=== PATIENT | male | born 1955 | race Caucasian/White ===

== ENCOUNTER 2020-05-04 07:38 | Outpatient (REF) | payer OTHER, SELFPAY ==
[2020-05-04 12:02] LABS: Prostate Specific Antigen 6.62 ng/mL (<0.05-4.0)
== END 2020-05-04 07:39 | disposition home or self-care (01) ==
LOC: HO.HMGCLDS 07:38
PROVIDERS: PCP Internal Medicine; Visit Provider Urology
DX: C61 Malignant neoplasm of prostate (principal)
CPT/HCPCS: 84153

== ENCOUNTER → 2020-05-10 15:11 | Outpatient (BNVA) | payer OTHER, SELFPAY | PROVIDERS: PCP Internal Medicine; Visit Provider Urology | DX: Z76.89 Persons encountering health services in other specified circumstances (principal) ==

== ENCOUNTER 2020-05-21 07:42 | Outpatient (REF) | payer OTHER, SELFPAY ==
[2020-05-21 11:43] LABS: Alanine Aminotransferase 33 U/L (0-40); Albumin Level 4.2 g/dL (3.5-5.0); Alkaline Phosphatase 84 U/L (39-117); Anion Gap 13 (12-20); Aspartate Amino Transferase 23 U/L (5-37); Bilirubin Total 1.1 mg/dL (0.0-1.0); Blood Urea Nitrogen 15 mg/dL (9-16); Calcium 9.2 mg/dL (8.4-10.2); Carbon Dioxide 29 mmol/L (22-29); Chloride 102 mmol/L (96-108); Estimated Glomerular Filt Rate > 60; Glucose Random 142 mg/dL (60-115); Potassium 4.3 mmol/l (3.3-5.1); Sodium 140 mmol/L (135-145); Total Protein 7.6 g/dL (6.5-8.0)
[2020-05-21 11:51] LABS: Ferritin 289 ng/mL (20-250); TSH reflex Free T4 1.08 mIU/mL (0.32-4.0)
== END 2020-05-21 07:43 | disposition home or self-care (01) ==
LOC: HO.HMGCLDS 07:42
PROVIDERS: PCP Internal Medicine; Visit Provider Internal Medicine
DX: I10 Essential (primary) hypertension (principal); C61 Malignant neoplasm of prostate; E83.110 Hereditary hemochromatosis; E78.9 Disorder of lipoprotein metabolism, unspecified; E03.9 Hypothyroidism, unspecified
CPT/HCPCS: 36415; 80053; 82728; 84443

== ENCOUNTER 2020-08-05 07:35 | Outpatient (REF) | payer OTHER, SELFPAY ==
[2020-08-05 11:51] LABS: PSA,Total (Free>4and<10) 7.05 ng/mL (0.00-4.00)
[2020-08-06 11:22] LABS: Free Prostate Spec Ag 1.2 ng/mL; Percent Free Prostate Spec Ag 18 % (calc) (>25); Prostate Specific Ag Total 6.5 ng/mL (< OR = 4.0)
== END 2020-08-05 07:36 | disposition home or self-care (01) ==
LOC: HO.HMGCLDS 07:35
PROVIDERS: PCP Internal Medicine; Visit Provider Urology
DX: R97.20 Elevated prostate specific antigen [PSA] (principal); N40.1 Benign prostatic hyperplasia with lower urinary tract symptoms; N13.8 Other obstructive and reflux uropathy; Z12.5 Encounter for screening for malignant neoplasm of prostate
CPT/HCPCS: 36415; 84153; 84154

== ENCOUNTER 2020-08-27 07:51 | Outpatient (REF) | payer OTHER, SELFPAY ==
[2020-08-27 12:10] LABS: Alanine Aminotransferase 29 U/L (0-40); Albumin Level 4.1 g/dL (3.5-5.0); Alkaline Phosphatase 72 U/L (39-117); Anion Gap 14 (12-20); Aspartate Amino Transferase 26 U/L (5-37); Bilirubin Total 1.1 mg/dL (0.0-1.0); Blood Urea Nitrogen 17 mg/dL (9-16); Calcium 9.3 mg/dL (8.4-10.2); Carbon Dioxide 27 mmol/L (22-29); Chloride 102 mmol/L (96-108); Estimated Glomerular Filt Rate > 60; Glucose Random 105 mg/dL (60-115); Potassium 3.8 mmol/L (3.3-5.1); Sodium 139 mmol/L (135-145); Total Protein 7.6 g/dL (6.5-8.0)
[2020-08-27 12:45] LABS: Ferritin 307 ng/mL (20-250)
== END 2020-08-27 07:52 | disposition home or self-care (01) ==
LOC: HO.HMGCLDS 07:51
PROVIDERS: PCP Internal Medicine; Visit Provider Internal Medicine
DX: E03.8 Other specified hypothyroidism (principal); E66.9 Obesity, unspecified; E78.9 Disorder of lipoprotein metabolism, unspecified; I10 Essential (primary) hypertension; R79.89 Other specified abnormal findings of blood chemistry
CPT/HCPCS: 36415; 80053; 82728

== ENCOUNTER → 2020-09-13 07:57 | Outpatient (BNV) | payer OTHER, SELFPAY | PROVIDERS: PCP Internal Medicine; Visit Provider Internal Medicine Medical Oncology | DX: E83.119 Hemochromatosis, unspecified (principal); D11.9 Benign neoplasm of major salivary gland, unspecified; Z85.46 Personal history of malignant neoplasm of prostate | CPT/HCPCS: 99213; 99214 ==

== ENCOUNTER 2020-09-22 08:49 | Outpatient (REF) | payer OTHER, SELFPAY ==
--- NOTE | ~2020-09-22 | US_ITS ---
EXAMINATION: US SOFT TISSUE NECK CLINICAL INFORMATION: Right parotid mass COMPARISON: None TECHNIQUE: Ultrasound of the right parotid region using a linear transducer. Comparison imaging of the left side was performed. FINDINGS: There is a complex cyst seen in the right parotid gland that measures 2.3 x 1.8 x 1.6 cm. This demonstrates slight wall irregularity and thickening and some internal echoes. This is avascular. There are 2 adjacent irregularly-shaped cystic lesions slightly inferior and laterally in the right parotid gland that measure 1.6 x 1.2 x 2.2 cm and 2 x 1.1 x 1.9 cm. These demonstrate a slight wall thickening and vascularity. There are adjacent lymph nodes. These are upper normal in size. Largest lymph node measures 1.7 x 1.6 x 1.3 cm in sagittal AP and transverse dimension. This demonstrates central hilar flow. This demonstrates slightly slitlike hilum and cortical thickening. Comparison of the contralateral left parotid gland demonstrates a complex cystic lesion in the left parotid gland measuring 1.7 x 1.6 x 1.3 cm. This contains several thin septations. US/US soft tiss head and/or neck IMPRESSION: Complex cystic lesions in the right parotid gland, largest measuring 2.3 x 1.8 x 1.6 cm. Slightly enlarged right cervical lymph nodes. Infectious and neoplastic process should be considered. Parotid lesion(s) would be amenable to ultrasound-guided fine-needle aspiration. 1.7 x 1.6 x 1.3 cm complex cystic lesion in the left parotid gland.
== END 2020-09-22 08:50 | disposition home or self-care (01) ==
LOC: HO.HMGCX 08:49
PROVIDERS: Visit Provider Nurse Practitioner Family
DX: K11.8 Other diseases of salivary glands (principal)
CPT/HCPCS: 76536

== ENCOUNTER 2020-11-23 07:29 | Outpatient (REF) | payer OTHER, SELFPAY ==
[2020-11-23 12:15] LABS: Blood Urea Nitrogen 17 mg/dL (9-16); Estimated Glomerular Filt Rate > 60
== END 2020-11-23 07:30 | disposition home or self-care (01) ==
LOC: HO.HMGCLDS 07:29
PROVIDERS: PCP Internal Medicine; Visit Provider Otolaryngology
DX: Z01.812 Encounter for preprocedural laboratory examination (principal); D37.030 Neoplasm of uncertain behavior of the parotid salivary glands
CPT/HCPCS: 36415; 82565; 84520

== ENCOUNTER 2020-12-09 08:44 | Outpatient (REF) | payer OTHER, SELFPAY ==
--- NOTE | ~2020-12-09 | US_ITS ---
EXAMINATION: US RETROPERITONEAL LIMITED (AORTA) CLINICAL INFORMATION: Abdominal aortic aneurysm screening. History of smoking. COMPARISON: None TECHNIQUE: Monzon-scale, color Doppler and spectral Doppler evaluation of the abdominal aorta. FINDINGS: The aorta is normal. The measurements of the aorta in maximum AP and transverse dimensions respectively are as follows: Proximal: 2.7 x 2.6 cm. Mid: 2.1 x 2.3 cm. Distal: 2.0 x 1.8 cm. PSV: 78 cm/s. The measurements of the common iliac arteries in maximum AP and TRV dimensions are as follows: Right Common Iliac Artery: 1.0 x 1.3 cm. Left Common Iliac Artery: 1.6 x 1.8 cm. US/US aorta IMPRESSION: No abdominal aortic or iliac artery aneurysm.
== END 2020-12-09 08:45 | disposition home or self-care (01) ==
LOC: HO.HMGCX 08:44
PROVIDERS: PCP Internal Medicine; Visit Provider Internal Medicine
DX: Z13.6 Encounter for screening for cardiovascular disorders (principal)
CPT/HCPCS: 76775

== ENCOUNTER 2020-12-13 07:26 | Outpatient (REF) | payer OTHER, SELFPAY ==
[2020-12-13 12:07] LABS: Prostate Specific Antigen 6.93 ng/mL (<0.05-4.0)
== END 2020-12-13 07:27 | disposition home or self-care (01) ==
LOC: HO.HMGCLDS 07:26
PROVIDERS: PCP Internal Medicine; Visit Provider Urology
DX: Z12.5 Encounter for screening for malignant neoplasm of prostate (principal); R97.20 Elevated prostate specific antigen [PSA]
CPT/HCPCS: 36415; 84153

== ENCOUNTER → 2020-12-15 15:14 | Outpatient (BNVA) | payer OTHER, SELFPAY | PROVIDERS: PCP Internal Medicine; Visit Provider Urology | DX: R97.20 Elevated prostate specific antigen [PSA] (principal) ==

== ENCOUNTER 2021-02-08 09:02 | Outpatient (REF) | payer OTHER, SELFPAY ==
[2021-02-08 11:48] LABS: Eosinophils Absolute Auto 0.1 X10*3/uL (0.0-0.4); Eosinophils Percent Auto 1.3 % (0-4); MANUAL DIFF FLAG SCAN; PLT CLUMP 1; SCAN SMEAR FLAG 1
[2021-02-08 11:50] LABS: Basophils Absolute Auto 0.1 X10*3/uL (0.0-0.2); Basophils Percent Auto 0.8 % (0-2); Hematocrit 43.3 % (42-52); Hemoglobin 14.5 g/dl (14.0-18.0); Imm Gran Abs Auto 0.03 X10*3/uL (0.00-0.03); Imm Gran Pct Auto 0.3 % (0.0-0.4); Lymphocytes Percent Auto 22.2 % (20-40); Mean Corpuscular HGB Conc 33.5 g/dl (31.0-36.0); Mean Corpuscular Hemoglobin 28.6 pg (27.0-33.0); Mean Corpuscular Volume 85.4 fL (80-98); Monocytes Percent Auto 10.3 % (2-11); Neutrophils Percent Auto 65.1 % (45-73); Red Blood Count 5.07 X10*6/uL (4.60-5.80); Red Cell Distribution Width 13.8 % (11.0-16.0); White Blood Count 9.2 X10*3/uL (4.8-10.8)
[2021-02-08 12:08] LABS: Alanine Aminotransferase 32 U/L (0-40); Albumin Level 4.1 g/dL (3.5-5.0); Alkaline Phosphatase 67 U/L (39-117); Anion Gap 16 (12-20); Aspartate Amino Transferase 28 U/L (5-37); Bilirubin Total 1.2 mg/dL (0.0-1.0); Blood Urea Nitrogen 15 mg/dL (9-16); Calcium 9.5 mg/dL (8.4-10.2); Carbon Dioxide 22 mmol/L (22-29); Chloride 106 mmol/L (96-108); Estimated Glomerular Filt Rate > 60; Glucose Random 97 mg/dL (60-115); Potassium 4.5 mmol/L (3.3-5.1); Sodium 139 mmol/L (135-145); Total Protein 7.4 g/dL (6.5-8.0)
[2021-02-08 12:28] LABS: SLIDE REVIEW VERIFIED
[2021-02-08 12:29] LABS: TSH reflex Free T4 0.54 uIU/mL (0.32-4.0)
== END 2021-02-08 09:03 | disposition home or self-care (01) ==
LOC: HO.HMGCLDS 09:02
PROVIDERS: PCP Internal Medicine; Visit Provider Internal Medicine
DX: Z01.818 Encounter for other preprocedural examination (principal); I10 Essential (primary) hypertension; E03.8 Other specified hypothyroidism; E78.9 Disorder of lipoprotein metabolism, unspecified; K11.8 Other diseases of salivary glands
CPT/HCPCS: 36415; 80053; 82550; 84443; 85025

== ENCOUNTER 2021-03-09 09:11 | Outpatient (REF) | payer OTHER, SELFPAY ==
[2021-03-09 11:29] LABS: MANUAL DIFF FLAG NO
[2021-03-09 11:33] LABS: Basophils Absolute Auto 0.1 X10*3/uL (0.0-0.2); Basophils Percent Auto 0.8 % (0-2); Eosinophils Absolute Auto 0.2 X10*3/uL (0.0-0.4); Eosinophils Percent Auto 1.9 % (0-4); Hematocrit 43.6 % (42-52); Hemoglobin 14.4 g/dl (14.0-18.0); Imm Gran Abs Auto 0.03 X10*3/uL (0.00-0.03); Imm Gran Pct Auto 0.4 % (0.0-0.4); Lymphocytes Absolute Auto 2.2 X10*3/uL (1.2-4.9); Lymphocytes Percent Auto 26.1 % (20-40); Mean Corpuscular Hemoglobin 28.1 pg (27.0-33.0); Mean Corpuscular Volume 85.2 fL (80-98); Mean Platelet Volume 11.6 fL (9.4-12.4); Monocytes Absolute Auto 0.7 X10*3/uL (0.1-1.2); Monocytes Percent Auto 8.5 % (2-11); Neutrophils Absolute Auto 5.3 X10*3/uL (2.0-8.3); Neutrophils Percent Auto 62.3 % (45-73); Platelet Count 289 X10*3/uL (160-400); Red Blood Count 5.12 X10*6/uL (4.60-5.80); Red Cell Distribution Width 13.4 % (11.0-16.0); White Blood Count 8.6 X10*3/uL (4.8-10.8)
[2021-03-09 11:59] LABS: Alanine Aminotransferase 22 U/L (0-40); Alkaline Phosphatase 65 U/L (39-117); Anion Gap 14 (12-20); Aspartate Amino Transferase 21 U/L (5-37); Bilirubin Total 1.2 mg/dL (0.0-1.0); Blood Urea Nitrogen 18 mg/dL (9-16); Calcium 9.7 mg/dL (8.4-10.2); Carbon Dioxide 27 mmol/L (22-29); Chloride 103 mmol/L (96-108); Estimated Glomerular Filt Rate > 60; Glucose Random 99 mg/dL (60-115); Iron 125 mcg/dL (45-160); Percent Iron Saturation 36 % (15-50); Sodium 140 mmol/L (135-145); Total Iron Binding Capacity 349 mcg/dL (228-428); Total Protein 7.4 g/dL (6.5-8.0); Unsaturated Iron Binding 224 ug/dL
[2021-03-09 12:22] LABS: Ferritin 359 ng/mL (20-250)
[2021-03-09 12:36] LABS: PSA,Total (Free>4and<10) 4.35 ng/mL (0.00-4.00)
[2021-03-10 11:16] LABS: Free Prostate Spec Ag 0.6 ng/mL; Percent Free Prostate Spec Ag 16 % (calc) (>25); Prostate Specific Ag Total 3.7 ng/mL (< OR = 4.0)
== END 2021-03-09 09:12 | disposition home or self-care (01) ==
LOC: HO.HMGCLDS 09:11
PROVIDERS: Urology; PCP Internal Medicine; Visit Provider Internal Medicine Medical Oncology
DX: Z12.5 Encounter for screening for malignant neoplasm of prostate (principal); C61 Malignant neoplasm of prostate; E83.119 Hemochromatosis, unspecified
CPT/HCPCS: 36415; 80053; 82728; 83540; 84153; 84154; 85025

== ENCOUNTER → 2021-03-17 08:32 | Outpatient (BNVA) | payer OTHER, SELFPAY | PROVIDERS: PCP Internal Medicine; Visit Provider Urology ==

== ENCOUNTER 2021-07-29 07:23 | Outpatient (REF) | payer OTHER, SELFPAY ==
[2021-07-29 12:20] LABS: Prostate Specific Antigen 2.47 ng/mL (<0.05-4.0)
== END 2021-07-29 07:24 | disposition home or self-care (01) ==
LOC: HO.HMGCLDS 07:23
PROVIDERS: Visit Provider Urology
DX: C61 Malignant neoplasm of prostate (principal)
CPT/HCPCS: 36415; 84153

== ENCOUNTER → 2021-08-03 15:20 | Outpatient (BNVA) | payer OTHER, SELFPAY | PROVIDERS: PCP Internal Medicine; Visit Provider Urology | DX: C61 Malignant neoplasm of prostate (principal); N31.9 Neuromuscular dysfunction of bladder, unspecified | CPT/HCPCS: Q3014 ==

== ENCOUNTER 2021-08-05 07:15 | Outpatient (REF) | payer OTHER, SELFPAY ==
[2021-08-05 12:04] LABS: Blood Urea Nitrogen 17 mg/dL (9-16)
== END 2021-08-05 07:16 | disposition home or self-care (01) ==
LOC: HO.HMGCLDS 07:15
PROVIDERS: Visit Provider Internal Medicine
DX: Z01.818 Encounter for other preprocedural examination (principal); I10 Essential (primary) hypertension; E03.8 Other specified hypothyroidism; E78.9 Disorder of lipoprotein metabolism, unspecified; K11.8 Other diseases of salivary glands
CPT/HCPCS: 36415; 84520

== ENCOUNTER 2021-09-15 07:08 | Outpatient (REF) | payer OTHER, SELFPAY ==
[2021-09-15 11:07] LABS: MANUAL DIFF FLAG NO
[2021-09-15 11:21] LABS: Basophils Absolute Auto 0.1 X10*3/uL (0.0-0.2); Basophils Percent Auto 0.9 % (0-2); Eosinophils Absolute Auto 0.1 X10*3/uL (0.0-0.4); Eosinophils Percent Auto 1.5 % (0-4); Hematocrit 44.4 % (42.0-52.0); Hemoglobin 14.6 g/dl (14.0-18.0); Imm Gran Abs Auto 0.05 X10*3/uL (0.00-0.03); Imm Gran Pct Auto 0.5 % (0.0-0.4); Lymphocytes Percent Auto 21.4 % (20-40); Mean Corpuscular HGB Conc 32.9 g/dl (31.0-36.0); Mean Corpuscular Hemoglobin 28.5 pg (27.0-33.0); Mean Corpuscular Volume 86.7 fL (80.0-98.0); Mean Platelet Volume 11.5 fL (9.4-12.4); Monocytes Absolute Auto 0.8 X10*3/uL (0.1-1.2); Monocytes Percent Auto 8.7 % (2-11); Neutrophils Absolute Auto 6.4 x10*3/uL (2.0-8.3); Platelet Count 287 X10*3/uL (160-400); Red Blood Count 5.12 X10*6/uL (4.60-5.80); Red Cell Distribution Width 13.7 % (11.0-16.0); White Blood Count 9.5 X10*3/uL (4.8-10.8)
[2021-09-15 11:44] LABS: Alanine Aminotransferase 26 U/L (0-40); Albumin Level 4.1 g/dL (3.5-5.0); Alkaline Phosphatase 74 U/L (39-117); Anion Gap 14 (12-20); Aspartate Amino Transferase 24 U/L (5-37); Blood Urea Nitrogen 16 mg/dL (9-16); Calcium 9.6 mg/dL (8.4-10.2); Carbon Dioxide 25 mmol/L (22-29); Chloride 103 mmol/L (96-108); Estimated Glomerular Filt Rate > 60; Glucose Random 108 mg/dL (60-115); Iron 93 mcg/dL (45-160); Percent Iron Saturation 26 % (15-50); Potassium 4.2 mmol/L (3.3-5.1); Sodium 138 mmol/L (135-145); Total Iron Binding Capacity 361 mcg/dL (228-428); Total Protein 7.5 g/dL (6.5-8.0); Unsaturated Iron Binding 268 ug/dL
[2021-09-15 11:50] LABS: Ferritin 301 ng/mL (20-250); Prostate Specific Antigen Scr 3.59 ng/mL (<0.05-4.0)
[2021-09-15 11:51] LABS: TSH reflex Free T4 0.53 uIU/mL (0.32-4.0)
== END 2021-09-15 07:09 | disposition home or self-care (01) ==
LOC: HO.HMGCLDS 07:08
PROVIDERS: PCP Internal Medicine; Visit Provider Internal Medicine Medical Oncology
DX: E83.119 Hemochromatosis, unspecified (principal); I10 Essential (primary) hypertension; E03.8 Other specified hypothyroidism; E78.9 Disorder of lipoprotein metabolism, unspecified; E66.01 Morbid (severe) obesity due to excess calories; Z12.5 Encounter for screening for malignant neoplasm of prostate
CPT/HCPCS: 36415; 80053; 82728; 83540; 84153; 84443; 85025

== ENCOUNTER 2021-09-22 11:37 | Outpatient (REF) | payer OTHER, SELFPAY ==
--- NOTE | ~2021-09-22 | FL_ITS ---
EXAMINATION: XR C-ARM GREATER THAN 1 HOUR * Intraoperative fluoroscopy provided for Dr. Lira. * Single view of the pelvis was obtained at the time of the procedure. No radiologist in attendance. * Fluoroscopy time: 4.7 seconds. * Dose: 1.7 mGycm2. * Please refer to the procedural note for further full details.
[2021-09-22 11:42] VITALS: BP 127/75; PULSE 92; RESP 19; TEMP 36.3; O2SAT 96; BMI 40.3
--- NOTE | 2021-09-22 12:34 | W.PM.OPN ---
Operative Note Operative Note Date of Service: 09/22/21 Narrative: Preoperative diagnosis: prostate cancer Postoperative diagnosis: prostate cancer Procedure: 1. transrectal ultrasound measurement of prostate 2. transrectal ultrasound-guided pudendal nerve block 3. transrectal ultrasound-guided prostate biopsy 12 core Surgeon: Dr. Paco Lira Anesthetic: Local Indications for procedure: Prostate Cancer Procedure: After informed consent was verified, the patient was brought into the procedure area and lay left-hand side down on the table. Patient identity confirmed. Perioperative antibiotics confirmed. Iodine 10cc with Gel was placed per rectum Ultrasound probe was placed per rectum The prostate was measured in 3 dimensions Total volume equals 60 gm There were no cystic structures and no calcifications noted and there was an ultrasound density in the left paramedian mid gland approx 1cm A ultrasound-guided pudendal nerve block was performed using 10 cc of 1% lidocaine. 8 cc was placed at the base and 2 cc of the apex. A 12 core biopsy was performed with 6 cores each side. Two cores were taken at the apex, mid and base. Cores were spaced between lateral and medial. Right paramedian targetted He tolerated the procedure well. Was able to ambulate to bathroom after 5 minutes. Printed instructions regarding antibiotic use and common side effects such as low-grade temperature and bleeding were given Pathology: 12 core prostate biopsy.
== END 2021-09-22 11:38 | disposition home or self-care (01) ==
LOC: HO.MS 11:37
PROVIDERS: PCP Internal Medicine; Visit Provider Urology
PROC: (CPT 55700; principal; 2021-09-22 12:00)
DX: C61 Malignant neoplasm of prostate (principal); R97.20 Elevated prostate specific antigen [PSA]; N39.41 Urge incontinence; I83.12 Varicose veins of left lower extremity with inflammation
CPT/HCPCS: 55700; 76942; 88305; 88344

== ENCOUNTER → 2021-09-29 11:04 | Outpatient (BNVA) | payer OTHER, SELFPAY | PROVIDERS: PCP Internal Medicine; Visit Provider Urology | DX: C61 Malignant neoplasm of prostate (principal) ==

== ENCOUNTER 2021-11-01 10:08 | Outpatient (REF) | payer OTHER, SELFPAY ==
--- NOTE | ~2021-11-01 | US_ITS ---
EXAMINATION: US LOWER EXTREMITY VENOUS (REFLUX EXAM), BILATERAL CLINICAL INDICATION: This is a 65-year-old male with venous insufficiency and varicose veins. COMPARISON: Comparison is made to a previous venous reflux study which demonstrated no evidence of reflux involving the bilateral great saphenous veins or small saphenous veins. Varicose veins were noted in the lower extremities. TECHNIQUE: Color flow triplex imaging and compression Doppler was performed to evaluate both the deep and the superficial systems bilaterally. To evaluate the superficial system, the examination was performed in the upright position. Color-flow Doppler ultrasound and compression ultrasound were utilized. In addition, maneuvers were utilized to demonstrate reflux. FINDINGS: 1. DEEP VENOUS ULTRASOUND OF THE RIGHT LOWER EXTREMITY: Common Femoral Vein: Compressible, normal respiratory variation and augmented flow. Femoral vein: Compressible, normal color flow and augmentation. Popliteal Vein: Compressible, normal augmentation. Deep Reflux: There is no evidence of reflux in the deep system in either the common femoral vein or the popliteal vein. There is no evidence of a Avlencia's cyst. 2. SUPERFICIAL ULTRASOUND WITH DOPPLER OF RIGHT LOWER EXTREMITY: GREAT SAPHENOUS VEIN: Saphenofemoral Junction: 0.6 cm. There is no reflux Mid Thigh: 0.4 cm. There is no reflux. Above Knee: 0.4 cm. There is no reflux. Below Knee: 0.3 cm. There is isolated reflux of 2468 ms. Mid Calf: 0.4 cm. There is no reflux. Ankle: 0.4 cm GSV REFLUX: There is only isolated reflux below the knee. DUPLICATED GREAT SAPHENOUS VEIN: There is a 0.4 cm duplicated medial great saphenous vein without reflux. SMALL SAPHENOUS VEIN: Proximal: 0.2 cm Distal: 0.2 cm SSV REFLUX: No evidence of reflux. VEIN OF GIACOMINI: None Imaged. PERFORATORS: There is a 0.3 cm mid calf director private without reflux. VARICOSITIES: None Imaged 3. DEEP VENOUS ULTRASOUND OF THE LEFT LOWER EXTREMITY: Common Femoral Vein: Compressible, normal respiratory variation and augmented flow. Femoral Vein: Compressible, normal color flow and augmentation. Popliteal Vein: Compressible, normal augmentation. Deep Reflux: There is no evidence of reflux in the deep system in either the common femoral vein or the popliteal vein. There is no evidence of a Valencia's cyst. 4. SUPERFICIAL ULTRASOUND WITH DOPPLER OF LEFT LOWER EXTREMITY: GREAT SAPHENOUS VEIN: Saphenofemoral Junction: 0.7 cm Mid Thigh: 0.3 cm Above Knee: 0.3 cm. There is no reflux at this level or above. Below Knee: 0.2 cm. There is isolated reflux of 1272 ms. There is no reflux below this level. Mid Calf: 0.2 cm Ankle: 0.3 cm GSV REFLUX: No evidence of reflux. DUPLICATED GREAT SAPHENOUS VEIN: None SMALL SAPHENOUS VEIN: Proximal: 0.2 cm Distal: 0.1 cm SSV REFLUX: No evidence of reflux. VEIN OF GIACOMINI: None Imaged. PERFORATORS: There are 0.4 cm mid calf perforators without reflux. VARICOSITIES: There are 0.3 cm distal calf varicose veins without reflux. There is a lateral proximal calf 0.2 cm varicose vein with greater than 3 seconds of reflux. US/US venous duplex LE BI IMPRESSION: 1. There are patent bilateral great saphenous veins and small saphenous veins without evidence of significant reflux or insufficiency. 2. Varicose veins are seen in the left calf.
== END 2021-11-01 10:09 | disposition home or self-care (01) ==
LOC: HO.US 10:08
PROVIDERS: Visit Provider Surgery Vascular Surgery
DX: I83.12 Varicose veins of left lower extremity with inflammation (principal)
CPT/HCPCS: 93970

== ENCOUNTER 2021-11-30 07:41 | Outpatient (REF) | payer OTHER, SELFPAY ==
[2021-11-30 11:28] LABS: MANUAL DIFF FLAG NO
[2021-11-30 11:32] LABS: Basophils Absolute Auto 0.1 X10*3/uL (0.0-0.2); Basophils Percent Auto 0.9 % (0-2); Eosinophils Absolute Auto 0.1 X10*3/uL (0.0-0.4); Eosinophils Percent Auto 1.6 % (0-4); Hematocrit 42.8 % (42.0-52.0); Hemoglobin 14.2 g/dl (14.0-18.0); Imm Gran Abs Auto 0.03 X10*3/uL (0.00-0.03); Imm Gran Pct Auto 0.4 % (0.0-0.4); Lymphocytes Absolute Auto 1.8 X10*3/uL (1.2-4.9); Mean Corpuscular HGB Conc 33.2 g/dl (31.0-36.0); Mean Corpuscular Hemoglobin 28.2 pg (27.0-33.0); Mean Corpuscular Volume 85.1 fL (80.0-98.0); Mean Platelet Volume 11.3 fL (9.4-12.4); Monocytes Absolute Auto 0.3 X10*3/uL (0.1-1.2); Monocytes Percent Auto 4.1 % (2-11); Neutrophils Absolute Auto 5.8 x10*3/uL (2.0-8.3); Platelet Count 270 X10*3/uL (160-400); Red Blood Count 5.03 X10*6/uL (4.60-5.80); White Blood Count 8.2 X10*3/uL (4.8-10.8)
[2021-11-30 11:59] LABS: Alanine Aminotransferase 21 U/L (0-40); Albumin Level 3.9 g/dL (3.5-5.0); Alkaline Phosphatase 65 U/L (39-117); Anion Gap 12 (12-20); Aspartate Amino Transferase 18 U/L (5-37); Blood Urea Nitrogen 15 mg/dL (9-16); Calcium 9.2 mg/dL (8.4-10.2); Carbon Dioxide 25 mmol/L (22-29); Chloride 104 mmol/L (96-108); Estimated Glomerular Filt Rate > 60; Glucose Random 168 mg/dL (60-115); Iron 112 mcg/dL (45-160); Percent Iron Saturation 33 % (15-50); Potassium 3.8 mmol/L (3.3-5.1); Sodium 137 mmol/L (135-145); Total Iron Binding Capacity 337 mcg/dL (228-428); Total Protein 7.4 g/dL (6.5-8.0); Unsaturated Iron Binding 225 ug/dL
[2021-11-30 12:21] LABS: Ferritin 321 ng/mL (20-250); Prostate Specific Antigen Scr 4.87 ng/mL (<0.05-4.0)
== END 2021-11-30 07:42 | disposition home or self-care (01) ==
LOC: HO.HMGCLDS 07:41
PROVIDERS: PCP Internal Medicine; Referring Provider Internal Medicine Medical Oncology; Visit Provider Urology
DX: C61 Malignant neoplasm of prostate (principal); E83.119 Hemochromatosis, unspecified
CPT/HCPCS: 36415; 80053; 82728; 83540; 84153; 85025

== ENCOUNTER 2022-01-27 07:24 | Outpatient (REF) | payer OTHER, SELFPAY ==
[2022-01-27 12:05] LABS: PSA,Total (Free>4and<10) 3.93 ng/mL (0.00-4.00)
== END 2022-01-27 07:25 | disposition home or self-care (01) ==
LOC: HO.HMGCLDS 07:24
PROVIDERS: PCP Internal Medicine; Visit Provider Urology
DX: Z12.5 Encounter for screening for malignant neoplasm of prostate (principal); C61 Malignant neoplasm of prostate
CPT/HCPCS: 36415; 84153

== ENCOUNTER 2022-03-21 07:44 | Outpatient (REF) | payer OTHER, SELFPAY ==
[2022-03-21 11:28] LABS: MANUAL DIFF FLAG NO
[2022-03-21 11:50] LABS: Basophils Absolute Auto 0.1 X10*3/uL (0.0-0.2); Basophils Percent Auto 1.1 % (0-2); Eosinophils Absolute Auto 0.2 X10*3/uL (0.0-0.4); Eosinophils Percent Auto 1.7 % (0-4); Hematocrit 42.6 % (42.0-52.0); Hemoglobin 14.3 g/dl (14.0-18.0); Imm Gran Abs Auto 0.05 X10*3/uL (0.00-0.03); Imm Gran Pct Auto 0.6 % (0.0-0.4); Lymphocytes Absolute Auto 1.7 X10*3/uL (1.2-4.9); Lymphocytes Percent Auto 19.2 % (20-40); Mean Corpuscular HGB Conc 33.6 g/dl (31.0-36.0); Mean Corpuscular Hemoglobin 28.7 pg (27.0-33.0); Mean Corpuscular Volume 85.5 fL (80.0-98.0); Mean Platelet Volume 11.2 fL (9.4-12.4); Monocytes Absolute Auto 0.5 X10*3/uL (0.1-1.2); Monocytes Percent Auto 5.6 % (2-11); Neutrophils Absolute Auto 6.3 x10*3/uL (2.0-8.3); Neutrophils Percent Auto 71.8 % (45-73); Platelet Count 275 X10*3/uL (160-400); Red Blood Count 4.98 X10*6/uL (4.60-5.80); Red Cell Distribution Width 14.1 % (11.0-16.0); White Blood Count 8.7 X10*3/uL (4.8-10.8)
[2022-03-21 12:24] LABS: Alanine Aminotransferase 28 U/L (0-40); Albumin Level 4.1 g/dL (3.5-5.0); Alkaline Phosphatase 71 U/L (39-117); Anion Gap 16 (12-20); Aspartate Amino Transferase 23 U/L (5-37); Bilirubin Total 0.9 mg/dL (0.0-1.0); Blood Urea Nitrogen 16 mg/dL (9-16); Calcium 9.6 mg/dL (8.4-10.2); Carbon Dioxide 24 mmol/L (22-29); Chloride 105 mmol/L (96-108); Estimated Glomerular Filt Rate > 60; Glucose Random 119 mg/dL (60-115); Iron 109 mcg/dL (45-160); Percent Iron Saturation 32 % (15-50); Sodium 141 mmol/L (135-145); Total Iron Binding Capacity 343 mcg/dL (228-428); Total Protein 7.6 g/dL (6.5-8.0); Unsaturated Iron Binding 234 ug/dL
[2022-03-21 12:49] LABS: Ferritin 355 ng/mL (20-250); Prostate Specific Antigen Scr 3.32 ng/mL (<0.05-4.0)
== END 2022-03-21 07:45 | disposition home or self-care (01) ==
LOC: HO.HMGCLDS 07:44
PROVIDERS: PCP Internal Medicine; Visit Provider Internal Medicine Medical Oncology
DX: Z12.5 Encounter for screening for malignant neoplasm of prostate (principal); E83.119 Hemochromatosis, unspecified
CPT/HCPCS: 36415; 80053; 82728; 83540; 84153; 85025

== ENCOUNTER 2022-05-25 07:55 | Outpatient (REF) | payer OTHER, SELFPAY ==
[2022-05-25 13:19] LABS: Blood Urea Nitrogen 19 mg/dL (9-16); Estimated Glomerular Filt Rate > 60
[2022-05-25 13:23] LABS: Prostate Specific Antigen 3.43 ng/mL (<0.05-4.0)
== END 2022-05-25 07:56 | disposition home or self-care (01) ==
LOC: HO.HMGCLDS 07:55
PROVIDERS: PCP Internal Medicine; Visit Provider Urology
DX: Z12.5 Encounter for screening for malignant neoplasm of prostate (principal); C61 Malignant neoplasm of prostate
CPT/HCPCS: 36415; 82565; 84153; 84520

== ENCOUNTER → 2022-05-30 15:02 | Outpatient (BNVA) | payer OTHER, SELFPAY | PROVIDERS: PCP Internal Medicine; Visit Provider Urology | DX: C61 Malignant neoplasm of prostate (principal) ==

== ENCOUNTER 2022-08-18 12:49 | Outpatient (REF) | payer OTHER, SELFPAY ==
[2022-08-18 15:06] LABS: Leukocytes Stool Qualitative NEGATIVE (NEGATIVE)
[2022-08-18 15:31] LABS: Campylobacter Not Detected (Not Detect.); E. coli EAEC Not Detected (Not Detect.); E. coli EPEC Not Detected (Not Detect.); E. coli ETEC Not Detected (Not Detect.); E. coli STEC Not Detected (Not Detect.); Plesiomonas shigelloides Not Detected (Not Detect.); Salmonella Not Detected (Not Detect.); Vibrio Not Detected (Not Detect.); Vibrio Cholerae Not Detected (Not Detect.); Yersinia enterocolitica Not Detected (Not Detect.)
[2022-08-18 15:32] LABS: Adenovirus F 40/41 Not Detected (Not Detect.); Astrovirus Not Detected (Not Detect.); Cryptosporidium Not Detected (Not Detect.); Cyclospora cayetanensis Not Detected (Not Detect.); Entamoeba histolytica Not Detected (Not Detect.); Giardia lamblia Not Detected (Not Detect.); Norovirus GI/GII Not Detected (Not Detect.); Rotavirus A Not Detected (Not Detect.); Sapovirus Not Detected (Not Detect.); Shigella sp./EIEC Not Detected (Not Detect.)
== END 2022-08-18 12:50 | disposition home or self-care (01) ==
LOC: HO.HMGCLNP 12:49
PROVIDERS: PCP Internal Medicine; Visit Provider Internal Medicine Gastroenterology
DX: Z13.89 Encounter for screening for other disorder (principal)
CPT/HCPCS: 87177; 87209; 87507; 89055

== ENCOUNTER 2022-11-23 06:57 | Outpatient (REF) | payer OTHER, SELFPAY ==
[2022-11-23 12:11] LABS: Alanine Aminotransferase 25 U/L (0-40); Albumin Level 3.9 g/dL (3.5-5.0); Alkaline Phosphatase 71 U/L (39-117); Anion Gap 12 (12-20); Aspartate Amino Transferase 22 U/L (5-37); Bilirubin Total 1.5 mg/dL (0.0-1.0); Blood Urea Nitrogen 20 mg/dL (9-16); Calcium 9.4 mg/dL (8.4-10.2); Carbon Dioxide 26 mmol/L (22-29); Chloride 105 mmol/L (96-108); Estimated Glomerular Filt Rate > 60; Glucose Random 112 mg/dL (60-115); Potassium 3.7 mmol/L (3.3-5.1); Sodium 139 mmol/L (135-145); Total Protein 7.2 g/dL (6.5-8.0)
[2022-11-23 12:27] LABS: TSH reflex Free T4 1.09 uIU/mL (0.32-4.0)
[2022-11-25 18:38] LABS: LDL Cholesterol Direct 77 mg/dL (<100)
== END 2022-11-23 06:58 | disposition home or self-care (01) ==
LOC: HO.HMGCLDS 06:57
PROVIDERS: Absent Provider Urology; PCP Internal Medicine; Visit Provider Internal Medicine
DX: Z12.5 Encounter for screening for malignant neoplasm of prostate (principal); C61 Malignant neoplasm of prostate; E03.8 Other specified hypothyroidism; I10 Essential (primary) hypertension; E78.9 Disorder of lipoprotein metabolism, unspecified
CPT/HCPCS: 36415; 80053; 83721; 84153; 84443

== ENCOUNTER 2022-11-29 13:00 | Outpatient (AMB) | payer OTHER, SELFPAY ==
--- NOTE | 2022-11-29 16:51 | MHC.OFFVIS ---
Intake Intake Visit Reasons: 6M PSA(set) Allergies No Known Allergies [No Known Allergies*] Allergy (Verified 07/19/22 08:24) Medication List - Last Reconciled 11/29/22 by Paco Lira MD atenolol 25 mg PO DAILY 90 days cholecalciferol (vitamin D3) 25 mcg PO DAILY finasteride 5 mg PO DAILY 90 days levothyroxine 175 mcg PO QAM losartan-hydrochlorothiazide 100-25 mg 1 tab PO DAILY 30 days lovastatin 20 mg PO DAILY tamsulosin 0.4 mg PO DAILY 90 days HPI HPI Comments History of Present Illness Details Alonso is a pleasant male. He is a patient of Dr. Aparicio. He is seen for the following urologic conditions - prostate cancer - BPH Telemedicine evaluation 15 minute consultation Doximity hugo Video attempted PSA continued to fall Remains on finasteride and tamsulosin for lower urinary tract symptoms Post void dribbling resolved 6m f/u Prostate cancer 2013, repeat biopsy 202122 grade group 1 Initial diagnosis a number of years ago he is unsure of the [place]injock score PSA at time of diagnosis in the 8 range Elected for active surveillance - previously has considered cryotherapy PSA - 01/01 6.9 18%, 03/03 4.35 16%, 08/02 2.5, 10/02 28, 12/02 4.8, 02/02 3.9, 06/05 3.3, 12/03 2.6 Imaging - 02/01 MRI 90 g prostate, posterior right paramedian 1.1 cm PI-RADS 4 lesion apex-mid Repeat biopsy 10/02 - 06/25 cores positive Gl 3+3 - 5%, 30% RML, RBM 60 g on ultrasound pT1c Prolaris genetic evaluation - active surveillance group - DSM 2.1 Lower urinary tract symptoms Ongoing weakness of stream Good response to tamsulosin and finasteride Minimal side effects PFSH Medical History Elevated PSA Urge incontinence Surgical History Hx of tonsillectomy Family History Brother Diabetes Maternal Grandmother Asthma Father Heart disease Mother Varicose veins of both lower extremities with pain Other Hypertension Social History Household Members: Family Housing: Apartment Are you a primary health care recruiter to a significant other at home: No Do you presently have visiting nurse or other home services: No Alcohol intake: current Alcohol intake frequency: holidays/special occasions only Patient Tobacco Use Status: Former Tobacco user e-Cigarette/Vaping Use: Never Used Second Hand Smoke Exposure: Yes service: No Current occupational status: employed Current occupational exposures/hazards: No Cognitive needs: No Hearing needs: No Vision needs: Yes (wears glasses) Review of Systems Const All systems reviewed & are unremarkable except as noted in HPI and below Reports no additional complaints Resp Reports no additional complaints GI Reports no additional complaints Reports as per HPI Musc Reports no additional complaints Physical Exam Telemedicine evaluation Appropriate responses Regular breathing rate and rhythm HEENT Head: Yes normal to inspection Ears: hearing grossly normal bilaterally Eyes General: appearance normal, both eyes and all related structures Neck Neck: Yes normal visual inspection Chest Chest palpation & inspection: normal inspection of the chest Resp Effort & Inspection: normal respiratory effort and able to speak in complete sentences Assessment & Plan Assessment & Plan (1) BPH w urinary obs/LUTS: Code(s): N40.1 - Benign prostatic hyperplasia with lower urinary tract symptoms; N13.8 - Other obstructive and reflux uropathy (2) Prostate cancer: Comment: 2013 90 g prostate - Bx 202122 Grade Group 1 - Prolaris group Code(s): C61 - Malignant neoplasm of prostate Plan Six month follow-up Orders: Orders PSA,Total (Free>4and<10) 6 Months C61 - Malignant neoplasm of prostate Medications: Refilled finasteride 5 mg PO DAILY 90 tabs 1RF 90 days C61 - Malignant neoplasm of prostate, N13.8 - Other obstructive and reflux uropathy, N40.1 - Benign prostatic hyperplasia with lower urinary tract symptoms, R33.9 - Retention of urine, unspecified Patient Instructions: Imaging studies, laboratory and physical exam results were discussed and reviewed in detail. No major barriers to patient understanding were identified. An opportunity to ask questions regarding the treatment plan was provided. All questions were answered. The patient expressed understanding and agreement with the above treatment plan. The patient is aware they should contact our office by phone for worsening of their current condition or the appearance of new urologic symptoms. Compliance is encouraged with any medications and followup testing that is ordered. It is a privilege to participate in the urologic care of your patient. If you have any questions or concerns regarding treatment for the above conditions, or other urologic issues, please do not hesitate to contact me. The office telephone contact is [phone]. This note is constructed using voice recognition software. While every effort has been made to ensure accuracy termite control technician errors may have been included. Yours sincerely, Dr Paco Lira MD, [facility] - Urology Providers of Expert, Compassionate Care for the Genitourinary System Telehealth Telehealth Location of provider rendering services: practice address Location of patient: address on file Patient Identification confirmed using: Name, : Yes Telehealth method: video Patient verbally consented to treatment: Yes Patient verbally consented to billing insurance company: Yes Patient informed of any privacy concerns related to visit: Yes Coding Level of Care Code Tele Est Pt Level 3 (07593) Diagnoses BPH w urinary obs/LUTS N40.1; N13.8 Prostate cancer C61
== END 2022-11-29 16:54 | disposition home or self-care (01) ==
LOC: HO.HUSH 13:01
PROVIDERS: PCP Internal Medicine; Visit Provider Urology
DX: N40.1 Benign prostatic hyperplasia with lower urinary tract symptoms (principal); N13.8 Other obstructive and reflux uropathy; C61 Malignant neoplasm of prostate
CPT/HCPCS: 99213

== ENCOUNTER → 2022-11-29 13:00 | Outpatient (BNVA) | payer OTHER, SELFPAY | PROVIDERS: PCP Internal Medicine; Visit Provider Urology ==

== ENCOUNTER 2022-12-06 14:58 | Outpatient (AMB) | payer OTHER, SELFPAY ==
--- NOTE | 2022-12-06 14:59 | MHC.PC.OV ---
Vital Signs 12/06/22 15:02 Height 5 ft 8 in Weight 265 lb 4 oz BMI 40.3 BP 126/54 L Blood Pressure Location Lt brachial Position Sitting Pulse 71 Pulse Source Pulse Oximeter Pulse Oximetry (%) 97 Oxygen Delivery Method Room Air Intake Visit Reasons: 4m, bp, cholesterol Allergies No Known Allergies [No Known Allergies*] Allergy (Verified 12/06/22 15:00) Tobacco use date assessed: 12/06/22 Fall risk assessment: No Falls in past year Last assessed Fall Risk: 12/06/22 Dental Screening Dental Screen Date: 12/06/22 Did you have a dental visit in the last 12 months?: No Did you have a dental problem in the last 6 months where you did not have access to dental care?: No Was dental information given to patient?: No HPI 4m, bp, cholesterol HPI Details Patient is 66-year-old gentleman this is his regular follow-up appointment Since we stopped the amlodipine his swelling is much better usually he has more swelling left leg than right leg. There is no stasis dermatitis this visit. His blood pressure is 126/54 patient is now taking atenolol 25 mg, losartan hydrochlorothiazide 100-25 mg. Patient is taking lovastatin 20 mg for lipid control Continue levothyroxine 175 mcg Patient is also seeing Dr. Lira for prostate management And Dr. Hernandez for high ferritin level, and hemochromatosis Follow-up 4 months PFS Medical History Elevated PSA Urge incontinence Surgical History Hx of tonsillectomy Family History Brother Diabetes Maternal Grandmother Asthma Father Heart disease Mother Varicose veins of both lower extremities with pain Other Hypertension Social History Household Members: Family Housing: Apartment Are you a primary day care teacher to a significant other at home: No Do you presently have visiting nurse or other home services: No Alcohol intake: current Alcohol intake frequency: holidays/special occasions only Patient Tobacco Use Status: Former Tobacco user e-Cigarette/Vaping Use: Never Used Second Hand Smoke Exposure: Yes service: No Current occupational status: employed Current occupational exposures/hazards: No Cognitive needs: No Hearing needs: No Vision needs: Yes (wears glasses) Questionnaire PHQ-9 Over the last 2 weeks, how often have you been bothered by any of the following problems? 1. Little interest or pleasure in doing things: not at all 2. Feeling down, depressed, or hopeless: not at all 3. Trouble falling or staying asleep, or sleeping too much: not at all 4. Feeling tired or having little energy: several days 5. Poor appetite or overeating: not at all 6. Feeling bad about yourself - or that you are a failure or have let yourself or your family down: not at all 7. Trouble concentrating on things, such as reading the newspaper or watching television: not at all 8. Moving or speaking so slowly that other people could have noticed. Or the opposite - being so fidgety or restless that you have been moving around a lot more than usual: not at all 9. Thoughts that you would be better off or of hurting yourself in some way: not at all Total score: 1 Depression Screening Interpretation: Negative 23300 - PHQ-9 Billing: Yes Source: Developed by Drs. Damaso Reyna, Carmen Myers, Samuel Cardoso and colleagues, with an educational concepcion from [employer]. Thrive Questionnaire Date Thrive assessed: 12/06/22 I am a: Patient What is your living situation today?: I have a steady place to live Within the past 12 months, did the food you bought not last and you didn't have the money to get more?: Never true Within the past 12 months, did you worry whether your food would run out before you got money to buy more?: Never true Do you have trouble paying for medicines?: No Do you have trouble getting transportation to medical appointments?: No Do you have trouble paying your heating and electricity bill?: No Do you have trouble taking care of your child, family member or friend?: No Do you have trouble with day-to-day activities such as bathing, preparing meals, shopping, managing finances, etc.?: No Are you currently unemployed and looking for a job?: No Are you interested in more education?: No AUDIT C Alcohol Use Questionnaire (AUDIT-C) 1. How often do you have a drink containing alcohol?: Never 3. How often do you have six or more drinks on one occasion?: Never Total Score: 0 Score Reviewed/Action Taken: Yes SYLVIA-7 AMB Questionnaire SYLVIA-7 Date SYLVIA - 7 assessed: 12/06/22 Feeling nervous, anxious, or on edge: 0 = Not at all Not being able to stop or control worryin = Not at all Worrying too much about different things: 0 = Not at all Trouble relaxin = Not at all Being so restless that it is hard to sit still: 0 = Not at all Becoming easily annoyed or irritable: 1 = Several days Feeling afraid as if something awful might happen: 0 = Not at all Total SYLVIA-7 score (0-4 normal; 5-9 mild; 10-14 moderate; 15-21 severe): 1 Source: Developed by Drs. Damaso Reyna, Carmen Myers, Samuel Cardoso and colleagues, with an educational concepcion from [employer]. SYLVIA-7 Assessment Billing SYLVIA-7 Assessment Tool: SYLVIA-7 Assessment 08352 Review of Systems Const Denies chills and Denies fever(s) ENT Denies epistaxis and Denies nasal discharge Card Denies chest pain Resp Denies chest congestion, Denies cough and Denies hemoptysis GI Denies diarrhea and Denies nausea Skin/Breast Denies rash Neuro Reports no additional complaints Psych Reports no additional complaints Endo Reports no additional complaints Physical exam (Primary Care) Vital Signs: Last Vital Signs Pulse 71 12/06/22 15:02 BP 126/54 L 12/06/22 15:02 Pulse Ox 97 12/06/22 15:02 Oxygen Delivery Method Room Air 12/06/22 15:02 BMI result Body Mass Index 40.3 Tobacco/Smoking Status: Tobacco use Status Tobacco use date assessed 12/06/22 12/06/22 15:01 Patient Tobacco Use Status Former Tobacco user 12/06/22 15:01 e-Cigarette/Vaping Use Never Used 12/06/22 15:01 PHQ-9: PHQ-9 Score PHQ-9: Total score 1 12/06/22 15:29 Depression Screening Interpretation: Negative Thrive Assessment: Date of Thrive Assessment Date Thrive assessed 12/06/22 12/06/22 15:29 Const General: cooperative, comfortable and no acute distress Orientation/consciousness: patient oriented x3 HENMT Head: Yes normocephalic Eyes General: appearance normal, both eyes and all related structures Neck Neck: Yes supple Resp Effort & Inspection: normal respiratory effort, no cough and no stridor Cardio Rhythm: regular rhythm Heart sounds: S1 normal heart sound present and S2 normal heart sound present Skin General skin exam: turgor normal Neuro General: patient oriented x3, tone normal and moves all extremities Assessment and Plan Assessment & Plan (1) Lipid disorder: Code(s): E78.9 - Disorder of lipoprotein metabolism, unspecified (2) Other specified hypothyroidism: Code(s): E03.8 - Other specified hypothyroidism (3) Hypertension, essential: Code(s): I10 - Essential (primary) hypertension (4) Elevated ferritin: Code(s): R79.89 - Other specified abnormal findings of blood chemistry (5) Hemochromatosis: Code(s): E83.119 - Hemochromatosis, unspecified (6) Prostate cancer: Comment: 2014 90 g prostate - Bx 202122 Grade Group 1 - Prolaris group Code(s): C61 - Malignant neoplasm of prostate Plan Patient is 66-year-old gentleman this is his regular follow-up appointment Since we stopped the amlodipine his swelling is much better usually he has more swelling left leg than right leg. There is no stasis dermatitis this visit. His blood pressure is 126/54 patient is now taking atenolol 25 mg, losartan hydrochlorothiazide 100-25 mg. Patient is taking lovastatin 20 mg for lipid control Continue levothyroxine 175 mcg Patient is also seeing Dr. Lira for prostate management And Dr. Hernandez for high ferritin level, and hemochromatosis Follow-up 4 months Coding Level of Care Code Est Pt Level 4 (57624) Diagnoses Lipid disorder E78.9 Other specified hypothyroidism E03.8 Hypertension, essential I10 Elevated ferritin R79.89 Hemochromatosis E83.119 Prostate cancer C61 Additional Codes SYLVIA-7 Assessment Billing - SYLVIA-7 Assessment Tool: SYLVIA-7 Assessment 43613 ([id number])
[2022-12-06 15:02] VITALS: BP 126/54; PULSE 71; O2SAT 97; BMI 40.3
== END 2022-12-06 16:13 | disposition home or self-care (01) ==
PROVIDERS: Visit Provider Internal Medicine
DX: E03.8 Other specified hypothyroidism (principal); I10 Essential (primary) hypertension; C61 Malignant neoplasm of prostate; E78.9 Disorder of lipoprotein metabolism, unspecified; R79.89 Other specified abnormal findings of blood chemistry; E83.119 Hemochromatosis, unspecified
CPT/HCPCS: 99214

== ENCOUNTER 2023-04-11 15:36 | Outpatient (AMB) | payer OTHER, SELFPAY ==
[2023-04-11 15:44] VITALS: BP 108/62; PULSE 82; O2SAT 96; BMI 39.5
--- NOTE | 2023-04-11 15:44 | A.OFFPC_ITS ---
Vital Signs 3 04/11/23 15:44 Height 5 ft 8 in Weight 260 lb BMI 39.5 BP 108/62 Blood Pressure Location Lt brachial Position Sitting Pulse 82 Pulse Source Pulse Oximeter Pulse Oximetry (%) 96 Oxygen Delivery Method Room Air Intake Visit Reasons: Follow up Allergies No Known Allergies [No Known Allergies*] Allergy (Verified 04/11/23 15:45) Medication List - Last Reconciled 04/11/23 by Bryan Aparicio MD atenolol 25 mg PO DAILY 90 days cholecalciferol (vitamin D3) 25 mcg PO DAILY finasteride 5 mg PO DAILY 90 days levothyroxine 175 mcg PO QAM losartan-hydrochlorothiazide 100-25 mg 1 tab PO DAILY 30 days lovastatin 20 mg PO DAILY tamsulosin 0.4 mg PO DAILY 90 days Tobacco use date assessed: 04/11/23 Fall risk assessment: No Falls in past year Last assessed Fall Risk: 04/11/23 Dental Screening Dental Screen Date: 04/11/23 Did you have a dental visit in the last 12 months?: Yes Did you have a dental problem in the last 6 months where you did not have access to dental care?: No Was dental information given to patient?: Patient has dentist HPI Follow up 2 HPI0 Details Patient is 67-year-old gentleman this is his regular follow-up appointment Hypertension: Blood pressure is well controlled patient is monitoring it at home as well, he is taking atenolol 25 mg, and losartan hydrochlorothiazide 100- 25 mg Patient is tolerating medication no side effects He is complaining of discomfort right forearm, on examination it seems as if he has drained forearm muscles. I would recommend to take it easy for few days do not lift anything heavy. Patient says that since he has not been working for the past few days he is feeling little better. He also have all small lump right forehead which seems to be a small cyst. If it gets bigger then we can have it removed. Patient will get back to me. Patient is taking lovastatin 20 mg for lipid control Continue levothyroxine 175 mcg Patient is also seeing Dr. Lira for prostate management And Dr. Hernandez for high ferritin level, and hemochromatosis BMI is 39.5 patient is trying to lose weight Labs are due now and then again in 6 months order placed Follow-up 6 months [facility] Medical History Elevated PSA Urge incontinence Surgical History Hx of tonsillectomy Family History Brother Diabetes Maternal Grandmother Asthma Father Heart disease Mother Varicose veins of both lower extremities with pain Other Hypertension Social History Household Members: Family Housing: Apartment Are you a primary healthcare interpreter to a significant other at home: No Do you presently have visiting nurse or other home services: No Alcohol intake: current Alcohol intake frequency: holidays/special occasions only Patient Tobacco Use Status: Former Tobacco user e-Cigarette/Vaping Use: Never Used Second Hand Smoke Exposure: Yes service: No Current occupational status: employed Current occupational exposures/hazards: No Cognitive needs: No Hearing needs: No Vision needs: Yes (wears glasses) Questionnaire PHQ-9 Over the last 2 weeks, how often have you been bothered by any of the following problems? 1. Little interest or pleasure in doing things: several days 2. Feeling down, depressed, or hopeless: several days 3. Trouble falling or staying asleep, or sleeping too much: not at all 4. Feeling tired or having little energy: several days 5. Poor appetite or overeating: not at all 6. Feeling bad about yourself - or that you are a failure or have let yourself or your family down: not at all 7. Trouble concentrating on things, such as reading the newspaper or watching television: not at all 8. Moving or speaking so slowly that other people could have noticed. Or the opposite - being so fidgety or restless that you have been moving around a lot more than usual: not at all 9. Thoughts that you would be better off or of hurting yourself in some way: not at all Total score: 3 Depression Screening Interpretation: Negative Depression Screening Done: Yes 72484 - PHQ-9 Billing: Yes Source: Developed by Drs. Damaso Reyna, Carmen Myers, Samuel Cardoso and colleagues, with an educational concepcion from [employer]. Thrive Questionnaire Date Thrive assessed: 12/06/22 AUDIT C Alcohol Use Questionnaire (AUDIT-C) 1. How often do you have a drink containing alcohol?: Never 3. How often do you have six or more drinks on one occasion?: Never Total Score: 0 Score Reviewed/Action Taken: Yes SYLVIA-7 AMB Questionnaire SYLVIA-7 Date SYLVIA - 7 assessed: 04/11/23 Feeling nervous, anxious, or on edge: 1 = Several days Not being able to stop or control worryin = Not at all Worrying too much about different things: 0 = Not at all Trouble relaxin = Not at all Being so restless that it is hard to sit still: 0 = Not at all Becoming easily annoyed or irritable: 1 = Several days Feeling afraid as if something awful might happen: 0 = Not at all Total SYLVIA-7 score (0-4 normal; 5-9 mild; 10-14 moderate; 15-21 severe): 2 Source: Developed by Drs. Damaso Reyna, Carmen Myers, Samuel Cardoso and colleagues, with an educational concepcion from [employer]. SYLVIA-7 Assessment Billing SYLVIA-7 Assessment Tool: SYLVIA-7 Assessment 27139 Review of Systems Const Denies chills and Denies fever(s) ENT Denies epistaxis and Denies nasal discharge Card Denies chest pain Resp Denies chest congestion, Denies cough and Denies hemoptysis GI Denies diarrhea and Denies nausea Skin/Breast Denies rash Neuro Reports no additional complaints Psych Reports no additional complaints Endo Reports no additional complaints Physical exam (Primary Care) Vital Signs: Last Vital Signs Pulse 82 04/11/23 15:44 BP 108/62 04/11/23 15:44 Pulse Ox 96 04/11/23 15:44 Oxygen Delivery Method Room Air 04/11/23 15:44 BMI result Body Mass Index 39.5 Tobacco/Smoking Status: Tobacco use Status Tobacco use date assessed 04/11/23 04/11/23 15:47 Patient Tobacco Use Status Former Tobacco user 04/11/23 15:47 e-Cigarette/Vaping Use Never Used 04/11/23 15:47 PHQ-9: PHQ-9 Score PHQ-9: Total score 3 04/11/23 15:48 Depression Screening Interpretation: Negative Thrive Assessment: Date of Thrive Assessment Date Thrive assessed 12/06/22 04/11/23 15:47 Const General: cooperative, comfortable and no acute distress Orientation/consciousness: patient oriented x3 HENMT Head: Yes normocephalic Head images: 2 1. Small lump Eyes General: appearance normal, both eyes and all related structures Neck Neck: Yes supple Resp Effort & Inspection: normal respiratory effort, no cough and no stridor Cardio Rhythm: regular rhythm Heart sounds: S1 normal heart sound present and S2 normal heart sound present Skin General skin exam: turgor normal Neuro General: patient oriented x3, tone normal and moves all extremities Extrem Right lower extremity: no edema Left lower extremity: no edema Assessment and Plan Assessment & Plan (1) Other specified hypothyroidism: Code(s): E03.8 - Other specified hypothyroidism (2) Lipid disorder: Code(s): E78.9 - Disorder of lipoprotein metabolism, unspecified (3) Hypertension, essential: Code(s): I10 - Essential (primary) hypertension (4) Morbid obesity due to excess calories: Code(s): E66.01 - Morbid (severe) obesity due to excess calories (5) Hemochromatosis: Code(s): E83.119 - Hemochromatosis, unspecified Qualifiers: Hemochromatosis type: other hemochromatosis Qualified Code(s): E83.118 - Other hemochromatosis (6) Prostate cancer: Comment: 2013 90 g prostate - Bx 202122 Grade Group 1 - Prolaris group Code(s): C61 - Malignant neoplasm of prostate (7) Pain in right forearm: Code(s): M79.631 - Pain in right forearm (8) Skin cyst: Code(s): L72.9 - Follicular cyst of the skin and subcutaneous tissue, unspecified Plan Patient is 67-year-old gentleman this is his regular follow-up appointment Hypertension: Blood pressure is well controlled patient is monitoring it at home as well, he is taking atenolol 25 mg, and losartan hydrochlorothiazide 100- 25 mg Patient is tolerating medication no side effects He is complaining of discomfort right forearm, on examination it seems as if he has drained forearm muscles. I would recommend to take it easy for few days do not lift anything heavy. Patient says that since he has not been working for the past few days he is feeling little better. He also have all small lump right forehead which seems to be a small cyst. If it gets bigger then we can have it removed. Patient will get back to me. Patient is taking lovastatin 20 mg for lipid control Continue levothyroxine 175 mcg Patient is also seeing Dr. Lira for prostate management And Dr. Hernandez for high ferritin level, and hemochromatosis BMI is 39.5 patient is trying to lose weight Labs are due now and then again in 6 months order placed Follow-up 6 months Orders: Orders 2 Complete Blood Count Auto Diff Today E03.8 - Other specified hypothyroidism, E78.9 - Disorder of lipoprotein metabolism, unspecified, E83.119 - Hemochromatosis, unspecified, I10 - Essential (primary) hypertension Comprehensive Met. Panel Today E03.8 - Other specified hypothyroidism, E78.9 - Disorder of lipoprotein metabolism, unspecified, E83.119 - Hemochromatosis, unspecified, I10 - Essential (primary) hypertension LDL Cholesterol Direct Today E03.8 - Other specified hypothyroidism, E78.9 - Disorder of lipoprotein metabolism, unspecified, E83.119 - Hemochromatosis, unspecified, I10 - Essential (primary) hypertension TSH reflex Free T4 Today E03.8 - Other specified hypothyroidism, E78.9 - Disorder of lipoprotein metabolism, unspecified, E83.119 - Hemochromatosis, unspecified, I10 - Essential (primary) hypertension Ferritin Today E03.8 - Other specified hypothyroidism, E78.9 - Disorder of lipoprotein metabolism, unspecified, E83.119 - Hemochromatosis, unspecified, I10 - Essential (primary) hypertension Complete Blood Count Auto Diff 6 Months C61 - Malignant neoplasm of prostate, E03.8 - Other specified hypothyroidism, E66.01 - Morbid (severe) obesity due to excess calories, E78.9 - Disorder of lipoprotein metabolism, unspecified, E83.119 - Hemochromatosis, unspecified, I10 - Essential (primary) hypertension LDL Cholesterol Direct 6 Months C61 - Malignant neoplasm of prostate, E03.8 - Other specified hypothyroidism, E66.01 - Morbid (severe) obesity due to excess calories, E78.9 - Disorder of lipoprotein metabolism, unspecified, E83.119 - Hemochromatosis, unspecified, I10 - Essential (primary) hypertension TSH reflex Free T4 6 Months C61 - Malignant neoplasm of prostate, E03.8 - Other specified hypothyroidism, E66.01 - Morbid (severe) obesity due to excess calories, E78.9 - Disorder of lipoprotein metabolism, unspecified, E83.119 - Hemochromatosis, unspecified, I10 - Essential (primary) hypertension Ferritin 6 Months C61 - Malignant neoplasm of prostate, E03.8 - Other specified hypothyroidism, E66.01 - Morbid (severe) obesity due to excess calories, E78.9 - Disorder of lipoprotein metabolism, unspecified, E83.119 - Hemochromatosis, unspecified, I10 - Essential (primary) hypertension Prostate Specific Antigen Today C61 - Malignant neoplasm of prostate, E03.8 - Other specified hypothyroidism, E66.01 - Morbid (severe) obesity due to excess calories, E78.9 - Disorder of lipoprotein metabolism, unspecified, E83.119 - Hemochromatosis, unspecified, I10 - Essential (primary) hypertension Comprehensive Met. Panel 6 Months C61 - Malignant neoplasm of prostate, E03.8 - Other specified hypothyroidism, E66.01 - Morbid (severe) obesity due to excess calories, E78.9 - Disorder of lipoprotein metabolism, unspecified, E83.119 - Hemochromatosis, unspecified, I10 - Essential (primary) hypertension Coding Level of Care Code Est Pt Level 4 (73108) Diagnoses Other specified hypothyroidism E03.8 Lipid disorder E78.9 Hypertension, essential I10 Morbid obesity due to excess calories E66.01 Other hemochromatosis E83.118 Hemochromatosis type: other hemochromatosis Prostate cancer C61 Pain in right forearm M79.631 Skin cyst L72.9 Additional Codes SYLVIA-7 Assessment Billing - SYLVIA-7 Assessment Tool: SYLVIA-7 Assessment 56481 ([id number])
== END 2023-04-11 17:49 | disposition home or self-care (01) ==
PROVIDERS: PCP Internal Medicine; Visit Provider Internal Medicine
DX: I10 Essential (primary) hypertension (principal); C61 Malignant neoplasm of prostate; E66.01 Morbid (severe) obesity due to excess calories; Z68.39 Body mass index [BMI] 39.0-39.9, adult; E03.8 Other specified hypothyroidism; E78.9 Disorder of lipoprotein metabolism, unspecified; E83.118 Other hemochromatosis; M79.631 Pain in right forearm; L72.9 Follicular cyst of the skin and subcutaneous tissue, unspecified
CPT/HCPCS: 99214

== ENCOUNTER 2023-04-19 10:56 | Outpatient (REF) | payer OTHER, SELFPAY ==
[2023-04-19 13:21] LABS: MANUAL DIFF FLAG NO
[2023-04-19 13:28] LABS: Basophils Absolute Auto 0.1 X10*3/uL (0.0-0.2); Basophils Percent Auto 0.6 % (0-2); Eosinophils Absolute Auto 0.1 X10*3/uL (0.0-0.4); Eosinophils Percent Auto 1.2 % (0-4); Hematocrit 43.3 % (42.0-52.0); Hemoglobin 14.3 g/dl (14.0-18.0); Imm Gran Abs Auto 0.04 X10*3/uL (0.00-0.03); Imm Gran Pct Auto 0.3 % (0.0-0.4); Lymphocytes Percent Auto 17.5 % (20-40); Mean Corpuscular Hemoglobin 28.1 pg (27.0-33.0); Mean Corpuscular Volume 85.2 fL (80.0-98.0); Mean Platelet Volume 11.9 fL (9.4-12.4); Monocytes Absolute Auto 1.1 X10*3/uL (0.1-1.2); Monocytes Percent Auto 9.6 % (2-11); Neutrophils Absolute Auto 8.2 x10*3/uL (2.0-8.3); Neutrophils Percent Auto 70.8 % (45-73); Platelet Count 285 X10*3/uL (160-400); Red Blood Count 5.08 X10*6/uL (4.60-5.80); Red Cell Distribution Width 13.5 % (11.0-16.0); White Blood Count 11.6 X10*3/uL (4.8-10.8)
[2023-04-19 13:52] LABS: Alanine Aminotransferase 23 U/L (0-40); Alkaline Phosphatase 80 U/L (39-117); Anion Gap 11 (12-20); Aspartate Amino Transferase 20 U/L (5-37); Bilirubin Total 2.4 mg/dL (0.0-1.0); Blood Urea Nitrogen 15 mg/dL (9-16); Calcium 9.8 mg/dL (8.4-10.2); Carbon Dioxide 28 mmol/L (22-29); Chloride 104 mmol/L (96-108); Estimated Glomerular Filt Rate > 60; Glucose Random 89 mg/dL (60-115); Potassium 3.4 mmol/L (3.3-5.1); Sodium 140 mmol/L (135-145); Total Protein 7.9 g/dL (6.5-8.0)
[2023-04-19 13:59] LABS: Prostate Specific Antigen 3.04 ng/mL (<0.05-4.0)
[2023-04-19 14:09] LABS: Ferritin 455 ng/mL (20-250)
[2023-04-21 13:04] LABS: LDL Cholesterol Direct 84 mg/dL (<100)
== END 2023-04-19 10:57 | disposition home or self-care (01) ==
LOC: HO.HMGCLDS 10:56
PROVIDERS: PCP Internal Medicine; Visit Provider Internal Medicine
DX: Z12.5 Encounter for screening for malignant neoplasm of prostate (principal); E03.8 Other specified hypothyroidism; E78.9 Disorder of lipoprotein metabolism, unspecified; E83.119 Hemochromatosis, unspecified; E66.01 Morbid (severe) obesity due to excess calories; C61 Malignant neoplasm of prostate; I10 Essential (primary) hypertension
CPT/HCPCS: 36415; 80053; 82728; 83721; 84153; 84443; 85025

== ENCOUNTER 2023-05-22 06:53 | Outpatient (REF) | payer OTHER, SELFPAY ==
[2023-05-22 12:54] LABS: PSA,Total (Free>4and<10) 2.72 ng/mL (0.00-4.00)
== END 2023-05-22 06:54 | disposition home or self-care (01) ==
LOC: HO.HMGCLDS 06:53
PROVIDERS: PCP Internal Medicine; Visit Provider Urology
DX: Z12.5 Encounter for screening for malignant neoplasm of prostate (principal); C61 Malignant neoplasm of prostate
CPT/HCPCS: 36415; 84153

== ENCOUNTER 2023-05-29 15:18 | Outpatient (AMB) | payer OTHER, SELFPAY ==
--- NOTE | 2023-05-29 15:24 | A.OFFVIS_ITS ---
Intake Intake Visit Reasons: 6M PSA(set) Intake Note: Patient is Present for Follow Up PSA Urology Medication: Finasteride, Tamsulosin Antibiotic Allergies:None Blood Thinners: None Allergies No Known Allergies [No Known Allergies*] Allergy (Verified 05/29/23 15:28) Medication List - Last Reconciled 05/29/23 by Paco Lira MD atenolol 25 mg PO DAILY 90 days cholecalciferol (vitamin D3) 25 mcg PO DAILY cyclobenzaprine 5 mg PO BEDTIME 30 days finasteride 5 mg PO DAILY 90 days levothyroxine 175 mcg PO QAM losartan-hydrochlorothiazide 100-25 mg 1 tab PO DAILY 30 days lovastatin 20 mg PO DAILY tamsulosin 0.4 mg PO DAILY 90 days HPI HPI Comments History of Present Illness Details Alonso is a pleasant male. He is a patient of Dr. Aparicio. He is seen for the following urologic conditions - prostate cancer - BPH PSA remains stable Remains on finasteride and tamsulosin for lower urinary tract symptoms Post void dribbling resolved with exercises Continue 6m f/u Prostate cancer 2013, repeat biopsy 202122 grade group 1 Initial diagnosis a number of years ago he is unsure of the [place] score PSA at time of diagnosis in the 8 range Elected for active surveillance - previously has considered cryotherapy PSA - 01/01 6.9 18%, 03/03 4.35 16%, 08/02 2.5 , 10/02 28, 12/02 4.8, 02/02 3.9, 06/05 3.3, 12/03 2.6, 06/06 2.7 Imaging - 02/01 MRI 90 g prostate, posterior righ t paramedian 1.1 cm PI-RADS 4 lesion apex-mid Repeat biopsy 10/02 - 06/25 cores positive Gl 3+3 - 5%, 30% RML, RBM 60 g on ultrasound pT1c Prolaris genetic evaluation - active surveillance group - DSM 2.1 Lower urinary tract symptoms Ongoing weakness of stream Good response to tamsulosin and finasteride Minimal side effects PFSH Medical History Elevated PSA Urge incontinence Surgical History Hx of tonsillectomy Family History Brother Diabetes Maternal Grandmother Asthma Father Heart disease Mother Varicose veins of both lower extremities with pain Other Hypertension Social History Household Members: Family Housing: Apartment Are you a primary zoo caretaker to a significant other at home: No Do you presently have visiting nurse or other home services: No Alcohol intake: current Alcohol intake frequency: holidays/special occasions only Patient Tobacco Use Status: Former Tobacco user e-Cigarette/Vaping Use: Never Used Second Hand Smoke Exposure: Yes service: No Current occupational status: employed Current occupational exposures/hazards: No Cognitive needs: No Hearing needs: No Vision needs: Yes (wears glasses) Review of Systems Const Denies chills and Denies fever(s) Card Reports no additional complaints and Denies syncope Resp Denies cough GI Denies abdominal pain and Denies heartburn Reports as per HPI and Denies change in libido Neuro Denies syncope Psych Denies change in libido Endo Denies change in libido Physical Exam Const General: cooperative, healthy appearing, comfortable and no acute distress Orientation/consciousness: patient oriented x3 HEENT Face and sinus: Yes normal facial exam Mouth: moist mucous membranes Neck Neck: Yes normal visual inspection, Yes full ROM and Yes trachea midline Chest Chest palpation & inspection: normal inspection of the chest Resp Effort & Inspection: normal respiratory effort, able to speak in complete sentences and no respiratory distress GI Inspection: Yes normal to inspection Back/Spine/Pelvis Cervical Spine: normal cervical lordosis Thoracic/Lumbar Spine: thoracic and lumbar spine normal to inspection Skin General skin exam: no rashes or lesions noted Neuro General: patient oriented x3, gait normal, tone normal and moves all extremities Extrem General: Yes normal to inspection and Yes capillary refill normal Assessment & Plan Assessment & Plan (1) BPH w urinary obs/LUTS: Code(s): N40.1 - Benign prostatic hyperplasia with lower urinary tract symptoms; N13.8 - Other obstructive and reflux uropathy (2) Prostate cancer: Comment: 2013 90 g prostate - Bx 202122 Grade Group 1 - Prolaris group Code(s): C61 - Malignant neoplasm of prostate Plan Six-month follow-up PSA Orders: Orders Prostate Specific Antigen 6 Months C61 - Malignant neoplasm of prostate Patient Instructions: Imaging studies, laboratory and physical exam results were discussed and reviewed in detail. No major barriers to patient understanding were identified. An opportunity to ask questions regarding the treatment plan was provided. All questions were answered. The patient expressed understanding and agreement with the above treatment plan. The patient is aware they should contact our office by phone for worsening of their current condition or the appearance of new urologic symptoms. Compliance is encouraged with any medications and followup testing that is ordered. It is a privilege to participate in the urologic care of your patient. If you have any questions or concerns regarding treatment for the above conditions, or other urologic issues, please do not hesitate to contact me. The office telephone contact is [phone]. This note is constructed using voice recognition software. While every effort has been made to ensure accuracy marketing manager health communications errors may have been included. Yours sincerely, Dr Paco Lira MD, [facility] - Urology Providers of Expert, Compassionate Care for the Genitourinary System Coding Level of Care Code Est Pt Level 4 (80410) Diagnoses BPH w urinary obs/LUTS N40.1; N13.8 Prostate cancer C61
== END 2023-05-29 15:55 | disposition home or self-care (01) ==
PROVIDERS: PCP Internal Medicine; Visit Provider Urology
DX: N40.1 Benign prostatic hyperplasia with lower urinary tract symptoms (principal); N13.8 Other obstructive and reflux uropathy; C61 Malignant neoplasm of prostate
CPT/HCPCS: 99213

== ENCOUNTER → 2023-05-29 15:18 | Outpatient (BNVA) | payer OTHER, SELFPAY | PROVIDERS: PCP Internal Medicine; Visit Provider Urology ==

== ENCOUNTER 2023-07-04 08:15 | Outpatient (AMB) | payer OTHER, SELFPAY ==
--- OUTSIDE RECORDS SUMMARY | 2023-07-04 08:18 | XMS_ITS | Continuity of Care Document ---
Author Name Unknown Organization [facility] ter Address [address] [place] [id number]- Care Team Providers Care Copy And Print Associate Name Role Phone Markus ESQUIVEL, Asma Primary Care Physician [phone] Encounter [facility] Date(s): 02/22/21 - 02/22/[address] [address]- Discharge Disposition: A-D/C Home Attending Physician: Danni Rothman MD Admitting Physician: Danni Rothman MD Referring Physician: Danni Rothman MD Allergies, Adverse Reactions, Alerts No Known Medication Allergies Medications enalapril-hydrochlorothiazide 10 mg-25 mg oral tablet 1 tablet, By Mouth, Daily, # 30 tablet, 0 Refills, Maintenance, 02/15/21 11:18:00 EDT, Tablet, Partial fill upon patient request if the prescription is for a schedule II opioid drug. Start Date: 02/15/21 Status: Ordered finasteride 5 mg oral tablet 1 tablet = 5 mg, By Mouth, Daily, # 30 tablet, 0 Refills, Maintenance, 02/15/21 11:19:00 EDT, Tablet, Partial fill upon patient request if the prescription is for a schedule II opioid drug. Start Date: 02/15/21 Status: Ordered levothyroxine 0.15 mg oral tablet 1 tablet, By Mouth, Daily in AM, 0 Refills, Maintenance, 02/15/21 11:16:00 EDT, Partial fill upon patient request if the prescription is for a schedule II opioid drug. Start Date: 02/15/21 Status: Ordered Lovastatin = 20 mg, By Mouth, Daily at supper, 0 Refills, Maintenance, 06/06/16 12:46:00 EST Start Date: 06/06/16 Status: Ordered tamsulosin 0.4 mg oral capsule 0.4 mg, 1, capsule, By Mouth, Daily at bedtime, # 30 capsule, Refills 0, Maintenance, 02/15/21 11:19:00 EDT, Partial fill upon patient request if the prescription is for a schedule II opioid drug. Start Date: 02/15/21 Status: Ordered Vital Signs Most recent to oldest [Reference Range]: 1 2 3 Height 172.7 cm (02/22/21 6:55 AM) 172.7 cm (02/15/21 11:43 AM) Weight 123.7 kg (02/22/21 6:55 AM) 122.7 kg (02/15/21 11:43 AM) Oxygen Saturation [94-100 %] 97 % (02/22/21 3:00 PM) 97 % (02/22/21 2:45 PM) 94 % (02/22/21 2:30 PM) Pulse Rate [55-90 bpm] 100 bpm *H* (02/22/21 6:55 AM) Body Mass Index [18.5-24.99] 41.47 *>HHI* (02/22/21 6:55 AM) 41.14 *>HHI* (02/15/21 11:43 AM) Blood Pressure [90-138/55-84 mm Hg] 139/77mm Hg *H* (02/22/21 3:00 PM) 141/76mm Hg *H* (02/22/21 2:45 PM) 145/79mm Hg *H* (02/22/21 2:30 PM) Respiratory Rate [16-30 br/min] 11 br/min *L* (02/22/21 3:00 PM) 11 br/min *L* (02/22/21 2:45 PM) 14 br/min *L* (02/22/21 2:30 PM) Temperature [96.8-100.4 DegF] 98.4 DegF (02/22/21 2:30 PM) 97.3 DegF (02/22/21 1:30 PM) 98.4 DegF (02/22/21 6:55 AM) Liters per Minute 2 L/min (02/22/21 2:00 PM) 2 L/min (02/22/21 1:45 PM) 2 L/min (02/22/21 1:30 PM) Mode of Delivery (Oxygen) Room air (02/22/21 2:30 PM) Room air (02/22/21 2:15 PM) Simple face mask (02/22/21 2:00 PM) Blood pressure sites Arm, right (02/22/21 3:00 PM) Arm, right (02/22/21 2:45 PM) Arm, right (02/22/21 2:30 PM) Temperature Route Temporal (02/22/21 2:30 PM) Temporal (02/22/21 1:30 PM) Temporal (02/22/21 6:55 AM) Dry Weight 123.7 kg (02/22/21 6:55 AM) 122.7 kg (02/15/21 11:43 AM) Weight Obtained Via Standing scale (02/22/21 6:55 AM) Patient/family stated (02/15/21 11:43 AM) Dry Weight Obtained Via Standing scale (02/22/21 6:55 AM) Patient/family stated (02/15/21 11:43 AM) Social History Social History Type Response Smoking Status Never smoker entered on: 06/06/16 Sex
--- OUTSIDE RECORDS SUMMARY | 2023-07-04 08:18 | XMS_ITS | Patient Health Record ---
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 Name Role Phone Markus ESQUIVEL, [facility] Primary Care Provider Jerry Rivera Jr Unavailable Michele Hernandez Unavailable Unavailable ALLERGIES No Known Allergies RESULTS Component Value Reference Range Notes Leukocytes Stool Qualitative Reviewed date:08/24/2022 09:55:21 AM Interpretation: Performing Lab:[facility], [address] [place] [phone] Notes/Report: Leukocytes Stool Qualitative NEGATIVE NEGATIVE Ova and Parasite Reviewed date:08/31/2022 12:45:40 PM Interpretation: Performing Lab:[facility], [address] [place] [phone] Notes/Report: Ova and Parasite SEE NOTE OVA AND PARASITES, CONC AND PERM SMEAR Micro Number: [id number] Test Status: Final Specimen Source: Stool Specimen Quality: Adequate CONCENTRATION 1: No ova or parasites seen TRICHROME 1: No ova or parasites seen Routine Ova and Parasite exam may not detect some parasites that occasionally cause diarrheal illness. Cryptosporidium Antigen and/or Cyclospora and Isospora Exam may be ordered to detect these parasites. One negative sample does not necessarily rule out the presence of a parasitic infection. For additional information, please refer to https://education.[employer]/faq/SAM053 (This link is being provided for informational/ educational purposes only.) THIS TEST WAS PERFORMED AT: [facility] [address] [place] [phone] ALICIA CAMARILLO MD GI PANEL Reviewed date:08/24/2022 09:53:28 AM Interpretation: Performing Lab:[facility], [address] [place] [phone] Notes/Report: Campylobacter Not Detected Not Detect. Plesiomonas shigelloides Not Detected Not Detect. Salmonella Not Detected Not Detect. Vibrio Not Detected Not Detect. Vibrio Cholerae Not Detected Not Detect. Yersinia enterocolitica Not Detected Not Detect. E. coli EAEC Not Detected Not Detect. E. coli EPEC Not Detected Not Detect. E. coli ETEC Not Detected Not Detect. E. coli STEC Not Detected Not Detect. E. coli O157 Not applicable Not Detect. E. coli containing the O157 antigen are a subset of Shiga-like toxin-producing E. coli (STEC). Shigella sp./EIEC Not Detected Not Detect. Cryptosporidium Not Detected Not Detect. Cyclospora cayetanensis Not Detected Not Detect. Entamoeba histolytica Not Detected Not Detect. Giardia lamblia Not Detected Not Detect. Adenovirus F 40/41 Not Detected Not Detect. Astrovirus Not Detected Not Detect. Norovirus GI/GII Not Detected Not Detect. Rotavirus A Not Detected Not Detect. Sapovirus Not Detected Not Detect. All results must be correlated with clinical findings. Negative results do not exclude the possibility of gastrointestinal infection and should not be used as the sole basis for diagnosis, treatment, or other management decisions. Virus, bacteria, and parasite nucleic acid may persist in vivo independently of organism viability. Additionally, some organisms may be carried symptomatically. Detection of organism targets does not imply that the corresponding organisms are infectious or are the causative agents for clinical symptoms. There is a risk of false negative values due to the presence of sequence variants in the gene targets of the assay, amplification inhibitors in specimens, or inadequate numbers of organisms for amplification. The identification of several diarrheagenic E. coli pathotypes has historically relied upon phenotypic characteristics. This panel targets genetic determinants characteristic of most pathogenic strains, but may not detect all strains having phenotypic characteristics of a pathotype. The performance of this test has not been established for monitoring treatment of infection with any of the panel organisms. This assay is performed by Multiplexed PCR, utilizing the [employer]. REASON FOR REFERRAL No Information MEDICATIONS Medication SIG (Take, Route, Frequency, Duration) Notes Start Date End Date Status Losartan Potassium-HCTZ 100-25 MG Oral for 90 Active Tamsulosin HCl 0.4 MG Oral for 90 Active Atenolol 25 MG Oral for 30 Act nayla Vitamin D (Cholecalciferol) 25 MCG (1000 UT) 1 capsule Orally Once a day for 30 day(s) 08/09/2022 Active Finasteride 5 MG Oral for 90 A ctive Levothyroxine Sodium 175 MCG Oral for 90 Active Lovastatin 20 MG Oral for 90 A ctive IMMUNIZATIONS Vaccine Route Administration Date Status Comme nts Influenza Unknown 02/21/2022 Administered SOCIAL HISTORY Tobacco Use: Social History Observation Description Date Details (start date - stop date) Never Smoker NA - NA Sex Assigned At : Social History Observation Description Sex Assigned At Unknown Tobacco Use/Smoking Question Answer Notes Patient is a nonsmoker Alcohol Screen Question Answer Notes Did you have a drink containing alcohol in the p ast year? No Points 0 Interpretation Negative PROBLEMS Problem Type ICD Code Onset Dates Problem Status W/U Status Risk SNOMED Code Notes Problem Change in bowel function (R19.8) Active confirmed [id number] VITAL SIGNS Temperature 97.3 degrees Fahrenheit 08/09/2022 Blood pressure diastolic 00 mm Hg 08/09/2022 Height 68 in 08/09/2022 Blood pressure systolic 000 mm Hg 08/09/2022 Weight 268 lbs 08/09/2022 BMI 40.74 kg/m2 08/09/2022 Encounters Encounter Location Date Provider Diagnosis [facility] [address] [place] [phone] 08/09/2022 Jerry Leong Jr Change in bowel function R19.8 [facility] [address] [place] [phone] 08/31/2022 Jerry Leong Jr ASSESSMENTS Encounter Date Diagnosis Assessment Notes Treatment Notes Treatment Clinical Notes 08/09/2022 Change in bowel function (ICD-10 - R19.8) Diarrhea - what to ask your health care provider - adult material was printed PLAN OF TREATMENT Pending Test Test Name Order Date STOOL WBC 08/09/2022 OVA & PARASITES (O&P) 08/09/2022 GI PANEL 08/09/2022 Insurance Providers Payer Name Payer Address Payer Phone Subscriber Number Group Number Insured Name Patient Relationship to Insured Coverage Start Date Coverage End Date [employer] PPO [address] [place] [phone] [id number] GIOVANNA HENRY Self - patient is the insured MEDICAL (GENERAL) HISTORY Medical History History ICD Code prostate cancer high blood pressure hypothyroidsim high cholesterol Hemachromatosis Surgical History Surgery Date(Month/Year) 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
[2023-07-04 08:32] VITALS: BP 120/70; PULSE 79; TEMP 36.1; O2SAT 96; BMI 39.8
--- NOTE | 2023-07-04 08:32 | MHC.OFFWIV ---
Intake Vital Signs 07/04/23 08:32 Height 5 ft 8 in Weight 262 lb BMI 39.8 BP 120/70 Blood Pressure Location Lt brachial Position Sitting Pulse 79 Pulse Source Pulse Oximeter Temp 97.0 F Temp Source Temporal Artery Scan Pulse Oximetry (%) 96 Oxygen Delivery Method Room Air Intake Visit Reasons: EP Cough, congestion (masked) Intake Note: pt is here today for cough congestion started 2 weeks ago Patient Tobacco Use Status: Former Tobacco user Allergies No Known Allergies [No Known Allergies*] Allergy (Verified 07/04/23 08:33) Do you need a note to return to daycare/school/sports/work: No HPI HPI Comments History of Present Illness Details 67 y/o male patient who presents to walk in clinic with c/o cough and chest congestion x 2 weeks. Denies fevers, chills, nausea or vomiting. Denies any recent sick contacts. He has been using OTC home remedies with some relief. [facility] Medical History Elevated PSA Urge incontinence Surgical History Hx of tonsillectomy Family History Brother Diabetes Maternal Grandmother Asthma Father Heart disease Mother Varicose veins of both lower extremities with pain Other Hypertension Social History Household Members: Family Housing: Apartment Are you a primary career and technology education teacher to a significant other at home: No Do you presently have visiting nurse or other home services: No Alcohol intake: current Alcohol intake frequency: holidays/special occasions only Patient Tobacco Use Status: Former Tobacco user e-Cigarette/Vaping Use: Never Used Second Hand Smoke Exposure: Yes service: No Current occupational status: employed Current occupational exposures/hazards: No Cognitive needs: No Hearing needs: No Vision needs: Yes (wears glasses) Review of Systems Const All systems reviewed & are unremarkable except as noted in HPI and below Physical Exam Vital Signs: Last Vital Signs Temp 97.0 F 07/04/23 08:32 Pulse 79 07/04/23 08:32 BP 120/70 07/04/23 08:32 Pulse Ox 96 07/04/23 08:32 Oxygen Delivery Method Room Air 07/04/23 08:32 BMI result Body Mass Index 39.8 Const General: comfortable Nutritional Appearance: obese HEENT Head: Yes normocephalic Ears: external ears normal and TM's normal bilaterally General nose exam: Normal nasal mucous membranes and turbinates present Face and sinus: Yes sinuses nontender Mouth: moist mucous membranes Throat: Yes posterior oropharynx normal Resp Effort & Inspection: normal respiratory effort and able to speak in complete sentences Auscultation: clear to auscultation bilaterally, no crackles, no rales, no rhonchi and no wheezes Cardio Rate: regular rate Rhythm: regular rhythm Assessment & Plan Assessment & Plan (1) Upper respiratory infection: Code(s): J06.9 - Acute upper respiratory infection, unspecified Qualifiers: URI type: unspecified viral URI Qualified Code(s): J06.9 - Acute upper respiratory infection, unspecified Plan: - Warm fluids with honey - Rest - Acetaminophen for pain relief - OTC cough/cold remedies. (2) Cough in adult: Code(s): R05.9 - Cough, unspecified Plan: - Warm fluids with honey - Rest - Acetaminophen for pain relief - OTC cough/cold remedies. Medications: New azithromycin 500 mg PO DAILY 3 days 3 tabs 0RF J06.9 - Acute upper respiratory infection, unspecified, R05.9 - Cough, unspecified benzonatate 100 mg PO TID 30 caps 0RF R05.9 - Cough, unspecified Coding Level of Care Code Est Pt Level 3 (69085) Diagnoses Viral upper respiratory tract infection J06.9 URI type: unspecified viral URI Cough in adult R05.9 Time Spent (min) 15
== END 2023-07-04 09:14 | disposition home or self-care (01) ==
PROVIDERS: PCP Internal Medicine; Visit Provider Nurse Practitioner Family
DX: J06.9 Acute upper respiratory infection, unspecified (principal); R05.9 Cough, unspecified
CPT/HCPCS: 99213

== ENCOUNTER 2023-09-17 06:12 | Outpatient (REF) | payer OTHER, SELFPAY ==
[2023-09-17 10:32] LABS: MANUAL DIFF FLAG NO
[2023-09-17 10:44] LABS: Basophils Absolute Auto 0.1 X10*3/uL (0.0-0.2); Eosinophils Absolute Auto 0.1 X10*3/uL (0.0-0.4); Eosinophils Percent Auto 1.9 % (0-4); Hematocrit 44.4 % (42.0-52.0); Hemoglobin 14.7 g/dl (14.0-18.0); Imm Gran Abs Auto 0.03 X10*3/uL (0.00-0.03); Imm Gran Pct Auto 0.4 % (0.0-0.4); Lymphocytes Absolute Auto 2.3 X10*3/uL (1.2-4.9); Lymphocytes Percent Auto 31.5 % (20-40); Mean Corpuscular HGB Conc 33.1 g/dl (31.0-36.0); Mean Corpuscular Hemoglobin 28.7 pg (27.0-33.0); Mean Corpuscular Volume 86.5 fL (80.0-98.0); Mean Platelet Volume 11.5 fL (9.4-12.4); Monocytes Absolute Auto 0.4 X10*3/uL (0.1-1.2); Monocytes Percent Auto 4.9 % (2-11); Neutrophils Absolute Auto 4.4 x10*3/uL (2.0-8.3); Neutrophils Percent Auto 60.3 % (45-73); Platelet Count 271 X10*3/uL (160-400); Red Blood Count 5.13 X10*6/uL (4.60-5.80); Red Cell Distribution Width 13.7 % (11.0-16.0); White Blood Count 7.3 X10*3/uL (4.8-10.8)
[2023-09-17 11:03] LABS: Alanine Aminotransferase 48 U/L (0-40); Alkaline Phosphatase 76 U/L (39-117); Anion Gap 16 (12-20); Aspartate Amino Transferase 46 U/L (5-37); Bilirubin Total 1.3 mg/dL (0.0-1.0); Blood Urea Nitrogen 19 mg/dL (9-16); Calcium 9.9 mg/dL (8.4-10.2); Carbon Dioxide 25 mmol/L (22-29); Chloride 103 mmol/L (96-108); Estimated Glomerular Filt Rate > 60; Glucose Random 154 mg/dL (60-115); Sodium 140 mmol/L (135-145)
[2023-09-17 11:22] LABS: Ferritin 538 ng/mL (20-250); TSH reflex Free T4 0.54 uIU/mL (0.32-4.0)
[2023-09-18 09:48] LABS: LDL Cholesterol Direct 80 mg/dL (<100)
== END 2023-09-17 06:13 | disposition home or self-care (01) ==
LOC: HO.HMGCLDS 06:12
PROVIDERS: PCP Internal Medicine; Visit Provider Internal Medicine
DX: E66.01 Morbid (severe) obesity due to excess calories (principal); I10 Essential (primary) hypertension; E03.8 Other specified hypothyroidism; E78.9 Disorder of lipoprotein metabolism, unspecified; E83.119 Hemochromatosis, unspecified; C61 Malignant neoplasm of prostate
CPT/HCPCS: 36415; 80053; 82728; 83721; 84443; 85025

== ENCOUNTER 2023-09-21 15:01 | Outpatient (AMB) | payer OTHER, SELFPAY ==
--- NOTE | 2023-09-21 15:05 | MHC.PC.OV ---
Vital Signs 09/21/23 15:07 Height 5 ft 8 in Weight 265 lb BMI 40.3 BP 124/68 Blood Pressure Location Rt brachial Position Sitting Pulse 72 Pulse Source Pulse Oximeter Pulse Oximetry (%) 98 Oxygen Delivery Method Room Air Intake Visit Reasons: 6 Month F/U Allergies No Known Allergies [No Known Allergies*] Allergy (Verified 09/21/23 15:08) Medication List - Last Reconciled 09/21/23 by Bryan Aparicio MD atenolol 25 mg PO DAILY 90 days cholecalciferol (vitamin D3) 25 mcg PO DAILY cyclobenzaprine 5 mg PO BEDTIME 30 days finasteride 5 mg PO DAILY 90 days levothyroxine 175 mcg PO QAM losartan-hydrochlorothiazide 100-25 mg 1 tab PO DAILY 30 days lovastatin 20 mg PO DAILY tamsulosin 0.4 mg PO DAILY 90 days Tobacco use date assessed: 09/21/23 Fall risk assessment: No Falls in past year Last assessed Fall Risk: 09/21/23 Dental Screening Dental Screen Date: 09/21/23 Did you have a dental visit in the last 12 months?: Yes Did you have a dental problem in the last 6 months where you did not have access to dental care?: No Was dental information given to patient?: Patient has dentist HPI 6 Month F/U HPI Details Patient is 67-year-old gentleman this is his regular follow-up appointment Hypertension: Blood pressure is well controlled , he is taking atenolol 25 mg, and losartan hydrochlorothiazide 100-25 mg Patient is tolerating medication no side effects Patient is taking lovastatin 20 mg for lipid control Continue levothyroxine 175 mcg TSH is within normal limit Patient is also seeing Dr. Lira for prostate management And Dr. Hernandez for high ferritin level, and hemochromatosis BMI is 39.5 patient is trying to lose weight Labs done recently reviewed with the patient his LFTs are little bit high But total bilirubin has improved I placed order for LFT to be repeated again with his next set of labs Patient is having difficulty bending his left knee, it has been a chronic problem I do not have any x-rays for his knee, x-ray order placed Follow-up 6 months PFS Medical History Elevated PSA Urge incontinence Surgical History Hx of tonsillectomy Family History Brother Diabetes Maternal Grandmother Asthma Father Heart disease Mother Varicose veins of both lower extremities with pain Other Hypertension Social History Household Members: Family Housing: Apartment Are you a primary assurance services manager health care to a significant other at home: No Do you presently have visiting nurse or other home services: No Alcohol intake: current Alcohol intake frequency: holidays/special occasions only Patient Tobacco Use Status: Former Tobacco user e-Cigarette/Vaping Use: Never Used Second Hand Smoke Exposure: Yes service: No Current occupational status: employed Current occupational exposures/hazards: No Cognitive needs: No Hearing needs: No Vision needs: Yes (wears glasses) Questionnaire Thrive Questionnaire Date Thrive assessed: 12/06/22 AUDIT C Alcohol Use Questionnaire (AUDIT-C) 1. How often do you have a drink containing alcohol?: Never 3. How often do you have six or more drinks on one occasion?: Never Total Score: 0 Score Reviewed/Action Taken: Yes SYLVIA-7 AMB Questionnaire SYLVIA-7 Date SYLVIA - 7 assessed: 04/11/23 Source: Developed by Drs. Damaso Reyna, Carmen Myers, Samuel Cardoso and colleagues, with an educational concepcion from [employer]. Review of Systems Const Denies chills and Denies fever(s) ENT Denies epistaxis and Denies nasal discharge Card Denies chest pain Resp Denies chest congestion, Denies cough and Denies hemoptysis GI Denies diarrhea and Denies nausea Skin/Breast Denies rash Neuro Reports no additional complaints Psych Reports no additional complaints Endo Reports no additional complaints Physical exam (Primary Care) Vital Signs: Last Vital Signs Pulse 72 09/21/23 15:07 BP 124/68 09/21/23 15:07 Pulse Ox 98 09/21/23 15:07 Oxygen Delivery Method Room Air 09/21/23 15:07 BMI result Body Mass Index 40.3 Tobacco/Smoking Status: Tobacco use Status Tobacco use date assessed 09/21/23 09/21/23 15:09 Patient Tobacco Use Status Former Tobacco user 09/21/23 15:07 e-Cigarette/Vaping Use Never Used 09/21/23 15:07 Thrive Assessment: Date of Thrive Assessment Date Thrive assessed 12/06/22 09/21/23 15:07 Const General: cooperative, comfortable and no acute distress Orientation/consciousness: patient oriented x3 HENMT Head: Yes normocephalic Eyes General: appearance normal, both eyes and all related structures Neck Neck: Yes supple Resp Effort & Inspection: normal respiratory effort, no cough and no stridor Cardio Rhythm: regular rhythm Heart sounds: S1 normal heart sound present and S2 normal heart sound present Skin General skin exam: turgor normal Neuro General: patient oriented x3, tone normal and moves all extremities Extrem Other: Right lower extremity with minimal edema, left limited range of motion without swelling Assessment and Plan Assessment & Plan (1) Hypertension, essential: Code(s): I10 - Essential (primary) hypertension (2) Knee pain, left: Code(s): M25.562 - Pain in left knee Qualifiers: Chronicity: chronic Qualified Code(s): M25.562 - Pain in left knee; G89.29 - Other chronic pain (3) Other specified hypothyroidism: Code(s): E03.8 - Other specified hypothyroidism (4) Lipid disorder: Code(s): E78.9 - Disorder of lipoprotein metabolism, unspecified (5) Morbid obesity due to excess calories: Code(s): E66.01 - Morbid (severe) obesity due to excess calories (6) Hemochromatosis: Code(s): E83.119 - Hemochromatosis, unspecified Qualifiers: Hemochromatosis type: other hemochromatosis Qualified Code(s): E83.118 - Other hemochromatosis (7) Prostate cancer: Comment: 2013 g prostate - Bx [id number] Grade Group 1 - Prolaris group Code(s): C61 - Malignant neoplasm of prostate (8) LFT elevation: Code(s): R79.89 - Other specified abnormal findings of blood chemistry Plan Patient is 67-year-old gentleman this is his regular follow-up appointment Hypertension: Blood pressure is well controlled , he is taking atenolol 25 mg, and losartan hydrochlorothiazide 100-25 mg Patient is tolerating medication no side effects Patient is taking lovastatin 20 mg for lipid control Continue levothyroxine 175 mcg TSH is within normal limit Patient is also seeing Dr. Lira for prostate management And Dr. Hernandez for high ferritin level, and hemochromatosis BMI is 39.5 patient is trying to lose weight Labs done recently reviewed with the patient his LFTs are little bit high But total bilirubin has improved I placed order for LFT to be repeated again with his next set of labs Patient is having difficulty bending his left knee, it has been a chronic problem I do not have any x-rays for his knee, x-ray order placed Follow-up 6 months Orders: Orders Liver Panel Today R79.89 - Other specified abnormal findings of blood chemistry XR knee LT 2V Today M25.562 - Pain in left knee Coding Level of Care Code Est Pt Level 4 (12410) Complex EM visit Add On G2211 Diagnoses Hypertension, essential I10 Chronic pain of left knee M25.562; G89.29 Chronicity: chronic Other specified hypothyroidism E03.8 Lipid disorder E78.9 Morbid obesity due to excess calories E66.01 Other hemochromatosis E83.118 Hemochromatosis type: other hemochromatosis Prostate cancer C61 LFT elevation R79.89
[2023-09-21 15:07] VITALS: BP 124/68; PULSE 72; O2SAT 98; BMI 40.3
== END 2023-09-21 15:49 | disposition home or self-care (01) ==
PROVIDERS: PCP Internal Medicine; Visit Provider Internal Medicine
DX: I10 Essential (primary) hypertension (principal); E66.01 Morbid (severe) obesity due to excess calories; C61 Malignant neoplasm of prostate; Z68.41 Body mass index [BMI] 40.0-44.9, adult; M25.562 Pain in left knee; G89.29 Other chronic pain; E83.118 Other hemochromatosis; E03.8 Other specified hypothyroidism; E78.9 Disorder of lipoprotein metabolism, unspecified; R79.89 Other specified abnormal findings of blood chemistry
CPT/HCPCS: 99214; G2211

== ENCOUNTER 2023-09-21 15:25 | Outpatient (REF) | payer OTHER, SELFPAY ==
--- NOTE | ~2023-09-21 | XR_ITS ---
EXAMINATION: XR KNEE, LEFT CLINICAL INFORMATION: Pain in left knee. COMPARISON: None available. TECHNIQUE: Two views of the left knee. FINDINGS: The bones are diffusely demineralized. Trace joint effusion. Xtvr-co-pnxzlyqf degenerative changes with joint space narrowing and hypertrophic change in the medial and patellofemoral compartments. Vascular calcifications. XR/XR knee LT 2V IMPRESSION: Hktx-ca-ngfooeye degenerative changes.
== END 2023-09-21 15:26 | disposition home or self-care (01) ==
LOC: HO.HMGCX 15:25
PROVIDERS: PCP Internal Medicine; Visit Provider Internal Medicine
DX: M25.562 Pain in left knee (principal)
CPT/HCPCS: 73560

== ENCOUNTER 2023-09-27 08:34 | Outpatient (AMB) | payer OTHER, SELFPAY ==
--- OUTSIDE RECORDS SUMMARY | 2023-09-27 08:41 | XMS_ITS | Patient Health Record ---
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 Advertising Leasing Agent Name Role Phone Markus ESQUIVEL, [facility] Primary Care Provider Jerry Rivera Jr Unavailable Michele Hernandez Unavailable Unavailable ALLERGIES No Known Allergies REASON FOR REFERRAL No Information MEDICATIONS Medication [...] Change in bowel function (R19.8) Active confirmed [id number] PLAN OF TREATMENT Pending Test Test Name Order Date STOOL WBC 08/09/2022 OVA & PARASITES (O&P) 08/09/2022 GI PANEL 08/09/2022 Insurance Providers Payer Name Payer Address Payer Phone Subscriber Number Group Number Insured Name Patient Relationship to Insured Coverage Start Date Coverage End Date [facility] [address] [place] [phone] [id number] GIOVANNA HENRY Self - patient is the insured MEDICAL (GENERAL) HISTORY Medical History History ICD Code prostate cancer high blood pressure hypothyroidsim high cholesterol Hemachromatosis Surgical History Surgery Date(Month/Year) 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
--- NOTE | 2023-09-27 10:27 | MHC.PC.OV ---
Intake Visit Reasons: Discuss Xray~ [phone] Allergies No Known Allergies [No Known Allergies*] Allergy (Verified 09/21/23 15:08) Medication List - Last Reconciled 09/27/23 by Bryan Aparicio MD atenolol 25 mg PO DAILY 90 days cholecalciferol (vitamin D3) 25 mcg PO DAILY cyclobenzaprine 5 mg PO BEDTIME 30 days finasteride 5 mg PO DAILY 90 days levothyroxine 175 mcg PO QAM losartan-hydrochlorothiazide 100-25 mg 1 tab PO DAILY 30 days lovastatin 20 mg PO DAILY tamsulosin 0.4 mg PO DAILY 90 days Tobacco use date assessed: 09/21/23 Dental Screening Dental Screen Date: 09/21/23 HPI Discuss Xray~ [phone] HPI Details This is a TeleMedicine visit Pt was complaining of left knee pain last visit which has been happening for a while but now getting worse he has limited ROM as well along with some swelling x-ray of his knee was ordered Which showed moderate to severe osteoarthritis. Patient was notified x-ray report. We discussed treatment options, patient does not want to have any surgery done But he is open to cortisone injection and physical therapy I have placed a referral to [facility] as per patient's request. [facility] Medical History Elevated PSA Urge incontinence Surgical History Hx of tonsillectomy Family History Brother Diabetes Maternal Grandmother Asthma Father Heart disease Mother Varicose veins of both lower extremities with pain Other Hypertension Social History Household Members: Family Housing: Apartment Are you a primary hearing care practitioner to a significant other at home: No Do you presently have visiting nurse or other home services: No Alcohol intake: current Alcohol intake frequency: holidays/special occasions only Patient Tobacco Use Status: Former Tobacco user e-Cigarette/Vaping Use: Never Used Second Hand Smoke Exposure: Yes service: No Current occupational status: employed Current occupational exposures/hazards: No Cognitive needs: No Hearing needs: No Vision needs: Yes (wears glasses) Questionnaire Thrive Questionnaire Date Thrive assessed: 12/06/22 SYLVIA-7 AMB Questionnaire SYLVIA-7 Date SYLVIA - 7 assessed: 04/11/23 Source: Developed by Drs. Damaso Reyna, Carmen Myers, Samuel Cardoso and colleagues, with an educational concepcion from [employer]. Review of Systems Const Denies chills and Denies fever(s) ENT Denies epistaxis and Denies nasal discharge Card Denies chest pain Resp Denies chest congestion, Denies cough and Denies hemoptysis GI Denies diarrhea and Denies nausea Skin/Breast Denies rash Neuro Reports no additional complaints Psych Reports no additional complaints Endo Reports no additional complaints Physical exam (Primary Care) Tobacco/Smoking Status: Tobacco use Status Tobacco use date assessed 09/21/23 09/21/23 15:09 Patient Tobacco Use Status Former Tobacco user 09/21/23 15:07 e-Cigarette/Vaping Use Never Used 09/21/23 15:07 Thrive Assessment: Date of Thrive Assessment Date Thrive assessed 12/06/22 09/21/23 15:07 Telehealth Telehealth Telehealth Platform: [employer] Location of provider rendering services: practice address Location of patient: address on file Patient Identification confirmed using: Name, : Yes Telehealth method: voice only Patient verbally consented to treatment: Yes Patient verbally consented to billing insurance company: Yes Patient informed of any privacy concerns related to visit: Yes Minutes spent on Phone/Video with Pt.: 13 Assessment and Plan Assessment & Plan (1) Osteoarthritis of left knee: Code(s): M17.12 - Unilateral primary osteoarthritis, left knee Qualifiers: Osteoarthritis type: primary Qualified Code(s): M17.12 - Unilateral primary osteoarthritis, left knee (2) Knee pain, left: Code(s): M25.562 - Pain in left knee Qualifiers: Chronicity: chronic Qualified Code(s): M25.562 - Pain in left knee; G89.29 - Other chronic pain Plan This is a TeleMedicine visit Pt was complaining of left knee pain last visit which has been happening for a while but now getting worse he has limited ROM as well along with some swelling x-ray of his knee was ordered Which showed moderate to severe osteoarthritis. Patient was notified x-ray report. We discussed treatment options, patient does not want to have any surgery done But he is open to cortisone injection and physical therapy I have placed a referral to [facility] as per patient's request. Orders: Referrals Orthopedics Referral G89.29 - Other chronic pain, M17.12 - Unilateral primary osteoarthritis, left knee, M25.562 - Pain in left knee Coding Level of Care Code Tele Est Pt Level 3 (09333) Diagnoses Primary osteoarthritis of left knee M17.12 Osteoarthritis type: primary Chronic pain of left knee M25.562; G89.29 Chronicity: chronic
== END 2023-09-27 10:47 | disposition home or self-care (01) ==
LOC: HO.HMGC 08:34
PROVIDERS: PCP Internal Medicine; Visit Provider Internal Medicine
DX: M17.12 Unilateral primary osteoarthritis, left knee (principal); M25.562 Pain in left knee; G89.29 Other chronic pain
CPT/HCPCS: 99442

== ENCOUNTER 2023-10-22 06:22 | Outpatient (REF) | payer OTHER, SELFPAY ==
[2023-10-22 08:38] LABS: MANUAL DIFF FLAG NO
[2023-10-22 08:42] LABS: Basophils Absolute Auto 0.1 X10*3/uL (0.0-0.2); Basophils Percent Auto 0.9 % (0-2); Eosinophils Absolute Auto 0.2 X10*3/uL (0.0-0.4); Eosinophils Percent Auto 2.1 % (0-4); Hematocrit 43.7 % (42.0-52.0); Hemoglobin 14.6 g/dl (14.0-18.0); Imm Gran Abs Auto 0.04 X10*3/uL (0.00-0.03); Imm Gran Pct Auto 0.5 % (0.0-0.4); Lymphocytes Absolute Auto 1.9 X10*3/uL (1.2-4.9); Lymphocytes Percent Auto 25.1 % (20-40); Mean Corpuscular HGB Conc 33.4 g/dl (31.0-36.0); Mean Corpuscular Hemoglobin 29.2 pg (27.0-33.0); Mean Corpuscular Volume 87.4 fL (80.0-98.0); Mean Platelet Volume 11.5 fL (9.4-12.4); Monocytes Absolute Auto 0.4 X10*3/uL (0.1-1.2); Monocytes Percent Auto 5.5 % (2-11); Neutrophils Percent Auto 65.9 % (45-73); Platelet Count 267 X10*3/uL (160-400); White Blood Count 7.5 X10*3/uL (4.8-10.8)
[2023-10-22 08:52] LABS: Alanine Aminotransferase 33 U/L (0-40); Albumin Level 3.9 g/dL (3.5-5.0); Alkaline Phosphatase 75 U/L (39-117); Anion Gap 12 (12-20); Aspartate Amino Transferase 28 U/L (5-37); Bilirubin Direct 0.3 mg/dL (0.0-0.5); Bilirubin Total 1.1 mg/dL (0.0-1.0); Blood Urea Nitrogen 17 mg/dL (9-16); Calcium 9.8 mg/dL (8.4-10.2); Carbon Dioxide 27 mmol/L (22-29); Chloride 105 mmol/L (96-108); Estimated Glomerular Filt Rate > 60; Glucose Random 149 mg/dL (60-115); Iron 101 mcg/dL (45-160); Percent Iron Saturation 34 % (15-50); Potassium 3.7 mmol/L (3.3-5.1); Sodium 140 mmol/L (135-145); Total Iron Binding Capacity 294 mcg/dL (228-428); Total Protein 7.7 g/dL (6.5-8.0); Unsaturated Iron Binding 193 ug/dL
[2023-10-22 09:12] LABS: Ferritin 474 ng/mL (20-250)
== END 2023-10-22 06:23 | disposition home or self-care (01) ==
LOC: HO.HMGCLDS 06:22
PROVIDERS: PCP Internal Medicine; Visit Provider Internal Medicine Medical Oncology
DX: R79.89 Other specified abnormal findings of blood chemistry (principal); E83.119 Hemochromatosis, unspecified
CPT/HCPCS: 36415; 80053; 80076; 82248; 82728; 83540; 85025

== ENCOUNTER 2023-11-22 06:33 | Outpatient (REF) | payer OTHER, SELFPAY ==
[2023-11-22 12:29] LABS: Prostate Specific Antigen 2.89 ng/mL (<0.05-4.0)
== END 2023-11-22 06:34 | disposition home or self-care (01) ==
LOC: HO.HMGCLDS 06:33
PROVIDERS: PCP Internal Medicine; Visit Provider Urology
DX: Z12.5 Encounter for screening for malignant neoplasm of prostate (principal); C61 Malignant neoplasm of prostate
CPT/HCPCS: 36415; 84153

== ENCOUNTER 2023-11-29 09:03 | Outpatient (AMB) | payer OTHER, SELFPAY ==
--- NOTE | 2023-11-29 09:01 | A.OFFVIS_ITS ---
Intake Visit Reasons: 6m/PSA(set) Intake Note: please call [phone] Cotton Feeder Required: No Allergies No Known Allergies [No Known Allergies*] Allergy (Verified 12/03/23 13:06) HPI Comments Details: Alonso is a pleasant male. He is a patient of Dr. Aparicio. He is seen for the following urologic conditions - prostate cancer - BPH Telemedicine Evaluation 15 min Consultation [facility] work stable Continue 6 monthly PSA review PSA remains stable Remains on finasteride and tamsulosin for lower urinary tract symptoms Post void dribbling resolved with exercises Continue 6m f/u Prostate cancer 2013, repeat biopsy 202122 grade group 1 Initial diagnosis a number of years ago he is unsure of the [place] score PSA at time of diagnosis in the 8 range Elected for active surveillance - previously has considered cryotherapy PSA - 01/01 6.9 18%, 03/03 4.35 16%, 08/02 2.5, 10/02 28, 12/02 4.8, 02/02 3.9, 06/05 3.3, 12/03 2.6, 06/06 2.7, 12/04 2.9 Imaging - 02/01 MRI 90 g prostate, posterior right paramedian 1.1 cm PI-RADS 4 lesion apex-mid Repeat biopsy 10/02 - 06/25 cores positive Gl 3+3 - 5%, 30% RML, RBM 60 g on ultrasound pT1c Prolaris genetic evaluation - active surveillance group - DSM 2.1 Lower urinary tract symptoms Ongoing weakness of stream Good response to tamsulosin and finasteride Minimal side effects PFSH Medical History Elevated PSA Urge incontinence Surgical History Hx of tonsillectomy Family History Brother Diabetes Maternal Grandmother Asthma Father Heart disease Mother Varicose veins of both lower extremities with pain Other Hypertension Social History Household Members: Family Housing: Apartment Are you a primary transition of care specialist to a significant other at home: No Do you presently have visiting nurse or other home services: No Alcohol intake: current Alcohol intake frequency: holidays/special occasions only Patient Tobacco Use Status: Former Tobacco user e-Cigarette/Vaping Use: Never Used Second Hand Smoke Exposure: Yes service: No Current occupational status: employed Current occupational exposures/hazards: No Cognitive needs: No Hearing needs: No Vision needs: Yes (wears glasses) Review of Systems Const All systems reviewed & are unremarkable except as noted in HPI and below Reports no additional complaints Resp Reports no additional complaints GI Reports no additional complaints Reports as per HPI Musc Reports no additional complaints Physical Exam Telemedicine evaluation Appropriate responses Regular breathing rate and rhythm HEENT Head: Yes normal to inspection Ears: hearing grossly normal bilaterally Eyes General: appearance normal, both eyes and all related structures Neck Neck: Yes normal visual inspection Chest Chest palpation & inspection: normal inspection of the chest Resp Effort & Inspection: normal respiratory effort and able to speak in complete sentences Telehealth Telehealth [facility] Location of provider rendering services: practice address Location of patient: address on file Patient Identification confirmed using: Name, : Yes Telehealth method: video Patient verbally consented to treatment: Yes Patient verbally consented to billing insurance company: Yes Patient informed of any privacy concerns related to visit: Yes Minutes spent on Phone/Video with Pt.: 15 Assessment & Plan Assessment & Plan (1) BPH w urinary obs/LUTS: Code(s): N40.1 - Benign prostatic hyperplasia with lower urinary tract symptoms; N13.8 - Other obstructive and reflux uropathy Category: Medical (2) Prostate cancer: Comment: 2013 g prostate - Bx 202122 Grade Group 1 - Prolaris group Code(s): C61 - Malignant neoplasm of prostate Category: Medical Plan 6m f/u Patient Instructions: Imaging studies, laboratory and physical exam results were discussed and reviewed in detail. No major barriers to patient understanding were identified. An opportunity to ask questions regarding the treatment plan was provided. All questions were answered. The patient expressed understanding and agreement with the above treatment plan. The patient is aware they should contact our office by phone for worsening of their current condition or the appearance of new urologic symptoms. Compliance is encouraged with any medications and followup testing that is ordered. It is a privilege to participate in the urologic care of your patient. If you have any questions or concerns regarding treatment for the above conditions, or other urologic issues, please do not hesitate to contact me. The office telephone contact is [phone]. This note is constructed using voice recognition software. While every effort has been made to ensure accuracy heel stiffener errors may have been included. Yours sincerely, Dr Paco Lira MD, [facility] - Urology Providers of Expert, Compassionate Care for the Genitourinary System Coding Level of Care Code Tele Est Pt Level 3 (64409) Diagnoses BPH w urinary obs/LUTS N40.1; N13.8 Prostate cancer C61
--- OUTSIDE RECORDS SUMMARY | 2023-11-29 09:04 | XMS_ITS | Patient Health Record ---
Author Organization [facility] Address [address] [place] [id number] Care Team Providers Care Indirect Fire Infantryman Name Role Phone Markus ESQUIVEL, [facility] Provider Jerry Rivera Jr Unavailable [phone] Michele Hernandez Unavailable Unavailable ALLERGIES No Known [...] Change in bowel function (R19.8) Active confirmed [id number] PLAN OF TREATMENT Pending Test Test Name Order Date STOOL WBC 08/09/2022 OVA & PARASITES (O&P) 08/09/2022 GI PANEL 08/09/2022 Insurance Providers Payer Name Payer Address Payer Phone Subscriber Number Group Number Insured Name Patient Relationship to Insured Coverage Start Date Coverage End Date [facility] [address] NAA RODRIGUEZ, ELISHA [phone] [id number] GIOVANNA HENRY Self - patient is the insured MEDICAL (GENERAL) HISTORY Medical History History ICD Code prostate cancer high blood pressure hypothyroidsim high cholesterol Hemachromatosis Surgical History Surgery Date(Month/Year) 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
== END 2023-11-29 12:29 | disposition home or self-care (01) ==
LOC: HO.HUSH 09:03
PROVIDERS: PCP Internal Medicine; Visit Provider Urology
DX: N40.1 Benign prostatic hyperplasia with lower urinary tract symptoms (principal); N13.8 Other obstructive and reflux uropathy; C61 Malignant neoplasm of prostate
CPT/HCPCS: 99213

== ENCOUNTER → 2023-11-29 09:03 | Outpatient (BNVA) | payer OTHER, SELFPAY | PROVIDERS: PCP Internal Medicine; Visit Provider Urology ==

== ENCOUNTER 2023-12-03 12:32 | Outpatient (AMB) | payer OTHER, SELFPAY ==
--- NOTE | 2023-12-03 12:52 | A.OFFVIS_ITS ---
Vital Signs 12/03/23 12:55 Height 5 ft 8 in Weight 268 lb BMI 40.7 Intake Visit Reasons: N/P Left Knee pain Intake Note: Alonso a 67 year old male who presents today as a new patient for an evaluation of left knee pain. Patient reports lack of mobility in his left knee, states not really pain more just limited in ROM. He was seen by his PCP who referred him to orthopedics. Patient mentions in 1968 he had an injury to his left knee, stating no cartilage in his knee. No previous tx. States the past 2 years he has been using a flexitouch air machine that helps with his leg circulation. Allergies No Known Allergies [No Known Allergies*] Allergy (Verified 12/03/23 13:06) HPI HPI N/P Left Knee pain: Details: 67-year-old gentleman who presents to the office today for left knee pain. He states he is not having so much pain , more so he is having lack of mobility of the left knee. He shows me in the office how he can cross the right over the left, without limited motion. When he crosses the left over the right, he is limited, there is no pain with this activity. [facility] Medical History Elevated PSA Urge incontinence Surgical History Hx of tonsillectomy Family History Brother Diabetes Maternal Grandmother Asthma Father Heart disease Mother Varicose veins of both lower extremities with pain Other Hypertension Social History Household Members: Family Housing: Apartment Are you a primary home health care respiratory therapist to a significant other at home: No Do you presently have visiting nurse or other home services: No Alcohol intake: current Alcohol intake frequency: holidays/special occasions only Patient Tobacco Use Status: Former Tobacco user e-Cigarette/Vaping Use: Never Used Second Hand Smoke Exposure: Yes service: No Current occupational status: employed Current occupational exposures/hazards: No Cognitive needs: No Hearing needs: No Vision needs: Yes (wears glasses) Review of Systems Const All systems reviewed & are unremarkable except as noted in HPI and below Physical Exam Vital Signs: BMI result Body Mass Index 40.7 Const General: cooperative and no acute distress Orientation/consciousness: patient oriented x3 Resp Effort & Inspection: normal respiratory effort and able to speak in complete sentences Cardio Peripheral pulses: Peripheral pulses 2+ throughout Neuro General: patient oriented x3 Extrem Other: Left hip normal to inspection. No pain with range of motion of the hip no pain with hip flexion. No pain with range of motion of the knee. No tenderness to palpation along the medial or lateral joint line. Neurovascularly intact Results Reviewed Results Reviewed: X-rays of the left knee obtained in the office today show mild medial and lateral compartment arthritis with patellofemoral arthritis X-rays of the left hip with pain in the office today show osteoarthritic changes of the left hip joint. Assessment & Plan Assessment & Plan (1) Osteoarthritis of left knee: Code(s): M17.12 - Unilateral primary osteoarthritis, left knee Category: Medical Qualifiers: Osteoarthritis type: primary Qualified Code(s): M17.12 - Unilateral primary osteoarthritis, left knee (2) Osteoarthritis of left hip: Code(s): M16.12 - Unilateral primary osteoarthritis, left hip Category: Medical Plan I explained to the patient today that the source of his limited mobility is originating from the left hip. He does not experience any pain or significant limitations in the hip therefore we will continue to treat this conservatively with activity modifications as necessary, strengthening exercises. I also explained that weight management will also be helpful in providing less stress on the joints. If he develops any pain or limitations or concerns he can contact our office otherwise follow up as needed. Orders: Orders XR knee LT 1V Today M25.562 - Pain in left knee XR knee RT 2V Today M25.569 - Pain in unspecified knee XR hip LT min 2V Today M25.552 - Pain in left hip Coding Level of Care Code New Pt Level 3 (77488) Diagnoses Primary osteoarthritis of left knee M17.12 Osteoarthritis type: primary Osteoarthritis of left hip M16.12
[2023-12-03 12:55] VITALS: BMI 40.7
== END 2023-12-03 13:43 | disposition home or self-care (01) ==
PROVIDERS: PCP Internal Medicine; Visit Provider Physician Assistant
DX: M17.12 Unilateral primary osteoarthritis, left knee (principal); M16.12 Unilateral primary osteoarthritis, left hip
CPT/HCPCS: 99203

== ENCOUNTER 2023-12-03 12:32 | Outpatient (REF) | payer OTHER, SELFPAY ==
--- NOTE | ~2023-12-03 | XR_ITS ---
EXAMINATION: 1. RADIOGRAPHS RIGHT KNEE 2. RADIOGRAPHS LEFT KNEE 3. RADIOGRAPHS LEFT HIP CLINICAL INFORMATION: Diffuse pain COMPARISON: Left knee x-rays 09/21/2023 TECHNIQUE: 2 views of the left hip, 2 views of the left knee and one view of the right knee were obtained. FINDINGS: Left hip: Pelvic ring is intact. Sacroiliac joints are symmetric. There is neither fracture or dislocation of the left hip. There is mild narrowing of the left femoral acetabular joint space. Small osteophytes are noted along the left femoral head/neck junction. Pelvic calcifications are likely vascular in nature. Limited imaging of the right hip demonstrates mild degenerative changes. Left hip: No gross fracture or dislocation of the left knee. There is mild narrowing of the medial joint space height and patellofemoral joint space. Tiny tricompartmental marginal osteophytes noted. Right knee: Frontal view of the right knee demonstrates no gross fracture or dislocation. There is minimal narrowing of the medial joint space height. XR/XR knee RT 2V IMPRESSION: 1. Mild degenerative changes of the left hip without fracture or dislocation. 2. Mild degenerative changes of the left and right knee without fracture or dislocation.
--- NOTE | ~2023-12-03 | XR_ITS ---
EXAMINATION: 1. RADIOGRAPHS RIGHT KNEE 2. RADIOGRAPHS LEFT KNEE 3. RADIOGRAPHS LEFT HIP CLINICAL INFORMATION: Diffuse pain COMPARISON: Left knee x-rays 09/21/2023 TECHNIQUE: 2 views of the left hip, 2 views of the left knee and one view of the right knee were obtained. FINDINGS: Left hip: Pelvic ring is intact. Sacroiliac joints are symmetric. There is neither fracture or dislocation of the left hip. There is mild narrowing of the left femoral acetabular joint space. Small osteophytes are noted along the left femoral head/neck junction. Pelvic calcifications are likely vascular in nature. Limited imaging of the right hip demonstrates mild degenerative changes. Left hip: No gross fracture or dislocation of the left knee. There is mild narrowing of the medial joint space height and patellofemoral joint space. Tiny tricompartmental marginal osteophytes noted. Right knee: Frontal view of the right knee demonstrates no gross fracture or dislocation. There is minimal narrowing of the medial joint space height. XR/XR hip LT min 2V IMPRESSION: 1. Mild degenerative changes of the left hip without fracture or dislocation. 2. Mild degenerative changes of the left and right knee without fracture or dislocation.
--- NOTE | ~2023-12-03 | XR_ITS ---
EXAMINATION: 1. RADIOGRAPHS RIGHT KNEE 2. RADIOGRAPHS LEFT KNEE 3. RADIOGRAPHS LEFT HIP CLINICAL INFORMATION: Diffuse pain COMPARISON: Left knee x-rays 09/21/2023 TECHNIQUE: 2 views of the left hip, 2 views of the left knee and one view of the right knee were obtained. FINDINGS: Left hip: Pelvic ring is intact. Sacroiliac joints are symmetric. There is neither fracture or dislocation of the left hip. There is mild narrowing of the left femoral acetabular joint space. Small osteophytes are noted along the left femoral head/neck junction. Pelvic calcifications are likely vascular in nature. Limited imaging of the right hip demonstrates mild degenerative changes. Left hip: No gross fracture or dislocation of the left knee. There is mild narrowing of the medial joint space height and patellofemoral joint space. Tiny tricompartmental marginal osteophytes noted. Right knee: Frontal view of the right knee demonstrates no gross fracture or dislocation. There is minimal narrowing of the medial joint space height. XR/XR knee LT 1V IMPRESSION: 1. Mild degenerative changes of the left hip without fracture or dislocation. 2. Mild degenerative changes of the left and right knee without fracture or dislocation.
== END 2023-12-03 12:33 | disposition home or self-care (01) ==
LOC: HO.HOSX 12:32
PROVIDERS: PCP Internal Medicine; Visit Provider Physician Assistant
DX: M25.562 Pain in left knee (principal); M16.12 Unilateral primary osteoarthritis, left hip; M25.561 Pain in right knee
CPT/HCPCS: 73502; 73560

== ENCOUNTER 2024-03-26 14:25 | Outpatient (AMB) | payer MEDICARE, SELFPAY ==
--- NOTE | 2024-03-26 14:34 | MHC.PC.OV ---
Vital Signs 03/26/24 14:35 Height 5 ft 8 in Weight 260 lb BMI 39.5 BP 120/66 Blood Pressure Location Lt brachial Position Sitting Pulse 103 H Pulse Source Pulse Oximeter Pulse Oximetry (%) 96 Oxygen Delivery Method Room Air Intake Visit Reasons: Annual PE Allergies No Known Allergies [No Known Allergies*] Allergy (Verified 03/26/24 14:38) Medication List - Last Reconciled 03/26/24 by Bryan Aparicio MD atenolol 25 mg PO DAILY 90 days cholecalciferol (vitamin D3) 25 mcg PO DAILY cyclobenzaprine 5 mg PO BEDTIME 30 days finasteride 5 mg PO DAILY 90 days levothyroxine 175 mcg PO QAM losartan-hydrochlorothiazide 100-25 mg 1 tab PO DAILY 30 days lovastatin 20 mg PO DAILY tamsulosin 0.4 mg PO DAILY 90 days Tobacco use date assessed: 03/26/24 Fall risk assessment: No Falls in past year Last assessed Fall Risk: 03/26/24 Dental Screening Dental Screen Date: 09/21/23 HPI Annual PE HPI Details Patient is a 68-year-old gentleman came in today for physical exam Blood pressure is controlled Patient has seen surgery scheduler as he was having flashing He was referred to [facility] , he is under observation at this time Patient would like to have a Cologuard test done he does not want colonoscopy Hemoglobin A1c is 4.9 patient is diet-controlled diabetic He will have lab done in April that was ordered by Hematology I have added TSH as well Medication list reviewed Prevnar 20 vaccine given Follow-up 6 months PFSH Medical History Elevated PSA Urge incontinence Surgical History Hx of tonsillectomy Family History Brother Diabetes Maternal Grandmother Asthma Father Heart disease Mother Varicose veins of both lower extremities with pain Other Hypertension Social History Household Members: Family Housing: Apartment Are you a primary care associate to a significant other at home: No Do you presently have visiting nurse or other home services: No Alcohol intake: current Alcohol intake frequency: holidays/special occasions only Patient Tobacco Use Status: Former Tobacco user e-Cigarette/Vaping Use: Never Used Second Hand Smoke Exposure: Yes service: No Current occupational status: employed Current occupational exposures/hazards: No Cognitive needs: No Hearing needs: No Vision needs: Yes (wears glasses) Questionnaire PHQ-9 Over the last 2 weeks, how often have you been bothered by any of the following problems? 1. Little interest or pleasure in doing things: not at all 2. Feeling down, depressed, or hopeless: not at all 3. Trouble falling or staying asleep, or sleeping too much: not at all 4. Feeling tired or having little energy: not at all 5. Poor appetite or overeating: not at all 6. Feeling bad about yourself - or that you are a failure or have let yourself or your family down: not at all 7. Trouble concentrating on things, such as reading the newspaper or watching television: not at all 8. Moving or speaking so slowly that other people could have noticed. Or the opposite - being so fidgety or restless that you have been moving around a lot more than usual: not at all 9. Thoughts that you would be better off or of hurting yourself in some way: not at all Total score: 0 Depression Screening Interpretation: Negative Depression Screening Done: Yes 25519 - PHQ-9 Billing: Yes Source: Developed by Drs. Damaso Reyna, Carmen Myers, Samuel Cardoso and colleagues, with an educational concepcion from [employer]. Thrive Questionnaire Date Thrive assessed: 03/26/24 I am a: Patient What is your living situation today?: I have a steady place to live Within the past 12 months, did the food you bought not last and you didn't have the money to get more?: Never true Within the past 12 months, did you worry whether your food would run out before you got money to buy more?: Never true Do you have trouble paying for medicines?: No Do you have trouble getting transportation to medical appointments?: No Do you have trouble paying your heating and electricity bill?: No Do you have trouble taking care of your child, family member or friend?: No Do you have trouble with day-to-day activities such as bathing, preparing meals, shopping, managing finances, etc.?: No Are you currently unemployed and looking for a job?: No Are you interested in more education?: No Please select the resources that you would like help with: None Currently or been in a relationship where the following occur: No concerns reported THRIVE Score: 0 AUDIT C Alcohol Use Questionnaire (AUDIT-C) 1. How often do you have a drink containing alcohol?: Never 3. How often do you have six or more drinks on one occasion?: Never Total Score: 0 SYLVIA-7 AMB Questionnaire SYLVIA-7 Date SYLVIA - 7 assessed: 03/26/24 Feeling nervous, anxious, or on edge: 0 = Not at all Not being able to stop or control worryin = Not at all Worrying too much about different things: 0 = Not at all Trouble relaxin = Not at all Being so restless that it is hard to sit still: 0 = Not at all Becoming easily annoyed or irritable: 0 = Not at all Feeling afraid as if something awful might happen: 0 = Not at all Total SYLVIA-7 score (0-4 normal; 5-9 mild; 10-14 moderate; 15-21 severe): 0 Source: Developed by Drs. Damaso Reyna, Carmen Myers, Samuel Cardoso and colleagues, with an educational concepcion from [employer]. Review of Systems Const Denies chills, Denies fever(s) and Denies headache(s) ENT Denies headache(s), Denies nasal discharge, Denies nasal obstruction, Denies odynophagia and Denies sinus pain Card Denies chest pain at rest and Denies chest pain with activity Resp Denies cough and Denies hemoptysis GI Denies odynophagia, Denies vomiting and Denies hematemesis Reports as per HPI Musc Denies abnormal gait Skin/Breast Reports as per HPI Neuro Denies Neuro-related abnormal movements, Denies Abnormal speech present, Denies abnormal gait, Denies headache(s) and Denies Sensory deficit (Neuro) Psych Denies mood swings and Denies paranoia Endo Reports as per HPI Chetan/Lymph Reports as per HPI Aller/Immun Reports as per HPI Physical exam (Primary Care) Vital Signs: Last Vital Signs Pulse 103 H 03/26/24 14:35 BP 120/66 03/26/24 14:35 Pulse Ox 96 03/26/24 14:35 Oxygen Delivery Method Room Air 03/26/24 14:35 BMI result Body Mass Index 39.5 Tobacco/Smoking Status: Tobacco use Status Tobacco use date assessed 03/26/24 03/26/24 14:41 Patient Tobacco Use Status Former Tobacco user 03/26/24 14:41 e-Cigarette/Vaping Use Never Used 03/26/24 14:41 PHQ-9: PHQ-9 Score PHQ-9: Total score 0 03/26/24 15:15 Depression Screening Interpretation: Negative Thrive Assessment: Date of Thrive Assessment Date Thrive assessed 03/26/24 03/26/24 14:41 Currently or been in a relationship where the following occur: No concerns reported Const General: cooperative, comfortable and no acute distress Orientation/consciousness: patient oriented x3 HENMT Head: Yes normocephalic and Yes atraumatic Eyes General: appearance normal, both eyes and all related structures Pupils: Equal, round and reactive pupils present EOM: EOMs intact bilaterally Neck Neck: Yes supple and No lymphadenopathy Thyroid: Thyroid normal Lymphatic: no lymphadenopathy noted Resp Effort & Inspection: normal respiratory effort and able to speak in complete sentences Auscultation: clear to auscultation bilaterally Cardio Heart sounds: S1 normal heart sound present and S2 normal heart sound present GI Palpation (GI): Soft to palpation and nontender Auscultation: normal bowel sounds General: Yes no CVA tenderness Back/Spine/Pelvis Back: no CVA tenderness Skin General skin exam: elasticity normal and turgor normal Neuro General: patient oriented x3 and gait normal Cranial nerves: Yes Equal, round and reactive pupils present Speech: No Abnormal speech present Sensory Exam: No Sensory deficit (Neuro) Coordination: tandem gait normal and Romberg test negative Extrem General: Yes normal exam except as noted and No edema Results AMB Hemoglobin A1c AMB Hemoglobin A1c 4.9 % Last Edit by Paloma Laura CMA on 03/26/24 15:07 Immunizations pneumoc 20-linnette conj-dip cr(PF) 0.5 mL IM syringe Performing Provider: Bryan Aparicio MD Performing Location: [facility] Administered by: ROSENDA Laguna on 03/26/24 15:15 Dose Route Admin Location Dispensed Lot Number Expiration Date NDC Instrument Inspector 0.5 mL IM Right Deltoid 0.5 mL [id number] 06/13/25 [id number] [employer] VIS Given Date VIS Provided VIS Publication Date 03/26/24 Single Vaccine 21 Eligibility Eligibility Date Funding Source Not VFC Eligible 03/26/24 Private Results Reviewed Results Reviewed: Laboratory Last Values Hgb A1c (Clinic) 4.9 % (4.0-6.0) 03/26/24 15:06 Coding Level of Care Code Est Pt Level 3 (86306) Est Pt Prev Care >65y(45486) Diagnoses Encounter for general adult medical examination with abnormal findings Z00.01 Immunizations incomplete Z28.39 Other specified hypothyroidism E03.8 Hypertension, essential I10 Lipid disorder E78.9 Elevated ferritin R79.89 Other hemochromatosis E83.118 Hemochromatosis type: other hemochromatosis Flashing lights seen H53.8 Additional Codes PHQ-9 - 57825 - PHQ-9 Billing: Yes ([id number]) Assessment & Plan Assessment & Plan (1) Encounter for general adult medical examination with abnormal findings: Code(s): Z00.01 - Encounter for general adult medical examination with abnormal findings Category: Medical (2) Immunizations incomplete: Code(s): Z28.39 - Other underimmunization status Category: Medical (3) Other specified hypothyroidism: Code(s): E03.8 - Other specified hypothyroidism Category: Medical (4) Hypertension, essential: Code(s): I10 - Essential (primary) hypertension Category: Medical (5) Lipid disorder: Code(s): E78.9 - Disorder of lipoprotein metabolism, unspecified Category: Medical (6) Elevated ferritin: Code(s): R79.89 - Other specified abnormal findings of blood chemistry Category: Medical (7) Hemochromatosis: Code(s): E83.119 - Hemochromatosis, unspecified Category: Medical Qualifiers: Hemochromatosis type: other hemochromatosis Qualified Code(s): E83.118 - Other hemochromatosis (8) Flashing lights seen: Code(s): H53.8 - Other visual disturbances Category: Medical Plan Patient is a 68-year-old gentleman came in today for physical exam Blood pressure is controlled Patient has seen surgery scheduler as he was having flashing He was referred to [facility] , he is under observation at this time Patient would like to have a Cologuard test done he does not want colonoscopy Hemoglobin A1c is 4.9 patient is diet-controlled diabetic He will have lab done in April that was ordered by Hematology I have added TSH as well Medication list reviewed Prevnar 20 vaccine given Follow-up 6 months Orders: Orders Pneumococcal 20 Immunization Today Z23 - Encounter for immunization TSH reflex Free T4 Today E03.8 - Other specified hypothyroidism AMB Hemoglobin A1c Today Z13.9 - Encounter for screening, unspecified Referrals Cologuard Test Z12.11 - Encounter for screening for malignant neoplasm of colon, Z12.12 - Encounter for screening for malignant neoplasm of rectum
[2024-03-26 14:35] VITALS: BP 120/66; PULSE 103; O2SAT 96; BMI 39.5
== END 2024-03-26 15:13 | disposition home or self-care (01) ==
PROVIDERS: PCP Internal Medicine; Visit Provider Internal Medicine
DX: Z00.00 Encounter for general adult medical examination without abnormal findings (principal); E03.8 Other specified hypothyroidism; I10 Essential (primary) hypertension; Z28.39 Other underimmunization status; E78.9 Disorder of lipoprotein metabolism, unspecified; E83.118 Other hemochromatosis; H53.8 Other visual disturbances; Z23 Encounter for immunization

== ENCOUNTER → 2024-03-26 14:25 | Outpatient (BNVA) | payer OTHER, SELFPAY | PROVIDERS: PCP Internal Medicine; Visit Provider Internal Medicine | DX: Z00.01 Encounter for general adult medical examination with abnormal findings (principal); Z23 Encounter for immunization; E03.8 Other specified hypothyroidism; I10 Essential (primary) hypertension; E78.9 Disorder of lipoprotein metabolism, unspecified; R79.89 Other specified abnormal findings of blood chemistry; E83.118 Other hemochromatosis; H53.8 Other visual disturbances | CPT/HCPCS: 83036; 90471; 90677; 96127; 99397 ==

== ENCOUNTER 2024-04-21 12:20 | Outpatient (REF) | payer MEDICARE, SELFPAY ==
[2024-04-21 13:23] LABS: MANUAL DIFF FLAG NO
[2024-04-21 13:26] LABS: Basophils Absolute Auto 0.1 X10*3/uL (0.0-0.2); Eosinophils Absolute Auto 0.2 X10*3/uL (0.0-0.4); Eosinophils Percent Auto 1.7 % (0-4); Hematocrit 43.2 % (42.0-52.0); Hemoglobin 14.7 g/dl (14.0-18.0); Imm Gran Abs Auto 0.03 X10*3/uL (0.00-0.03); Imm Gran Pct Auto 0.3 % (0.0-0.4); Lymphocytes Absolute Auto 2.7 X10*3/uL (1.2-4.9); Lymphocytes Percent Auto 30.2 % (20-40); Mean Corpuscular Hemoglobin 28.9 pg (27.0-33.0); Monocytes Absolute Auto 0.9 X10*3/uL (0.1-1.2); Neutrophils Absolute Auto 5.1 x10*3/uL (2.0-8.3); Neutrophils Percent Auto 56.8 % (45-73); Platelet Count 261 X10*3/uL (160-400); Red Blood Count 5.08 X10*6/uL (4.60-5.80); Red Cell Distribution Width 13.4 % (11.0-16.0)
[2024-04-21 14:13] LABS: Carbon Dioxide 29 mmol/L (22-29); Chloride 104 mmol/L (96-108); Potassium 3.7 mmol/L (3.3-5.1); Sodium 139 mmol/L (135-145)
[2024-04-21 14:14] LABS: Alanine Aminotransferase 48 U/L (0-40); Alkaline Phosphatase 69 U/L (39-117); Anion Gap 10 (12-20); Aspartate Amino Transferase 39 U/L (5-37); Bilirubin Total 1.5 mg/dL (0.0-1.0); Blood Urea Nitrogen 18 mg/dL (9-16); Calcium 9.3 mg/dL (8.4-10.2); Estimated Glomerular Filt Rate > 60; Glucose Random 92 mg/dL (60-115); Iron 124 mcg/dL (45-160); Percent Iron Saturation 40 % (15-50); Total Iron Binding Capacity 313 mcg/dL (228-428); Total Protein 7.8 g/dL (6.5-8.0); Unsaturated Iron Binding 189 ug/dL
[2024-04-21 14:27] LABS: Ferritin 548 ng/mL (20-250)
[2024-04-21 15:10] LABS: Free T4 (Free Thyroxine) 1.34 ng/dL (0.71-1.85)
== END 2024-04-21 12:21 | disposition home or self-care (01) ==
LOC: HO.HMGCLDS 12:20
PROVIDERS: PCP Internal Medicine; Referring Provider Internal Medicine Medical Oncology; Visit Provider Internal Medicine
DX: E03.8 Other specified hypothyroidism (principal); C61 Malignant neoplasm of prostate
CPT/HCPCS: 36415; 80053; 82728; 83540; 84439; 84443; 85025

== ENCOUNTER 2024-05-30 13:36 | Outpatient (AMB) | payer MEDICARE, SELFPAY ==
--- NOTE | 2024-05-30 13:37 | A.OFFVIS_ITS ---
Intake Visit Reasons: 6M PSA/Testo(set) Intake Note: Patient is present for 6M PSA/TESTO Urology Medication:TAMSULOSIN,FINASTERIDE Antibiotic Allergy:NONE Blood Thinner:NONE Surgical Endoscopist Required: No Allergies No Known Allergies [No Known Allergies*] Allergy (Verified 05/30/24 13:38) HPI Comments Details: Alonso is a pleasant male. He is a patient of Dr. Aparicio. He is seen for the following urologic conditions - prostate cancer - BPH PSA 2.6 remain stable Would reduce finasteride to every other day Remains on finasteride and tamsulosin for lower urinary tract symptoms Post void dribbling resolved with exercises Continue 6m f/u Prostate cancer 2013, repeat biopsy 202122 grade group 1 Initial diagnosis a number of years ago he is unsure of the [place] score PSA at time of diagnosis in the 8 range Elected for active surveillance - previously has considered cryotherapy PSA - 01/01 6.9 18%, 03/03 4.35 16%, 08/02 2.5, 10/02 28, 12/02 4.8, 02/02 3.9, 06/05 3.3, 12/03 2.6, 06/06 2.7, 12/04 2.9 Imaging - 02/01 MRI 90 g prostate, posterior right paramedian 1.1 cm PI-RADS 4 lesion apex-mid Repeat biopsy 10/02 - 06/25 cores positive Gl 3+3 - 5%, 30% RML, RBM 60 g on ultrasound pT1c Prolaris genetic evaluation - active surveillance group - DSM 2.1 Lower urinary tract symptoms Ongoing weakness of stream Good response to tamsulosin and finasteride Minimal side effects PFSH Medical History Elevated PSA Urge incontinence Surgical History Hx of tonsillectomy Family History Brother Diabetes Maternal Grandmother Asthma Father Heart disease Mother Varicose veins of both lower extremities with pain Other Hypertension Social History Household Members: Family Housing: Apartment Are you a primary gericare aide teacher to a significant other at home: No Do you presently have visiting nurse or other home services: No Alcohol intake: current Alcohol intake frequency: holidays/special occasions only Patient Tobacco Use Status: Former Tobacco user e-Cigarette/Vaping Use: Never Used Second Hand Smoke Exposure: Yes service: No Current occupational status: employed Current occupational exposures/hazards: No Cognitive needs: No Hearing needs: No Vision needs: Yes (wears glasses) Review of Systems Const Denies chills and Denies fever(s) Card Reports no additional complaints and Denies syncope Resp Denies cough GI Denies abdominal pain and Denies heartburn Reports as per HPI and Denies change in libido Neuro Denies syncope Psych Denies change in libido Endo Denies change in libido Physical Exam Const General: cooperative, healthy appearing, comfortable and no acute distress Orientation/consciousness: patient oriented x3 HEENT Face and sinus: Yes normal facial exam Mouth: moist mucous membranes Neck Neck: Yes normal visual inspection, Yes full ROM and Yes trachea midline Chest Chest palpation & inspection: normal inspection of the chest Resp Effort & Inspection: normal respiratory effort, able to speak in complete sentences and no respiratory distress GI Inspection: Yes normal to inspection Back/Spine/Pelvis Cervical Spine: normal cervical lordosis Thoracic/Lumbar Spine: thoracic and lumbar spine normal to inspection Skin General skin exam: no rashes or lesions noted Neuro General: patient oriented x3, gait normal, tone normal and moves all extremities Extrem General: Yes normal to inspection and Yes capillary refill normal Results AMB Urinalysis, Automated UA Leukoctes 125 Nasra/uL Last Edit by JAMES Vasquez on 05/30/24 13:49 UA Nitrite Negative Last Edit by JAMES Vasquez on 05/30/24 13:49 UA Urobilinogen 0.2 mg/dL Last Edit by JAMES Vasquez on 05/30/24 13:4 9 UA Protein 15 mg/dL Last Edit by JAMES Vasquez on 05/30/24 13:49 UA pH 6.0 Last Edit by JAMES Vasquez on 05/30/24 13:49 UA Blood 0 Clifford/uL Last Edit by JAMES Vasquez on 05/30/24 13:49 UA Specific [place] 1.015 Last Edit by JAMES Vasquez on 05/30/24 13: 49 UA Ketone Negative Last Edit by JAMES Vasquez on 05/30/24 13:49 UA Bilirubin 0 mg/dL Last Edit by JAMES Vasquez on 05/30/24 13:49 UA Glucose 0 mg/dL Last Edit by JAMES Vasquez on 05/30/24 13:49 Results Reviewed Results Reviewed: Laboratory Last Values Urine pH (Auto) 6.0 05/30/24 13:48 Specific [place] (Auto) 1.015 05/30/24 13:48 Urine Protein (Auto) 15 mg/dL 05/30/24 13:48 Glucose (UA)(Auto) 0 mg/dL 05/30/24 13:48 Urine Ketones (Auto) Negative 05/30/24 13:48 Urine Blood (Auto) 0 Clifford/uL 05/30/24 13:48 Urine Nitrite (Auto) Negative 05/30/24 13:48 Urine Bilirubin (Auto) 0 mg/dL 05/30/24 13:48 Urine Urobilinogen (Auto) 0.2 mg/dL 05/30/24 13:48 Leukocyte Esterase (Auto) 125 Nasra/uL 05/30/24 13:48 Assessment & Plan Assessment & Plan (1) Prostate cancer: Comment: 2013 90 g prostate - Bx 202122 Grade Group 1 - Prolaris group Code(s): C61 - Malignant neoplasm of prostate Category: Medical Plan Six-month follow-up PSA Orders: Orders AMB Urinalysis Automated Today Z13.9 - Encounter for screening, unspecified Prostate Specific Antigen 6 Months C61 - Malignant neoplasm of prostate Patient Instructions: Imaging studies, laboratory and physical exam results were discussed and reviewed in detail. No major barriers to patient understanding were identified. An opportunity to ask questions regarding the treatment plan was provided. All questions were answered. The patient expressed understanding and agreement with the above treatment plan. The patient is aware they should contact our office by phone for worsening of their current condition or the appearance of new urologic symptoms. Compliance is encouraged with any medications and followup testing that is ordered. It is a privilege to participate in the urologic care of your patient. If you have any questions or concerns regarding treatment for the above conditions, or other urologic issues, please do not hesitate to contact me. The office telephone contact is [phone]. This note is constructed using voice recognition software. While every effort has been made to ensure accuracy belt and link assembly supervisor errors may have been included. Yours sincerely, Dr Paco Lira MD, [facility] - Urology Providers of Expert, Compassionate Care for the Genitourinary System Coding Level of Care Code Est Pt Level 3 (46421) Diagnoses Prostate cancer C61
== END 2024-05-30 13:57 | disposition home or self-care (01) ==
PROVIDERS: PCP Internal Medicine; Visit Provider Urology
DX: C61 Malignant neoplasm of prostate (principal); Z13.9 Encounter for screening, unspecified
CPT/HCPCS: 99213

== ENCOUNTER → 2024-05-30 13:36 | Outpatient (BNVA) | payer MEDICARE, SELFPAY | PROVIDERS: PCP Internal Medicine; Visit Provider Urology | DX: C61 Malignant neoplasm of prostate (principal) | CPT/HCPCS: 81003; 99212 ==

== ENCOUNTER 2024-09-24 12:49 | Outpatient (AMB) | payer MEDICARE, SELFPAY ==
[2024-09-24 12:53] VITALS: BP 136/74; PULSE 96; O2SAT 96; BMI 40.3
--- NOTE | 2024-09-24 12:53 | A.OFFPC_ITS ---
Vital Signs 09/24/24 12:53 Height 5 ft 8 in Weight 265 lb 2 oz BMI 40.3 BP 136/74 Blood Pressure Location Lt brachial Position Sitting Pulse 96 Pulse Source Pulse Oximeter Pulse Oximetry (%) 96 Oxygen Delivery Method Room Air Intake Visit Reasons: 6 months f/up Allergies No Known Allergies [No Known Allergies*] Allergy (Verified 09/24/24 12:53) Medication List - Last Reconciled 09/24/24 by Bryan Aparicio MD atenolol 25 mg PO DAILY 90 days cholecalciferol (vitamin D3) 25 mcg PO DAILY cyclobenzaprine 5 mg PO BEDTIME 30 days finasteride 5 mg PO DAILY 90 days levothyroxine 150 mcg PO QAM losartan-hydrochlorothiazide 100-25 mg 1 tab PO DAILY 30 days lovastatin 20 mg PO DAILY tamsulosin 0.4 mg PO DAILY 90 days Tobacco use date assessed: 09/24/24 Fall risk assessment: No Falls in past year Last assessed Fall Risk: 09/24/24 Dental Screening Dental Screen Date: 09/24/24 Did you have a dental visit in the last 12 months?: Yes Did you have a dental problem in the last 6 months where you did not have access to dental care?: No Was dental information given to patient?: Patient has dentist HPI 6 months f/up HPI Details History - The patient is a 68 year old male pres enting with irritable bowel syndrome. - The patient reports a long-standing hi story of diarrhea alternating with constipation, characteristic of irritable bowel syndrome (IBS). The patient manages diarrhea episodes with Imodium as needed. Last colorectal cancer screening was a Cologuard test a year ago, reported as normal. No recent visits to a devops engineer, and patient recalls consulting a specialist a long time ago. - The patient's history of osteoarthriti s, particularly in the hip and knee, results in reduced mobility. They last had hip-related imaging approximately a year or two ago, which indicated mild arthritis without fracture. Hip replacement was suggested but declined by the patient, opting for conservative management. Some discomfort and difficulty were noted during certain activities, such as entering a car. The patient experiences joint stiffness and crackling sounds in the neck, alongside occasional leg soreness. - The patient has been monitoring high i kory levels (hyperferritinemia) under the guidance of an oncologist/senior mobile application developer, with a follow-up appointment scheduled next month. - Bilateral carpal tunnel syndrome manif ests with significant symptoms, more severe on the right side. The patient experiences tingling and numbness, especially when holding objects. A nerve conduction study was performed years ago without recent evaluation, but worsening symptoms are noted. - Current medications include atenolol, vitamin D, finasteride, levothyroxine, losartan, hydrochlorothiazide, lovastatin, and tamsulosin. Sacrobenzaprine is used as needed for back pain. - The patient regularly experiences saima rointestinal discomfort, including gas without bowel movements, attributed to IBS. No prior use of probiotics, but a dietary change has been advised. 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 - Maintain a food diary to identify any foods that may trigger bowel symptoms or gas. - Continue to monitor your iron levels w ith your oncologist, and attend follow- up appointments as scheduled. - Use wrist splints at night for carpal tunnel syndrome to alleviate symptoms. Wait for EMG nerve conduction study - For arthritis-related pain, consider t aking Aleve with meals for pain relief. - Prioritize maintaining mobility by thomas ping the muscles strong around affected joints. - Follow up with already scheduled appoi ntments and attend the upcoming lab tests. Review of Systems - General: No fever no chills - Neurological: No headaches no dizziness - Ear nose throat: No sore throat no hearing difficulty no ear pain - Cardiovascular: No syncope, no chest pain, no palpitations - Gastrointestinal: No nausea vomiting or diarrhea - Endocrine: No polyuria polydipsia no heat intolerance - Genitourinary: No dysuria , no blood in urine Physical Exam General: No acute distress HEENT: No acute findings Neck: Supple, with arthritis causing crackling sounds Respiratory system: Able to talk in full sentences, no audible wheeze Cardiovascular: S1-S2 regular in rate and rhythm Gastrointestinal: Soft bowel sounds positive Extremities: Tingling and numbness in both hands due to carpal tunnel, right worse than left TRIMMING INSPECTOR: Alert awake oriented x3 motor sensory intact Skin: Normal turgor PFSH Medical History Elevated PSA Urge incontinence Surgical History Hx of tonsillectomy Family History Brother Diabetes Maternal Grandmother Asthma Father Heart disease Mother Varicose veins of both lower extremities with pain Other Hypertension Social History Household Members: Family Housing: Apartment Are you a primary resident care aid to a significant other at home: No Do you presently have visiting nurse or other home services: No Alcohol intake: current Alcohol intake frequency: holidays/special occasions only Patient Tobacco Use Status: Former Tobacco user e-Cigarette/Vaping Use: Never Used Second Hand Smoke Exposure: Yes service: No Current occupational status: employed Current occupational exposures/hazards: No Cognitive needs: No Hearing needs: No Vision needs: Yes (wears glasses) Questionnaire PHQ-9 Over the last 2 weeks, how often have you been bothered by any of the following problems? 1. Little interest or pleasure in doing things: not at all 2. Feeling down, depressed, or hopeless: not at all 3. Trouble falling or staying asleep, or sleeping too much: not at all 4. Feeling tired or having little energy: several days 5. Poor appetite or overeating: not at all 6. Feeling bad about yourself - or that you are a failure or have let yourself or your family down: not at all 7. Trouble concentrating on things, such as reading the newspaper or watching television: not at all 8. Moving or speaking so slowly that other people could have noticed. Or the opposite - being so fidgety or restless that you have been moving around a lot more than usual: not at all 9. Thoughts that you would be better off or of hurting yourself in some way: not at all Total score: 1 Depression Screening Interpretation: Negative Depression Screening Done: Yes 07079 - PHQ-9 Billing: Yes Source: Developed by Drs. Damaso Reyna, Carmen Myers, Samuel Cardoso and colleagues, with an educational concepcion from [employer]. Thrive Questionnaire Date Thrive assessed: 09/24/24 I am a: Patient What is your living situation today?: I have a steady place to live Within the past 12 months, did the food you bought not last and you didn't have the money to get more?: Never true Within the past 12 months, did you worry whether your food would run out before you got money to buy more?: Never true Do you have trouble paying for medicines?: No Do you have trouble getting transportation to medical appointments?: No Do you have trouble paying your heating and electricity bill?: I choose not to answer this question Do you have trouble taking care of your child, family member or friend?: I choose not to answer this question Do you have trouble with day-to-day activities such as bathing, preparing meals, shopping, managing finances, etc.?: No Are you currently unemployed and looking for a job?: No Are you interested in more education?: No Please select the resources that you would like help with: None Currently or been in a relationship where the following occur: No concerns reported THRIVE Score: 0 AUDIT C Alcohol Use Questionnaire (AUDIT-C) 1. How often do you have a drink containing alcohol?: Never 3. How often do you have six or more drinks on one occasion?: Never Total Score: 0 Score Reviewed/Action Taken: Yes SYLVIA-7 AMB Questionnaire SYLVIA-7 Date SYLVIA - 7 assessed: 09/24/24 Feeling nervous, anxious, or on edge: 1 = Several days Not being able to stop or control worryin = Several days Worrying too much about different things: 1 = Several days Trouble relaxin = Several days Being so restless that it is hard to sit still: 0 = Not at all Becoming easily annoyed or irritable: 1 = Several days Feeling afraid as if something awful might happen: 1 = Several days Total SYLVIA-7 score (0-4 normal; 5-9 mild; 10-14 moderate; 15-21 severe): 6 Source: Developed by Drs. Damaso Reyna, Carmen Myers, Samuel Cardoso and colleagues, with an educational concepcion from [employer]. SYLVIA-7 Assessment Billing SYLVIA-7 Assessment Tool: SYLVIA-7 Assessment 80278 Physical exam (Primary Care) Vital Signs: Last Vital Signs Pulse 96 09/24/24 12:53 BP 136/74 09/24/24 12:53 Pulse Ox 96 09/24/24 12:53 Oxygen Delivery Method Room Air 09/24/24 12:53 BMI result Body Mass Index 40.3 Tobacco/Smoking Status: Tobacco use Status Tobacco use date assessed 09/24/24 09/24/24 12:58 Patient Tobacco Use Status Former Tobacco user 09/24/24 12:58 e-Cigarette/Vaping Use Never Used 09/24/24 12:58 PHQ-9: PHQ-9 Score PHQ-9: Total score 1 09/24/24 13:14 Depression Screening Interpretation: Negative Thrive Assessment: Date of Thrive Assessment Date Thrive assessed 09/24/24 09/24/24 12:58 Currently or been in a relationship where the following occur: No concerns reported Coding Level of Care Code Est Pt Level 5 (32022) Complex EM visit Add On G2211 Diagnoses Hypertension, essential I10 Carpal tunnel syndrome, bilateral G56.03 Prostate cancer C61 Other hemochromatosis E83.118 Hemochromatosis type: other hemochromatosis Lipid disorder E78.9 Other specified hypothyroidism E03.8 Morbid obesity due to excess calories E66.01 Osteoarthritis involving multiple joints on both sides of body M15.9 Irritable bowel syndrome with mixed bowel habits K58.2 Additional Codes SYLVIA-7 Assessment Billing - SYLVIA-7 Assessment Tool: SYLVIA-7 Assessment 68526 ([id number]) PHQ-9 - 35776 - PHQ-9 Billing: Yes ([id number]) Time Spent (min) 42 Comment Reviewing chart, labs, [id number] with the patient, coordination of care Assessment & Plan Assessment & Plan (1) Hypertension, essential: Code(s): I10 - Essential (primary) hypertension Category: Medical (2) Carpal tunnel syndrome, bilateral: Code(s): G56.03 - Carpal tunnel syndrome, bilateral upper limbs Category: Medical (3) Prostate cancer: Comment: 2013 90 g prostate - Bx 202122 Grade Group 1 - Prolaris group Code(s): C61 - Malignant neoplasm of prostate Category: Medical (4) Hemochromatosis: Code(s): E83.119 - Hemochromatosis, unspecified Category: Medical Qualifiers: Hemochromatosis type: other hemochromatosis Qualified Code(s): E83.118 - Other hemochromatosis (5) Lipid disorder: Code(s): E78.9 - Disorder of lipoprotein metabolism, unspecified Category: Medical (6) Other specified hypothyroidism: Code(s): E03.8 - Other specified hypothyroidism Category: Medical (7) Morbid obesity due to excess calories: Code(s): E66.01 - Morbid (severe) obesity due to excess calories Category: Medical (8) Osteoarthritis involving multiple joints on both sides of body: Code(s): M15.9 - Polyosteoarthritis, unspecified Category: Medical (9) Irritable bowel syndrome with mixed bowel habits: Code(s): K58.2 - Mixed irritable bowel syndrome Category: Medical Plan History - The patient is a 68 year old male presenting with irritable bowel syndrome. - The patient reports a long-standing history of diarrhea alternating with constipation, characteristic of irritable bowel syndrome (IBS). The patient manages diarrhea episodes with Imodium as needed. Last colorectal cancer screening was a Cologuard test a year ago, reported as normal. No recent visits to a devops engineer, and patient recalls consulting a specialist a long time ago. - The patient's history of osteoarthritis, particularly in the hip and knee, results in reduced mobility. They last had hip-related imaging approximately a year or two ago, which indicated mild arthritis without fracture. Hip replacement was suggested but declined by the patient, opting for conservative management. Some discomfort and difficulty were noted during certain activities, such as entering a car. The patient experiences joint stiffness and crackling sounds in the neck, alongside occasional leg soreness. - The patient has been monitoring high iron levels (hyperferritinemia) under the guidance of an oncologist/senior mobile application developer, with a follow-up appointment scheduled next month. - Bilateral carpal tunnel syndrome manifests with significant symptoms, more severe on the right side. The patient experiences tingling and numbness, especially when holding objects. A nerve conduction study was performed years ago without recent evaluation, but worsening symptoms are noted. - Current medications include atenolol, vitamin D, finasteride, levothyroxine, losartan, hydrochlorothiazide, lovastatin, and tamsulosin. Sacrobenzaprine is used as needed for back pain. - The patient regularly experiences gastrointestinal discomfort, including gas without bowel movements, attributed to IBS. No prior use of probiotics, but a dietary change has been advised. 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 - Maintain a food diary to identify any foods that may trigger bowel symptoms or gas. - Continue to monitor your iron levels with your oncologist, and attend follow- up appointments as scheduled. - Use wrist splints at night for carpal tunnel syndrome to alleviate symptoms. Wait for EMG nerve conduction study - For arthritis-related pain, consider taking Aleve with meals for pain relief. - Prioritize maintaining mobility by keeping the muscles strong around affected joints. - Follow up with already scheduled appointments and attend the upcoming lab tests. Orders: Orders UA CC w/rflx Micro + Cult Today C61 - Malignant neoplasm of prostate, E03.8 - Other specified hypothyroidism, E66.01 - Morbid (severe) obesity due to excess calories, E78.9 - Disorder of lipoprotein metabolism, unspecified, E83.118 - Other hemochromatosis, I10 - Essential (primary) hypertension, M15.9 - Polyosteoarthritis, unspecified NE nerve conduction velocity Today G56.03 - Carpal tunnel syndrome, bilateral upper limbs NE electromyogram (EMG) Today G56.03 - Carpal tunnel syndrome, bilateral upper limbs TSH reflex Free T4 Today C61 - Malignant neoplasm of prostate, E03.8 - Other specified hypothyroidism, E66.01 - Morbid (severe) obesity due to excess calories, E78.9 - Disorder of lipoprotein metabolism, unspecified, E83.118 - Other hemochromatosis, I10 - Essential (primary) hypertension, M15.9 - Polyosteoarthritis, unspecified Complete Blood Count Auto Diff Today C61 - Malignant neoplasm of prostate, E03.8 - Other specified hypothyroidism, E66.01 - Morbid (severe) obesity due to excess calories, E78.9 - Disorder of lipoprotein metabolism, unspecified, E83.118 - Other hemochromatosis, I10 - Essential (primary) hypertension, M15.9 - Polyosteoarthritis, unspecified Comprehensive [place]. Panel Fast Today C61 - Malignant neoplasm of prostate, E03.8 - Other specified hypothyroidism, E66.01 - Morbid (severe) obesity due to excess calories, E78.9 - Disorder of lipoprotein metabolism, unspecified, E83.118 - Other hemochromatosis, I10 - Essential (primary) hypertension, M15.9 - Polyosteoarthritis, unspecified Lipid Panel Today C61 - Malignant neoplasm of prostate, E03.8 - Other specified hypothyroidism, E66.01 - Morbid (severe) obesity due to excess calories, E78.9 - Disorder of lipoprotein metabolism, unspecified, E83.118 - Other hemochromatosis, I10 - Essential (primary) hypertension, M15.9 - Polyosteoarthritis, unspecified Vitamin D 25-OH (D2 and D3) Today C61 - Malignant neoplasm of prostate, E03.8 - Other specified hypothyroidism, E66.01 - Morbid (severe) obesity due to excess calories, E78.9 - Disorder of lipoprotein metabolism, unspecified, E83.118 - Other hemochromatosis, I10 - Essential (primary) hypertension, M15.9 - Polyosteoarthritis, unspecified Vitamin B12 Today C61 - Malignant neoplasm of prostate, E03.8 - Other specified hypothyroidism, E66.01 - Morbid (severe) obesity due to excess calories, E78.9 - Disorder of lipoprotein metabolism, unspecified, E83.118 - Other hemochromatosis, I10 - Essential (primary) hypertension, M15.9 - Polyosteoarthritis, unspecified Prostate Specific Antigen Today C61 - Malignant neoplasm of prostate, E03.8 - Other specified hypothyroidism, E66.01 - Morbid (severe) obesity due to excess calories, E78.9 - Disorder of lipoprotein metabolism, unspecified, E83.118 - Other hemochromatosis, I10 - Essential (primary) hypertension, M15.9 - Polyosteoarthritis, unspecified
--- OUTSIDE RECORDS SUMMARY | 2024-09-24 13:08 | XMS_ITS | Clinical Summary ---
Author Organization [facility] [employer] Address [address] [facility] [place] [address] Care Team Providers Care Bill Poster Installer Name Role Phone Pcp, No Primary Care Provider [phone] Social History Tobacco Use Types Packs/Day Years Used Date Smoking Tobacco: Never Assessed Sex and Gender Information Value Date Recorded Sex Assigned at Not on file Legal Sex Male 3:38 PM EST Gender Identity Not on file Sexual Orientation Not on file Plan of Treatment Health Maintenance Due Date Last Done Comments Colorectal Cancer: COLONOSCO PY Screening every 10 yrs (or Modifier) 1955 Depression: Screening Annual ly using PHQ-2/9 in Adults 18 yrs or above (or HM Modifier)([facility]) 12/17/1971 Hepatitis C Virus Infection in Adolescents and Adults: Screening (or Modifier) ([facility]) 12/17/1971 SDVT Screening Reminder: Zulay pelaez for all adults ([facility]) 12/17/1971 Tobacco Smoking Cessation: i n Adults excluding Women: Behavioral and Pharmacotherapy Interventions ([facility]) 12/17/1971 DTaP/Tdap/Td Vaccines ([facility]) (1 - Tdap) 1972 Lipid Screening: Every 5 yrs for Men aged 35+ (or HM Modifier) ([facility]) 1989 Colorectal Cancer Screening 45 -75 Yrs (or HM Modifier ) 1998 Colorectal Cancer: FLEXIBLE SIGMOIDOSCOPY Screening every 5 yrs 1998 Colorectal Cancer: Fecal Imm unochemical Test (FIT) Annually [facility] 1998 Colorectal Cancer: High-sens itivity gFOBT Screening Annually [facility] 1998 Colorectal Cancer: Stool Col oguard Screening every 3 yrs 1998 Colorectal Cancer:CT Colonography Screening every 5 yr s 1998 Pneumococcal Vaccination Scr eening: Patients 50+ yrs of age ([facility]) (1 of 1 - PCV) 12/17/2003 Zoster/Shingles Vaccine Seri es Screening: Adults aged 18+ yrs (or HM Modifiers)([facility]) (1 of 2) 12/17/2003 COVID-19 Vaccine Screening: Initial Series and Booster Status ([facility]) ( - 2023- season) 2024 Flu Vaccination: Ages 65+: Y early High Dose Recommended (or Modifier)([facility]) 12/12/2024 RSV Vaccines (1 - 1-dose 75+ series) 2028 [employer] Not on file Care Teams Bill Poster Installer Relationship Specialty Start Date End Date Pcp, No PCP - General Family Medicine 06/26/21
--- OUTSIDE RECORDS SUMMARY | 2024-09-24 13:09 | XMS_ITS | Patient Health Record ---
Author Organization [facility] Address [address] [place] [address] Care Team Providers Care Solder Sprayer Name Role Phone Markus ESQUIV[facility], [facility] Primary Care Provider Jerry Rivera Jr Unavailable Michele Hernandez Unavailable Unavailable Allergies No Known Allergies Reason For Referral No Information Medications Medication SIG (Take, Route, Frequency, Duration) Notes [...] 20 MG Oral for 90 A ctive Immunizations Vaccine Route Administration Date Status Comme nts Influenza Unknown 02/21/2022 Administered Social History Tobacco Use: Social History Observation Description Date Details (start date - stop date) Never Smoker NA - NA Tobacco Use/Smoking Question Answer Notes Patient is a nonsmoker Alcohol Screen Question Answer Notes Did you have a drink containing alcohol in the p ast year? No Points 0 Interpretation Negative Problems Problem Type SNOMED Code ICD Code Onset Dates Problem Status W/U Status Risk Notes Problem 45698189 Change in bowel function (R19.8) Active confirmed Plan Of Treatment Pending Test Test Name Order Date STOOL WBC 08/09/2022 OVA & PARASITES (O&P) 08/09/2022 GI PANEL 08/09/2022 Insurance Providers Payer Name Payer Address Payer Phone Subscriber Number Group Number Insured Name Patient Relationship to Insured Coverage Start Date Coverage End Date [employer] PPO [address] [place] RODRIGUEZ, ELISHA [phone] [id number] GIOVANNA HENRY Self - patient is the insured Medical (General) History Medical History History ICD Code prostate cancer high blood pressure hypothyroidsim high cholesterol Hemachromatosis Surgical History Surgery Date(Month/Year) 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
== END 2024-09-24 13:59 | disposition home or self-care (01) ==
LOC: HO.HMCC 12:49
PROVIDERS: PCP Internal Medicine; Visit Provider Internal Medicine
DX: I10 Essential (primary) hypertension (principal); C61 Malignant neoplasm of prostate; E66.01 Morbid (severe) obesity due to excess calories; Z68.41 Body mass index [BMI] 40.0-44.9, adult; G56.03 Carpal tunnel syndrome, bilateral upper limbs; E83.118 Other hemochromatosis; E78.9 Disorder of lipoprotein metabolism, unspecified; E03.8 Other specified hypothyroidism; M15.9 Polyosteoarthritis, unspecified; K58.2 Mixed irritable bowel syndrome

== ENCOUNTER → 2024-09-24 12:49 | Outpatient (BNVA) | payer MEDICARE, SELFPAY | PROVIDERS: PCP Internal Medicine; Visit Provider Internal Medicine | DX: I10 Essential (primary) hypertension (principal); G56.03 Carpal tunnel syndrome, bilateral upper limbs; C61 Malignant neoplasm of prostate; E83.118 Other hemochromatosis; E78.9 Disorder of lipoprotein metabolism, unspecified; E03.8 Other specified hypothyroidism; M15.9 Polyosteoarthritis, unspecified; K58.2 Mixed irritable bowel syndrome; E66.01 Morbid (severe) obesity due to excess calories; Z68.41 Body mass index [BMI] 40.0-44.9, adult; Z71.3 Dietary counseling and surveillance | CPT/HCPCS: 96127; 99212 ==

== ENCOUNTER 2024-10-22 11:51 | Outpatient (REF) | payer MEDICARE, SELFPAY ==
[2024-10-22 13:20] LABS: MANUAL DIFF FLAG NO
[2024-10-22 13:23] LABS: Basophils Absolute Auto 0.1 X10*3/uL (0.0-0.2); Basophils Percent Auto 0.8 % (0-2); Eosinophils Absolute Auto 0.1 X10*3/uL (0.0-0.4); Eosinophils Percent Auto 1.5 % (0-4); Hematocrit 42.8 % (42.0-52.0); Hemoglobin 14.4 g/dl (14.0-18.0); Imm Gran Abs Auto 0.03 X10*3/uL (0.00-0.03); Imm Gran Pct Auto 0.3 % (0.0-0.4); Lymphocytes Absolute Auto 2.1 X10*3/uL (1.2-4.9); Lymphocytes Percent Auto 23.5 % (20-40); Mean Corpuscular HGB Conc 33.6 g/dl (31.0-36.0); Mean Corpuscular Hemoglobin 28.9 pg (27.0-33.0); Mean Corpuscular Volume 85.8 fL (80.0-98.0); Mean Platelet Volume 11.1 fL (9.4-12.4); Monocytes Absolute Auto 0.5 X10*3/uL (0.1-1.2); Monocytes Percent Auto 5.5 % (2-11); Neutrophils Percent Auto 68.4 % (45-73); Platelet Count 258 X10*3/uL (160-400); Red Blood Count 4.99 X10*6/uL (4.60-5.80); Red Cell Distribution Width 14.2 % (11.0-16.0); White Blood Count 8.7 X10*3/uL (4.8-10.8)
--- OUTSIDE RECORDS SUMMARY | 2024-10-22 13:34 | XMS_ITS | Clinical Summary ---
Author Organization [facility] [employer] Address [address] [facility] [address] Care Team Providers Care Political Advisor Name Role Phone Pcp, No Primary Care Provider [phone] Social History Tobacco Use Types Packs/Day Years [...] Adults 18 yrs or above (or HM Modifier)([facility]) 12/17/1971 Hepatitis C Virus Infection in Adolescents and Adults: Screening (or Modifier) ([facility]) 12/17/1971 SDIN Screening Reminder: Zulay pelaez for all adults ([facility]) 12/17/1971 Tobacco Smoking Cessation: i n Adults excluding Women: Behavioral and Pharmacotherapy Interventions ([facility]) 12/17/1971 DTaP/Tdap/Td Vaccines ([facility]) (1 - Tdap) 1972 Colorectal Cancer Screening 45 -75 Yrs (or HM Modifier ) 1998 Colorectal Cancer: FLEXIBLE SIGMOIDOSCOPY Screening every 5 yrs 1998 Colorectal Cancer: Fecal Imm unochemical Test (FIT) Annually [facility] 1998 Colorectal Cancer: High-sens itivity gFOBT Screening Annually [facility] 1998 Colorectal Cancer: Stool Col oguard Screening every 3 yrs 1998 Colorectal Cancer:CT Colonography Screening every 5 yr s 1998 Pneumococcal Vaccination Scr eening: Patients 50+ yrs of age ([facility]) (1 of 1 - PCV) 12/17/2003 Zoster/Shingles Vaccine Seri es Screening: Adults aged 18+ yrs (or HM Modifiers)([facility]) (1 of 2) 12/17/2003 COVID-19 Vaccine Screening: Initial Series and Booster Status ([facility]) (2023- season) 2024 Flu Vaccination: Ages 65+: Y early High Dose Recommended (or Modifier)([facility]) 12/12/2024 RSV Vaccines (1 - 1-dose 75+ series) 2028 [employer] Not on file Care Teams Political Advisor Relationship Specialty Start Date End Date Pcp, No PCP - General Family Medicine 06/26/21
== END 2024-10-22 11:52 | disposition home or self-care (01) ==
LOC: HO.HMGCLDS 11:51
PROVIDERS: PCP Internal Medicine; Visit Provider Internal Medicine Medical Oncology
DX: C61 Malignant neoplasm of prostate (principal)
CPT/HCPCS: 36415; 85025

== ENCOUNTER 2024-11-18 10:13 | Outpatient (REF) | payer MEDICARE, SELFPAY ==
--- NOTE | 2024-11-18 10:16 | EMG_ITS ---
Bilateral median and ulnar motor and sensory studies were performed. Bilateral radial sensory studies were performed and needle examination was performed. IMPRESSION: 1. 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 2. Moderate left median neuropathy in the arm suggestive of demyelinating lesion. 3. Mild bilateral ulnar neuropathy across cubital tunnel. Please see the attached neurophysiology data M MD OTILIA Lake/MODL / [id number] MTDD
--- OUTSIDE RECORDS SUMMARY | 2024-11-18 11:01 | XMS_ITS | Patient Health Record ---
Author Organization [facility] Address [address] [place] [id number] Care Team Providers Care Security Door Installer Name Role Phone Markus ESQUIVEL, [facility] Primary Care Provider Jerry Rivera Jr Unavailable [...] Problem Status W/U Status Risk Notes Problem [id number] Change in bowel function (R19.8) Active confirmed Plan Of Treatment Pending Test Test Name Order Date STOOL WBC 08/09/2022 OVA & PARASITES (O&P) 08/09/2022 GI PANEL 08/09/2022 Insurance Providers Payer Name Payer Address Payer Phone Subscriber Number Group Number Insured Name Patient Relationship to Insured Coverage Start Date Coverage End Date Cigna PPO [address] NAA RODRIGUEZ, ELISHA [phone] [id number] GIOVANNA HENRY Self - patient is the insured Medical (General) History Medical History History ICD Code prostate cancer high blood pressure hypothyroidsim high cholesterol Hemachromatosis Surgical History Surgery Date(Month/Year) 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
--- OUTSIDE RECORDS SUMMARY | 2024-11-18 11:01 | XMS_ITS | Clinical Summary ---
Author Organization [facility] [employer] Address [address] [facility] [place] [address] Care Team Providers Care Journal Box Inspector Name Role Phone Pcp, No Primary Care Provider [phone] Social History Tobacco Use Types Packs/Day Years [...] Adults 18 yrs or above (or HM Modifier)([facility]) 12/17/1971 Hepatitis C Virus Infection in Adolescents and Adults: Screening (or Modifier) ([facility]) 12/17/1971 SDMD Screening Reminder: Zulay pelaez for all adults ([facility]) 12/17/1971 Tobacco Smoking Cessation: i n Adults excluding Women: Behavioral and Pharmacotherapy Interventions ([facility]) 12/17/1971 DTaP/Tdap/Td Vaccines ([facility]) (1 - Tdap) 1972 Colorectal Cancer Screening 45 -75 Yrs (or HM Modifier ) 1998 Colorectal Cancer: FLEXIBLE SIGMOIDOSCOPY Screening every 5 yrs 1998 Colorectal Cancer: Fecal Imm unochemical Test (FIT) Annually [facility] 1998 Colorectal Cancer: High-sens itivity gFOBT Screening Annually [facility] 1998 Colorectal Cancer: Stool Col oguard Screening every 3 yrs 1998 Colorectal Cancer:CT Colonography Screening every 5 yr s 1998 Pneumococcal Vaccination Scr eening: Patients 50+ yrs of age ([facility]) (1 of 1 - PCV) 12/17/2003 Zoster/Shingles Vaccine Seri es Screening: Adults aged 18+ yrs (or HM Modifiers)([facility]) (1 of 2) 12/17/2003 COVID-19 Vaccine Screening: Initial Series and Booster Status ([facility]) (2023- season) 2024 Flu Vaccination: Ages 65+: Y early High Dose Recommended (or Modifier)([facility]) 12/12/2024 RSV Vaccines (1 - 1-dose 75+ series) 2028 Medical Devices Not on file Care Teams Journal Box Inspector Relationship Specialty Start Date End Date Pcp, No PCP - General Family Medicine 06/26/21
== END 2024-11-18 10:14 | disposition home or self-care (01) ==
LOC: HO.NEURO 10:13
PROVIDERS: PCP Internal Medicine; Visit Provider Internal Medicine
DX: G56.03 Carpal tunnel syndrome, bilateral upper limbs (principal)
CPT/HCPCS: 95886; 95911

== ENCOUNTER → 2024-11-18 10:16 | Outpatient (BNV) | payer MEDICARE, SELFPAY | PROVIDERS: PCP Internal Medicine; Visit Provider Psychiatry & Neurology Neurology | DX: G56.03 Carpal tunnel syndrome, bilateral upper limbs (principal); G56.12 Other lesions of median nerve, left upper limb; G56.23 Lesion of ulnar nerve, bilateral upper limbs | CPT/HCPCS: 95886; 95911 ==

== ENCOUNTER 2024-11-20 08:23 | Outpatient (AMB) | payer MEDICARE, SELFPAY ==
--- OUTSIDE RECORDS SUMMARY | 2024-11-20 08:34 | XMS_ITS | Patient Health Record ---
Author Organization [facility] Address [address] [place] [phone] Care Team Providers Care Chief Of Safety And Protection Name Role Phone Markus ESQUIVEL, [facility] Primary Care Provider Jerry Rivera Jr Unavailable [...] Problem Status W/U Status Risk Notes Problem [id number] Change in bowel function (R19.8) Active confirmed Plan Of Treatment Pending Test Test Name Order Date STOOL WBC 08/09/2022 OVA & PARASITES (O&P) 08/09/2022 GI PANEL 08/09/2022 Insurance Providers Payer Name Payer Address Payer Phone Subscriber Number Group Number Insured Name Patient Relationship to Insured Coverage Start Date Coverage End Date Cigna PPO [address] NAA RODRIGUEZ, ELISHA [phone] [id number] GIOVANNA HENRY Self - patient is the insured Medical (General) History Medical History History ICD Code prostate cancer high blood pressure hypothyroidsim high cholesterol Hemachromatosis Surgical History Surgery Date(Month/Year) 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
--- OUTSIDE RECORDS SUMMARY | 2024-11-20 08:34 | XMS_ITS | Clinical Summary ---
Author Organization [facility] [employer] Document Preparation Address [address] [facility] [place] [address] Care Team Providers Care Proprietary Trader Name Role Phone Pcp, No Primary Care Provider [phone] Social History Tobacco Use Types Packs/Day Years [...] Adults 18 yrs or above (or HM Modifier)([facility]) 12/17/1971 Hepatitis C Virus Infection in Adolescents and Adults: Screening (or Modifier) ([facility]) 12/17/1971 SDMD Screening Reminder: Zulay pelaez for all adults ([facility]) 12/17/1971 Tobacco Smoking Cessation: i n Adults excluding Women: Behavioral and Pharmacotherapy Interventions ([facility]) 12/17/1971 DTaP/Tdap/Td Vaccines ([facility]) (1 - Tdap) 1972 Colorectal Cancer Screening 45 -75 Yrs (or HM Modifier ) 1998 Colorectal Cancer: FLEXIBLE SIGMOIDOSCOPY Screening every 5 yrs 1998 Colorectal Cancer: Fecal Imm unochemical Test (FIT) Annually [facility] 1998 Colorectal Cancer: High-sens itivity gFOBT Screening Annually [facility] 1998 Colorectal Cancer: Stool Col oguard Screening every 3 yrs 1998 Colorectal Cancer:CT Colonography Screening every 5 yr s 1998 Pneumococcal Vaccination Scr eening: Patients 50+ yrs of age ([facility]) (1 of 1 - PCV) 12/17/2003 Zoster/Shingles Vaccine Seri es Screening: Adults aged 18+ yrs (or HM Modifiers)([facility]) (1 of 2) 12/17/2003 COVID-19 Vaccine Screening: Initial Series and Booster Status ([facility]) (2023- season) 2024 Flu Vaccination: Ages 65+: Y early High Dose Recommended (or Modifier)([facility]) 12/12/2024 RSV Vaccines (1 - 1-dose 75+ series) 2028 Medical Devices Not on file Care Teams Proprietary Trader Relationship Specialty Start Date End Date Pcp, No PCP - General Family Medicine 06/26/21
--- NOTE | 2024-11-20 09:43 | A.OFFPC_ITS ---
Intake Visit Reasons: conduction study Allergies No Known Allergies (No Known Allergies*) Allergy (Verified 11/18/24 09:05) Medication List - Last Reconciled 11/20/24 by Bryan Aparicio MD atenolol 25 mg PO DAILY 90 days cholecalciferol (vitamin D3) 25 mcg PO DAILY cyclobenzaprine 5 mg PO BEDTIME 30 days finasteride 5 mg PO 3XW levothyroxine 150 mcg PO QAM losartan-hydrochlorothiazide 100-25 mg 1 tab PO DAILY 30 days lovastatin 20 mg PO DAILY tamsulosin 0.4 mg PO DAILY 90 days Tobacco use date assessed: 09/24/24 Dental Screening Dental Screen Date: 09/24/24 HPI conduction study HPI Details History - The patient is a 68-year-old male pres enting with symptoms related to carpal tunnel syndrome. - The patient reports persistent symptom s affecting both arms, despite previous interventions. - Symptoms include moderately severe rig ht and left carpal tunnel syndrome identified in recent nerve conduction studies. - Additionally, mild bilateral ulnar ck ropathy across the cubital tunnel was noted. - Symptoms commenced prior to the recent nerve conduction study and have been bothersome, prompting the consultation. - Patient indicates a possible habitual behavior of resting elbows on surfaces, likely contributing to the ulnar nerve issue. - The symptoms have not resolved and con tinue to impact the patient's daily functions. Social History: - The patient resides in [facility] potential travel concerns for medical appointments given geographical constraints. Diagnostic Results: - Nerve conduction study results reveale d moderately severe bilateral carpal tunnel syndrome. - Mild bilateral ulnar neuropathy across cubital tunnels was also identified. Problem List - Carpal Tunnel Syndrome - Ulnar Neuropathy Patient Instructions - Consult with a specialist for further evaluation and potential treatment options. - Consider cortisone injection as an ini tial treatment approach for carpal tunnel syndrome. - Prepare for potential surgical interve ntion down the road if symptoms persist. - Avoid resting elbows on hard surfaces to prevent exacerbating ulnar neuropathy. Review of Systems - General: No fever no chills - Neurological: No headaches no dizziness - Ear nose throat: No sore throat no hearing difficulty no ear pain - Cardiovascular: No syncope, no chest pain, no palpitations - Gastrointestinal: No nausea vomiting or diarrhea [facility] Medical History Elevated PSA Urge incontinence Surgical History Hx of tonsillectomy Family History Brother Diabetes Maternal Grandmother Asthma Father Heart disease Mother Varicose veins of both lower extremities with pain Other Hypertension Social History Household Members: Family Housing: Apartment Are you a primary manager managed care to a significant other at home: No Do you presently have visiting nurse or other home services: No Alcohol intake: current Alcohol intake frequency: holidays/special occasions only Patient Tobacco Use Status: Former Tobacco user e-Cigarette/Vaping Use: Never Used Second Hand Smoke Exposure: Yes service: No Current occupational status: employed Current occupational exposures/hazards: No Cognitive needs: No Hearing needs: No Vision needs: Yes (wears glasses) Questionnaire Thrive Questionnaire Date Thrive assessed: 09/24/24 SYLVIA-7 AMB Questionnaire SYLVIA-7 Date SYLVIA - 7 assessed: 09/24/24 Source: Developed by Drs. Damaso Reyna, Carmen Myers, Samuel Cardoso and colleagues, with an educational concepcion from [employer]. Physical exam (Primary Care) Tobacco/Smoking Status: Tobacco use Status Tobacco use date assessed 09/24/24 11/20/24 09:43 Patient Tobacco Use Status Former Tobacco user 11/20/24 09:43 e-Cigarette/Vaping Use Never Used 11/20/24 09:43 Thrive Assessment: Date of Thrive Assessment Date Thrive assessed 09/24/24 11/20/24 09:43 Telehealth Telehealth Telehealth Platform: [facility] Location of provider rendering services: practice address Location of patient: address on file Patient Identification confirmed using: Name, : Yes Telehealth method: voice only Patient verbally consented to treatment: Yes Patient verbally consented to billing insurance company: Yes Patient informed of any privacy concerns related to visit: Yes Minutes spent on Phone/Video with Pt.: 13 Coding Level of Care Code Tele Est Pt Level 3 (49194) Diagnoses Carpal tunnel syndrome, bilateral G56.03 Assessment & Plan Assessment & Plan (1) Carpal tunnel syndrome, bilateral: Code(s): G56.03 - Carpal tunnel syndrome, bilateral upper limbs Category: Medical Plan History - The patient is a 68-year-old male presenting with symptoms related to carpal tunnel syndrome. - The patient reports persistent symptoms affecting both arms, despite previous interventions. - Symptoms include moderately severe right and left carpal tunnel syndrome identified in recent nerve conduction studies. - Additionally, mild bilateral ulnar neuropathy across the cubital tunnel was noted. - Symptoms commenced prior to the recent nerve conduction study and have been bothersome, prompting the consultation. - Patient indicates a possible habitual behavior of resting elbows on surfaces, likely contributing to the ulnar nerve issue. - The symptoms have not resolved and continue to impact the patient's daily functions. Social History: - The patient resides in [place], indicating potential travel concerns for medical appointments given geographical constraints. Diagnostic Results: - Nerve conduction study results revealed moderately severe bilateral carpal tunnel syndrome. - Mild bilateral ulnar neuropathy across cubital tunnels was also identified. Problem List - Carpal Tunnel Syndrome - Ulnar Neuropathy Patient Instructions - Consult with a specialist for further evaluation and potential treatment options. - Consider cortisone injection as an initial treatment approach for carpal tunnel syndrome. - Prepare for potential surgical intervention down the road if symptoms persist. - Avoid resting elbows on hard surfaces to prevent exacerbating ulnar neuropathy. Orders: Referrals 2 Hand Surgery Referral G56.03 - Carpal tunnel syndrome, bilateral upper limbs
== END 2024-11-20 09:58 | disposition home or self-care (01) ==
LOC: HO.HMCC 08:23
PROVIDERS: PCP Internal Medicine; Visit Provider Internal Medicine
DX: G56.03 Carpal tunnel syndrome, bilateral upper limbs (principal)

== ENCOUNTER 2024-11-28 12:24 | Outpatient (AMB) | payer MEDICARE, SELFPAY ==
--- NOTE | 2024-11-28 12:24 | A.OFFVIS_ITS ---
Intake Visit Reasons: 6m/PSA(psa?) Intake Note: Patient is present for 6M/PSA Urology Medication:TAMSULOSIN, FINASTERIDE Antibiotic Allergy:NONE Blood Thinner:NONE Soda Flaker Required: No Allergies No Known Allergies (No Known Allergies*) Allergy (Verified 11/28/24 12:26) HPI Comments Details: Alonso is a pleasant male. He is a patient of Dr. Aparicio. He is seen for the following urologic conditions - prostate cancer - lower urinary tract symptoms Telemedicine Evaluation 15 min Consultation [employer] Six-month follow-up Taking PSA every other day Slight rise in PSA - Remains on finasteride and tamsulosin for lower urinary tract symptoms Post void dribbling resolved with exercises Continue 6m f/u Check PSA and MRI Prostate cancer 2013, repeat biopsy 202122 grade group 1 Initial diagnosis a number of years ago he is unsure of the Dana score PSA at time of diagnosis in the 8 range Elected for active surveillance - previously has considered cryotherapy PSA - 01/01 6.9 18%, 03/03 4.35 16%, 08/02 2.5, 10/02 28, 12/02 4.8, 02/02 3.9, 06/05 3.3, 12/03 2.6, 06/06 2.7, 12/04 2.9, 06/07 2.6, 12/05 3.9 Imaging - 02/01 MRI 90 g prostate, posterior right paramedian 1.1 cm PI-RADS 4 lesion apex-mid Repeat biopsy 10/02 - 06/25 cores positive Gl 3+3 - 5%, 30% RML, RBM 60 g on ultrasound pT1c Prolaris genetic evaluation 10/02 - active surveillance group - DSM 2.1 Lower urinary tract symptoms Ongoing weakness of stream Good response to tamsulosin and finasteride Minimal side effects PFSH Medical History Elevated PSA Urge incontinence Surgical History Hx of tonsillectomy Family History Brother Diabetes Maternal Grandmother Asthma Father Heart disease Mother Varicose veins of both lower extremities with pain Other Hypertension Social History Household Members: Family Housing: Apartment Are you a primary critical care specialist to a significant other at home: No Do you presently have visiting nurse or other home services: No Alcohol intake: current Alcohol intake frequency: holidays/special occasions only Patient Tobacco Use Status: Former Tobacco user e-Cigarette/Vaping Use: Never Used Second Hand Smoke Exposure: Yes service: No Current occupational status: employed Current occupational exposures/hazards: No Cognitive needs: No Hearing needs: No Vision needs: Yes (wears glasses) Review of Systems Const All systems reviewed & are unremarkable except as noted in HPI and below Reports no additional complaints Resp Reports no additional complaints GI Reports no additional complaints Reports as per HPI Musc Reports no additional complaints Physical Exam Telemedicine evaluation Appropriate responses Regular breathing rate and rhythm HEENT Head: Yes normal to inspection Ears: hearing grossly normal bilaterally Eyes General: appearance normal, both eyes and all related structures Neck Neck: Yes normal visual inspection Chest Chest palpation & inspection: normal inspection of the chest Resp Effort & Inspection: normal respiratory effort and able to speak in complete sentences Telehealth Telehealth Telehealth Platform: [employer] Location of provider rendering services: practice address Location of patient: address on file Patient Identification confirmed using: Name, : Yes Telehealth method: video Patient verbally consented to treatment: Yes Patient verbally consented to billing insurance company: Yes Patient informed of any privacy concerns related to visit: Yes Assessment & Plan Assessment & Plan (1) Prostate cancer: Comment: 2013 g prostate - Bx 202122 Grade Group 1 - Prolaris group Code(s): C61 - Malignant neoplasm of prostate Category: Medical (2) BPH w urinary obs/LUTS: Code(s): N40.1 - Benign prostatic hyperplasia with lower urinary tract symptoms; N13.8 - Other obstructive and reflux uropathy Category: Medical Plan Six-month follow-up check PSA and MRI Increase finasteride to 4 times per week Orders: Orders MR Prostate wo/w con 6 Months C61 - Malignant neoplasm of prostate Prostate Specific Antigen 6 Months C61 - Malignant neoplasm of prostate Patient Instructions: This note is constructed using voice recognition software. While every effort has been made to ensure accuracy heating and ventilating worker errors may have been included. Imaging studies, laboratory and physical exam results were discussed and reviewed in detail. No major barriers to patient understanding were identified. An opportunity to ask questions regarding the treatment plan was provided. All questions were answered. The patient expressed understanding and agreement with the above treatment plan. The patient is aware they should contact our office by phone for worsening of their current condition or the appearance of new urologic symptoms. Compliance is encouraged with any medications and followup testing that is ordered. It is a privilege to participate in the urologic care of your patient. If you have any questions or concerns regarding treatment for the above conditions, or other urologic issues, please do not hesitate to contact me. The office telephone contact is [phone]. Sincerely, Dr Paco Lira MD, [facility] - Urology Compassionate Specialist Care for the Genitourinary System Coding Level of Care Code Tele Est Pt Level 3 (17960) Complex EM visit Add On G2211 Diagnoses Prostate cancer C61 BPH w urinary obs/LUTS N40.1; N13.8
--- OUTSIDE RECORDS SUMMARY | 2024-11-28 12:25 | XMS_ITS | Clinical Summary ---
Author Organization [facility] [employer] Address [address] [facility] [place] [address] Care Team Providers Care Hydrography Teacher Name Role Phone Pcp, No Primary Care Provider [phone] Social History Tobacco Use Types Packs/Day Years [...] Adults 18 yrs or above (or HM Modifier)([facility]) 12/17/1971 Hepatitis C Virus Infection in Adolescents and Adults: Screening (or Modifier) ([facility]) 12/17/1971 SDWA Screening Reminder: Zulay pelaez for all adults ([facility]) 12/17/1971 Tobacco Smoking Cessation: i n Adults excluding Women: Behavioral and Pharmacotherapy Interventions ([facility]) 12/17/1971 DTaP/Tdap/Td Vaccines ([facility]) (1 - Tdap) 1972 Colorectal Cancer Screening 45 -75 Yrs (or HM Modifier ) 1998 Colorectal Cancer: FLEXIBLE SIGMOIDOSCOPY Screening every 5 yrs 1998 Colorectal Cancer: Fecal Imm unochemical Test (FIT) Annually [facility] 1998 Colorectal Cancer: High-sens itivity gFOBT Screening Annually [facility] 1998 Colorectal Cancer: Stool Col oguard Screening every 3 yrs 1998 Colorectal Cancer:CT Colonography Screening every 5 yr s 1998 Pneumococcal Vaccination Scr eening: Patients 50+ yrs of age ([facility]) (1 of 1 - PCV) 12/17/2003 Zoster/Shingles Vaccine Seri es Screening: Adults aged 18+ yrs (or HM Modifiers)([facility]) (1 of 2) 12/17/2003 COVID-19 Vaccine Screening: Initial Series and Booster Status ([facility]) (2023- season) 2024 Flu Vaccination: Ages 65+: Y early High Dose Recommended (or Modifier)([facility]) 12/12/2024 RSV Vaccines (1 - 1-dose 75+ series) 2028 Medical Devices Not on file Care Teams Hydrography Teacher Relationship Specialty Start Date End Date Pcp, No PCP - General Family Medicine 06/26/21
--- OUTSIDE RECORDS SUMMARY | 2024-11-28 12:25 | XMS_ITS | Patient Health Record ---
Author Organization [facility] Address [address] [place] [id number] Care Team Providers Care Auto Rebuilder Name Role Phone Markus ESQUIVEL, [facility] [...] Problem Status W/U Status Risk Notes Problem [id number] Change in bowel function (R19.8) Active confirmed Plan Of Treatment Pending Test Test Name Order Date STOOL WBC 08/09/2022 OVA & PARASITES (O&P) 08/09/2022 GI PANEL 08/09/2022 Insurance Providers Payer Name Payer Address Payer Phone Subscriber Number Group Number Insured Name Patient Relationship to Insured Coverage Start Date Coverage End Date Cigna PPO [address] NAA RODRIGUEZ, ELISHA [phone] [id number] GIOVANNA HENRY Self - patient is the insured Medical (General) History Medical History History ICD Code prostate cancer high blood pressure hypothyroidsim high cholesterol Hemachromatosis Surgical History Surgery Date(Month/Year) 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
== END 2024-11-28 13:23 | disposition home or self-care (01) ==
LOC: HO.HUSH 12:24
PROVIDERS: PCP Internal Medicine; Visit Provider Urology
DX: C61 Malignant neoplasm of prostate (principal); N40.1 Benign prostatic hyperplasia with lower urinary tract symptoms; N13.8 Other obstructive and reflux uropathy
CPT/HCPCS: 99213; G2211

== ENCOUNTER 2024-12-23 13:14 | Outpatient (AMB) | payer MEDICARE, SELFPAY ==
[2024-12-23 13:34] VITALS: BMI 40.4
--- NOTE | 2024-12-23 13:34 | MHC.OFFVIS ---
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 Patient reports symptoms are worse on the right index & right middle finger, primarily at the DIP, occurring daily, on and off. He has been using braces at night with some relief. Has not tried OT or injections. Denies finger locking. Denies previous injuries or surgeries to the hands. 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 Patient reports symptoms are worse on the right index & right middle finger, primarily at the DIP, occurring daily, on and off. He has been using braces at night with some relief. Has not tried OT or injections. Denies finger locking. Denies previous injuries or surgeries to the hands. [facility] Medical History Elevated PSA Urge incontinence Surgical History (Updated 12/23/24 @ 13:38 by ROSENDA Jolley) History of knee surgery Hx of tonsillectomy Family History Brother Diabetes Maternal Grandmother Asthma Father Heart disease Mother Varicose veins of both lower extremities with pain Other Hypertension Social History (Updated 12/23/24 @ 13:38 by ROSENDA Jolley) Household Members: Family Housing: Apartment Are you a primary resident care coordinator to a significant other at home: No Do you presently have visiting nurse or other home services: No Alcohol intake: current Alcohol intake frequency: holidays/special occasions only Patient Tobacco Use Status: Former Tobacco user Tobacco use type: Cigar e-Cigarette/Vaping Use: Never Used Second Hand Smoke Exposure: Yes service: No Current occupational status: employed Current occupational exposures/hazards: No Cognitive needs: No Hearing needs: No Vision needs: Yes (wears glasses) Review of Systems Const All systems reviewed & are unremarkable except as noted in HPI and below Physical Exam Vital Signs: BMI result Body Mass Index 40.4 Extrem Other: Neuro: Normal sensation of the tips of all digits of bilateral hands in the office today No thenar or intrinsic wasting. Good APB muscle firing and good finger cross. Vascular: Capillary refill brisk. ROM: Patient can make a fist and extend all their digits. Skin: No lacerations or abrasions noted. General: No ecchymosis. No erythema or evidence of infection. Results Reviewed Results Reviewed: IMPRESSION: 1. 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 2. Moderate left median neuropathy in the arm suggestive of demyelinating lesion. 3. Mild bilateral ulnar neuropathy across cubital tunnel. Please see the attached neurophysiology data M Figueroa Aparicio MD MZK/MODL Assessment & Plan Assessment & Plan (1) Carpal tunnel syndrome, bilateral: Code(s): G56.03 - Carpal tunnel syndrome, bilateral upper limbs Category: Medical Plan 1. Bilateral carpal tunnel syndrome Symptoms intermittent, daily, worse at night Patient is educated about this condition Patient is educated about the treatment options available, namely surgical intervention At this time, patient states he would like to have some time to think about any potential surgical intervention prior to signing up Patient is educated that while injections can help with symptom management, they do not help the underlying condition, and this will likely continue to worsened without surgical intervention Patient states understanding of this and is amenable to this plan Patient will call with his decision whether he would like to get signed up for surgical intervention, may follow-up at that time, sooner with any acute concerns Coding Level of Care Code Est Pt Level 3 (14107) Diagnoses Carpal tunnel syndrome, bilateral G56.03
--- OUTSIDE RECORDS SUMMARY | 2024-12-23 14:03 | XMS_ITS | Patient Health Record ---
Author Organization [facility] Address [address] [place] [address] Care Team Providers Care Consulting Sme Name Role Phone Markus ESQUIVEL, [facility] Primary Care Provider Jerry Rivera Jr Unavailable [phone] Michele Hernandez Unavailable Unavailable Allergies No Known [...] Problem Status W/U Status Risk Notes Problem [id number] Change in bowel function (R19.8) Active confirmed Plan Of Treatment Pending Test Test Name Order Date STOOL WBC 08/09/2022 OVA & PARASITES (O&P) 08/09/2022 GI PANEL 08/09/2022 Insurance Providers Payer Name Payer Address Payer Phone Subscriber Number Group Number Insured Name Patient Relationship to Insured Coverage Start Date Coverage End Date [employer] PPO [address] NAA RODRIGUEZ, ELISHA [phone] [id number] GIOVANNA HENRY Self - patient is the insured Medical (General) History Medical History History ICD Code prostate cancer high blood pressure hypothyroidsim high cholesterol Hemachromatosis Surgical History Surgery Date(Month/Year) 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
--- OUTSIDE RECORDS SUMMARY | 2024-12-23 14:03 | XMS_ITS | Clinical Summary ---
Author Organization [facility] [employer] Address [address] [facility] [place] [address] Care Team Providers Care Special Education Teaching Assistant Name Role Phone Pcp, No Primary Care Provider [phone] Social History Tobacco Use Types Packs/Day Years [...] Adults 18 yrs or above (or HM Modifier)([facility]) 12/17/1971 Hepatitis C Virus Infection in Adolescents and Adults: Screening (or Modifier) ([facility]) 12/17/1971 SDOK Screening Reminder: Zulay pelaez for all adults ([facility]) 12/17/1971 Tobacco Smoking Cessation: i n Adults excluding Women: Behavioral and Pharmacotherapy Interventions ([facility]) 12/17/1971 DTaP/Tdap/Td Vaccines ([facility]) (1 - Tdap) 1972 Colorectal Cancer Screening 45 -75 Yrs (or HM Modifier ) 1998 Colorectal Cancer: FLEXIBLE SIGMOIDOSCOPY Screening every 5 yrs 1998 Colorectal Cancer: Fecal Imm unochemical Test (FIT) Annually [facility] 1998 Colorectal Cancer: High-sens itivity gFOBT Screening Annually [facility] 1998 Colorectal Cancer: Stool Col oguard Screening every 3 yrs 1998 Colorectal Cancer:CT Colonography Screening every 5 yr s 1998 Pneumococcal Vaccination Scr eening: Patients 50+ yrs of age ([facility]) (1 of 1 - PCV) 12/17/2003 Zoster/Shingles Vaccine Seri es Screening: Adults aged 18+ yrs (or HM Modifiers)([facility]) (1 of 2) 12/17/2003 COVID-19 Vaccine Screening: Initial Series and Booster Status ([facility]) (2023- season) 2024 Flu Vaccination: Ages 65+: Y early High Dose Recommended (or Modifier)([facility]) 12/12/2024 RSV Vaccines (1 - 1-dose 75+ series) 2028 [employer] Not on file Care Teams Special Education Teaching Assistant Relationship Specialty Start Date End Date Pcp, No PCP - General Family Medicine 06/26/21
== END 2024-12-23 13:59 | disposition home or self-care (01) ==
LOC: HO.HOS 13:15
PROVIDERS: PCP Internal Medicine
DX: G56.03 Carpal tunnel syndrome, bilateral upper limbs (principal)
CPT/HCPCS: 99213

== ENCOUNTER → 2024-12-23 13:14 | Outpatient (BNVA) | payer MEDICARE, SELFPAY | PROVIDERS: PCP Internal Medicine | DX: G56.03 Carpal tunnel syndrome, bilateral upper limbs (principal) | CPT/HCPCS: 99212 ==

== ENCOUNTER 2025-03-26 06:29 | Outpatient (REF) | payer MEDICARE, SELFPAY ==
--- OUTSIDE RECORDS SUMMARY | 2025-03-26 06:33 | XMS_ITS | Patient Health Record ---
Author Organization [facility] Address [address] [place] [address] Care Team Providers Care Machine Setup Operator Name Role Phone Markus [facility]EL, [facility] Primary Care Provider Jerry Rivera Jr Unavailable [phone] Michele Hernandez Unavailable Unavailable Allergies No Known Allergies Reason For Referral No Information Medications Medication SIG (Take, Route, Frequency, Duration) Notes Start Date End Date Status Losartan Potassium-HCTZ 100-25 MG Oral; Duration: 90 Active Tamsulosin HCl 0.4 MG Oral; Duration: 90 Active Atenolol 25 MG Oral; Duration: 30 Active Vitamin D (Cholecalciferol) 25 MCG (1000 UT) 1 capsule Orally Once a day; Duration: 30 day(s) 08/09/2022 Active Finasteride 5 MG Oral; Duration: 90 Active Levothyroxine Sodium 175 MCG Oral; Duration: 90 Active Lovastatin 20 MG Oral; Duration: 90 Active Immunizations Vaccine Route Administration Date Status Comme [...] Problem Status W/U Status Risk Notes Problem Altered bowel function ([id number]) Change in bowel function (R19.8) Active confirmed Plan Of Treatment Pending Test Test Name Order Date STOOL WBC 08/09/2022 OVA & PARASITES (O&P) 08/09/2022 GI PANEL 08/09/2022 Insurance Providers Payer Name Payer Address Payer Phone Subscriber Number Group Number Insured Name Patient Relationship to Insured Coverage Start Date Coverage End Date [facility] [address] NAA RODRIGUEZ, ELISHA [phone] [id number] GIOVANNA HENRY Self - patient is the insured Medical (General) History Medical History History ICD Code prostate cancer high blood pressure hypothyroidsim high cholesterol Hemachromatosis Surgical History Surgery Date(Month/Year) 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
[2025-03-26 10:31] LABS: MANUAL DIFF FLAG NO
[2025-03-26 10:39] LABS: Hematocrit 44.8 % (42.0-52.0); Hemoglobin 14.9 g/dl (14.0-18.0); Imm Gran Abs Auto 0.03 X10*3/uL (0.00-0.03); Imm Gran Pct Auto 0.4 % (0.0-0.4); Lymphocytes Absolute Auto 2.1 X10*3/uL (1.2-4.9); Mean Corpuscular HGB Conc 33.3 g/dl (31.0-36.0); Mean Corpuscular Hemoglobin 29.0 pg (27.0-33.0); Mean Corpuscular Volume 87.2 fL (80.0-98.0); NRBC Abs Auto 0.000 X10*3/uL (0.0-0.012); NRBC Pct Auto 0.0 /100WBC (0.0-0.2); Platelet Count 279 X10*3/uL (160-400); Red Blood Count 5.14 X10*6/uL (4.60-5.80); White Blood Count 8.5 X10*3/uL (4.8-10.8)
[2025-03-26 10:51] LABS: Appearance Urine Clear; Glucose Urine UA Negative (Negative); PH 6.0 (5.0-9.0); Specific Gravity - Urine 1.010 (1.005-1.025); UMIC TRIGGER UACC YES
[2025-03-26 10:58] LABS: UACC Culture Trigger YES
[2025-03-26 11:18] LABS: Alanine Aminotransferase 47 U/L (0-40); Albumin Level 4.2 g/dL (3.5-5.0); Alkaline Phosphatase 82 U/L (39-117); Anion Gap 13 (12-20); Aspartate Amino Transferase 44 U/L (5-37); Blood Urea Nitrogen 17 mg/dL (9-16); Calcium 9.6 mg/dL (8.4-10.2); Carbon Dioxide 26 mmol/L (22-29); Chloride 104 mmol/L (96-108); Cholesterol 135 mg/dL (<200); Estimated Glomerular Filt Rate > 60; HDL Cholesterol 33 mg/dL (>40); Potassium 3.7 mmol/L (3.3-5.1); Sodium 139 mmol/L (135-145); Total Protein 7.8 g/dL (6.5-8.0); Triglycerides 145 mg/dL (<150)
[2025-03-26 11:44] LABS: Prostate Specific Antigen 3.03 ng/mL (<0.05-4.0); Vitamin B12 427 pg/mL (200-900)
[2025-03-26 13:04] LABS: Free T4 (Free Thyroxine) 1.11 ng/dL (0.71-1.85)
[2025-04-02 06:59] LABS: Vitamin D 25-OH, D2 <4 ng/mL; Vitamin D 25-OH, D3 28 ng/mL; Vitamin D 25-OH, Total 28 ng/mL (30-100)
== END 2025-03-26 06:30 | disposition home or self-care (01) ==
LOC: HO.HMGCLDS 06:29
PROVIDERS: PCP Internal Medicine; Visit Provider Internal Medicine
DX: C61 Malignant neoplasm of prostate (principal); E83.118 Other hemochromatosis; E78.9 Disorder of lipoprotein metabolism, unspecified; E03.8 Other specified hypothyroidism; I10 Essential (primary) hypertension; M15.9 Polyosteoarthritis, unspecified; E66.01 Morbid (severe) obesity due to excess calories; Z12.5 Encounter for screening for malignant neoplasm of prostate; Z13.21 Encounter for screening for nutritional disorder
CPT/HCPCS: 36415; 80053; 80061; 81001; 82306; 82607; 84153; 84439; 84443; 85025; 87086; 87088; 87186

== ENCOUNTER 2025-03-31 13:51 | Outpatient (AMB) | payer MEDICARE, SELFPAY ==
[2025-03-31 13:58] VITALS: BP 110/64; PULSE 75; O2SAT 96; BMI 40.1
--- NOTE | 2025-03-31 13:58 | A.OFFPC_ITS ---
Vital Signs 03/31/25 13:58 Height 5 ft 8 in Weight 264 lb BMI 40.1 BP 110/64 Blood Pressure Location Lt brachial Position Sitting Pulse 75 Pulse Oximetry (%) 96 Oxygen Delivery Method Room Air Intake Visit Reasons: Annual PE - see comments Allergies No Known Allergies (No Known Allergies*) Allergy (Verified 12/23/24 13:34) Medication List - Last Reconciled 03/31/25 by Bryan Aparicio MD atenolol 25 mg PO DAILY 90 days cholecalciferol (vitamin D3) 25 mcg PO DAILY cyclobenzaprine 5 mg PO BEDTIME 30 days finasteride 5 mg PO DAILY levothyroxine 150 mcg PO QAM losartan-hydrochlorothiazide 100-25 mg 1 tab PO DAILY 30 days lovastatin 20 mg PO DAILY nitrofurantoin monohyd/m-cryst 100 mg (Macrobid) 100 mg PO BID 10 days tamsulosin 0.4 mg PO DAILY 90 days Tobacco use date assessed: 09/24/24 Dental Screening Dental Screen Date: 09/24/24 HPI Annual PE - see comments HPI Details History of Present Illness The patient is a 69-year-old male presenting for a physical exam. Morbid Obesity: - The patient is morbidly obese with a B OR of 40.1. Irritable Bowel Syndrome: - The patient has a history of irritable bowel syndrome characterized by alternating diarrhea and constipation, which is unchanged. - For the last month, he has experienced a cycle of diarrhea, which he treats with Imodium, leading to constipation for a day or two. - He also reports significant flatulence . - The patient takes a probiotic but has not noticed that specific foods trigger his symptoms. Osteoarthritis: - The patient has osteoarthritis in his hips and knees, which results in reduced mobility. - He also reports associated pain in his back and neck. Hypertension: - The patient has a history of hypertens ion, which is well-controlled with a reading of 110/64 mmHg at this visit. Hypothyroidism: - The patient has a history of hypothyro idism and has been taking levothyroxine 150 mcg for a couple of years. - Recent labs showed a TSH of 4.81 with a normal free T4. Lipid Disorder: - The patient has a history of a lipid d isorder. - Recent fasting labs showed an LDL of 7 3 and an HDL of 33. Benign Prostatic Hypertrophy: - The patient has a history of prostatic hypertrophy with a recent PSA of 3.03. High Iron Levels: - The patient has a history of high iron levels and is currently under the care of a telecommunications line installer. Carpal Tunnel Syndrome: - The patient was experiencing symptoms of carpal tunnel syndrome at his last visit in November. - A specialist recommended surgery, but the patient is concerned about his ability to perform perineal hygiene post-operatively, as he cannot use his non- dominant hand for wiping. Urinary Tract Infection: - Recent urine studies showed signs of b ladder inflammation, and a subsequent culture grew E. coli. - The E. coli was resistant to the initi ally prescribed antibiotic, and he has now been started on a new antibiotic to be taken twice a day for 10 days, of which he has taken one dose. Dry Eye Syndrome: - For the last 2-3 months, the patient h as experienced significant watering of his right eye. - He had an eye exam in November, and the op tometrist noted he has extremely dry eyes and recommended Blink lubricant eye drops. Health Maintenance: - For colon cancer screening, his last c olonoscopy was in 2018, and he had a negative Cologuard test in April of last year. - He is up to date on his influenza and COVID vaccines. Medical History: - Morbid obesity (BMI 40.1) - Hypertension - Hypothyroidism - Irritable bowel syndrome with alternat ing diarrhea and constipation - Osteoarthritis of the hips and knees - High iron levels, followed by hematolo gy - Vitamin D deficiency - Benign prostatic hypertrophy - Lipid disorder - Elevated liver function tests - Cervical spine degenerative joint dise ase - Carpal tunnel syndrome - E. coli urinary tract infection Social History: - Functional Status: Mobility is reduced due to osteoarthritis. - Home Environment: Patient has a humidi fier at home. Health Maintenance - Colon Cancer Screening: Last colonosco py was in 2018. - A Cologuard test performed in April of last year was negative. - Vaccinations: Patient has received the flu and COVID vaccines. - An RSV vaccine was recommended. [place] [facility] - Patient is followed by Hematology for high iron levels. - Patient saw Dr. Lira (Urology) for a urinary tract infection. - Patient saw an senior underwriting assistant, Dr. Clarke , in November. - Patient saw a specialist for carpal tu nnel syndrome. Patient Instructions - Continue taking levothyroxine 150 mcg as you have been. We will not change the dose at this time. - Make sure to complete the full 10-day course of your new antibiotic for the urinary tract infection, taking it two times per day. - For your eye watering, you may continu e using the Blink drops your eye doctor suggested. Using a humidifier may also provide some relief. - To help with your bowel issues, pay at tention to your diet to see if certain foods are causing more gas and try to avoid them. Seeing a GI specialist is an option if your symptoms don't improve. - If you have carpal tunnel surgery, you can install a bidet on your toilet to help with cleaning after bowel movements. - It is recommended that you get the RSV vaccine, which is available at your local pharmacy. - You have enough of your muscle relaxer for now, so I will put a hold on the prescription. - Please schedule a follow-up appointmen t in four months. You will need to have fasting labs drawn before that visit to check your thyroid and kidney function. Review of Systems - General: No fever no chills - Neurological: No headaches no dizzin ess - Ear nose throat: No sore throat no hearing difficulty no ear pain - Cardiovascular: No syncope, no chest pain, no palpitations - Gastrointestinal: No nausea vomiting or diarrhea - Endocrine: No polyuria polydipsia no heat intolerance - Genitourinary: No dysuria - Skin: No new complaints Physical Exam General: Cooperative, morbidly obese, comfortable, no acute distress Orientation: Patient oriented x3 Head: Normal to inspection Ears: Within normal limit visually Nose: Normal external nose present Face and sinus: Normal facial exam Eyes: Right eye watering, left eye normal, extraocular movement intact, pupils reactive Neck: Normal visual inspection and supple Respiratory: Normal respiratory effort and able to speak in complete sentences. Clear to auscultation, no stridor Cardiovascular: S1 and S2 RRR, blood pressure 110/64 GI: Normal to inspection. Soft to palpation and nontender Skin: Turgor normal, no acute findings, Neuro: Patient oriented x3, motor sensory intact, balance intact, Extremities: Normal to inspection, foot swelling present right chronic . [facility] Medical History Elevated PSA Urge incontinence Surgical History History of knee surgery Hx of tonsillectomy Family History Brother Diabetes Maternal Grandmother Asthma Father Heart disease Mother Varicose veins of both lower extremities with pain Other Hypertension Social History Household Members: Family Housing: Apartment Are you a primary home care consultant to a significant other at home: No Do you presently have visiting nurse or other home services: No Alcohol intake: current Alcohol intake frequency: holidays/special occasions o nly Patient Tobacco Use Status: Former Tobacco user Tobacco use type: Cigar e-Cigarette/Vaping Use: Never Used Second Hand Smoke Exposure: Yes service: No Current occupational status: employed Current occupational exposures/hazards: No Cognitive needs: No Hearing needs: No Vision needs: Yes (wears glasses) Questionnaire Thrive Questionnaire Date Thrive assessed: 09/18/24 I am a: Patient What is your living situation today?: I have a steady place to live Within the past 12 months, did the food you bought not last and you didn't have the money to get more?: Never true Within the past 12 months, did you worry whether your food would run out before you got money to buy more?: Never true Do you have trouble paying for medicines?: No Do you have trouble getting transportation to medical appointments?: No Do you have trouble paying your heating and electricity bill?: I choose not to answer this question Do you have trouble taking care of your child, family member or friend?: I choose not to answer this question Do you have trouble with day-to-day activities such as bathing, preparing meals, shopping, managing finances, etc.?: No Are you currently unemployed and looking for a job?: No Are you interested in more education?: No Please select the resources that you would like help with: None Currently or been in a relationship where the following occur: No concerns reported THRIVE Score: 0 AUDIT C Alcohol Use Questionnaire (AUDIT-C) 2. How many drinks containing alcohol do you have on a typical day when you are drinking?: 1 or 2 Total Score: 0 SYLVIA-7 AMB Questionnaire SYLVIA-7 Date SYLVIA - 7 assessed: 09/24/24 Source: Developed by Drs. Damaso Reyna, Carmen Myers, Samuel Cardoso and colleagues, with an educational concepcion from [employer]. Physical exam (Primary Care) Vital Signs: Last Vital Signs Pulse 75 03/31/25 13:58 BP 110/64 03/31/25 13:58 Pulse Ox 96 03/31/25 13:58 Oxygen Delivery Method Room Air 03/31/25 13:58 BMI result Body Mass Index 40.1 Tobacco/Smoking Status: Tobacco use Status Tobacco use date assessed 09/24/24 03/31/25 13:58 Patient Tobacco Use Status Former Tobacco user 03/31/25 13:58 Tobacco use type Cigar 03/31/25 13:58 e-Cigarette/Vaping Use Never Used 03/31/25 13:58 Thrive Assessment: Date of Thrive Assessment Date Thrive assessed 09/18/24 03/31/25 13:58 Currently or been in a relationship where the following occur: No concerns reported Coding Level of Care Code Est Pt Level 3 (79169) Est Pt Prev Care >65y(09563) Diagnoses Encounter for general adult medical examination with abnormal findings Z00.01 Hypertension, essential I10 Carpal tunnel syndrome, bilateral G56.03 Other hemochromatosis E83.118 Hemochromatosis type: other hemochromatosis Lipid disorder E78.9 Other specified hypothyroidism E03.8 Morbid obesity due to excess calories E66.01 Osteoarthritis involving multiple joints on both sides of body M15.9 Irritable bowel syndrome with mixed bowel habits K58.2 Lymphedema I89.0 Elevated ferritin R79.89 BPH w urinary obs/LUTS N40.1; N13.8 Assessment & Plan Assessment & Plan (1) Encounter for general adult medical examination with abnormal findings: Code(s): Z00.01 - Encounter for general adult medical examination with abnormal findings Category: Medical (2) Hypertension, essential: Code(s): I10 - Essential (primary) hypertension Category: Medical (3) Carpal tunnel syndrome, bilateral: Code(s): G56.03 - Carpal tunnel syndrome, bilateral upper limbs Category: Medical (4) Hemochromatosis: Code(s): E83.119 - Hemochromatosis, unspecified Category: Medical Qualifiers: Hemochromatosis type: other hemochromatosis Qualified Code(s): E83.118 - Other hemochromatosis (5) Lipid disorder: Code(s): E78.9 - Disorder of lipoprotein metabolism, unspecified Category: Medical (6) Other specified hypothyroidism: Code(s): E03.8 - Other specified hypothyroidism Category: Medical (7) Morbid obesity due to excess calories: Code(s): E66.01 - Morbid (severe) obesity due to excess calories Category: Medical (8) Osteoarthritis involving multiple joints on both sides of body: Code(s): M15.9 - Polyosteoarthritis, unspecified Category: Medical (9) Irritable bowel syndrome with mixed bowel habits: Code(s): K58.2 - Mixed irritable bowel syndrome Category: Medical (10) Lymphedema: Code(s): I89.0 - Lymphedema, not elsewhere classified Category: Medical (11) Elevated ferritin: Code(s): R79.89 - Other specified abnormal findings of blood chemistry Category: Medical (12) BPH w urinary obs/LUTS: Code(s): N40.1 - Benign prostatic hyperplasia with lower urinary tract symptoms; N13.8 - Other obstructive and reflux uropathy Category: Medical Plan Morbid Obesity: - The patient is morbidly obese with a BMI of 40.1. Irritable Bowel Syndrome: - The patient has a history of irritable bowel syndrome characterized by alternating diarrhea and constipation, which is unchanged. - For the last month, he has experienced a cycle of diarrhea, which he treats with Imodium, leading to constipation for a day or two. - He also reports significant flatulence. - The patient takes a probiotic but has not noticed that specific foods trigger his symptoms. Osteoarthritis: - The patient has osteoarthritis in his hips and knees, which results in reduced mobility. - He also reports associated pain in his back and neck. Hypertension: - The patient has a history of hypertension, which is well-controlled with a reading of 110/64 mmHg at this visit. Hypothyroidism: - The patient has a history of hypothyroidism and has been taking levothyroxine 150 mcg for a couple of years. - Recent labs showed a TSH of 4.81 with a normal free T4. Lipid Disorder: - The patient has a history of a lipid disorder. - Recent fasting labs showed an LDL of 73 and an HDL of 33. Benign Prostatic Hypertrophy: - The patient has a history of prostatic hypertrophy with a recent PSA of 3.03. High Iron Levels: - The patient has a history of high iron levels and is currently under the care of a telecommunications line installer. Carpal Tunnel Syndrome: - The patient was experiencing symptoms of carpal tunnel syndrome at his last visit in November. - A specialist recommended surgery, but the patient is concerned about his ability to perform perineal hygiene post-operatively, as he cannot use his non- dominant hand for wiping. Urinary Tract Infection: - Recent urine studies showed signs of bladder inflammation, and a subsequent culture grew E. coli. - The E. coli was resistant to the initially prescribed antibiotic, and he has now been started on a new antibiotic to be taken twice a day for 10 days, of which he has taken one dose. Dry Eye Syndrome: - For the last 2-3 months, the patient has experienced significant watering of his right eye. - He had an eye exam in November, and the senior underwriting assistant noted he has extremely dry eyes and recommended Blink lubricant eye drops. Health Maintenance: - For colon cancer screening, his last colonoscopy was in 2018, and he had a negative Cologuard test in April of last year. - He is up to date on his influenza and COVID vaccines. Medical History: - Morbid obesity (BMI 40.1) - Hypertension - Hypothyroidism - Irritable bowel syndrome with alternating diarrhea and constipation - Osteoarthritis of the hips and knees - High iron levels, followed by hematology - Vitamin D deficiency - Benign prostatic hypertrophy - Lipid disorder - Elevated liver function tests - Cervical spine degenerative joint disease - Carpal tunnel syndrome - E. coli urinary tract infection Social History: - Functional Status: Mobility is reduced due to osteoarthritis. - Home Environment: Patient has a humidifier at home. Health Maintenance - Colon Cancer Screening: Last colonoscopy was in 2018. - A Cologuard test performed in April of last year was negative. - Vaccinations: Patient has received the flu and COVID vaccines. - An RSV vaccine was recommended. [place] [facility] - Patient is followed by Hematology for high iron levels. - Patient saw Dr. Lira (Urology) for a urinary tract infection. - Patient saw an senior underwriting assistant, Dr. Clarke, in November. - Patient saw a specialist for carpal tunnel syndrome. Patient Instructions - Continue taking levothyroxine 150 mcg as you have been. We will not change the dose at this time. - Make sure to complete the full 10-day course of your new antibiotic for the urinary tract infection, taking it two times per day. - For your eye watering, you may continue using the Blink drops your eye doctor suggested. Using a humidifier may also provide some relief. - To help with your bowel issues, pay attention to your diet to see if certain foods are causing more gas and try to avoid them. Seeing a GI specialist is an option if your symptoms don't improve. - If you have carpal tunnel surgery, you can install a bidet on your toilet to help with cleaning after bowel movements. - It is recommended that you get the RSV vaccine, which is available at your local pharmacy. - You have enough of your muscle relaxer for now, so I will put a hold on the prescription. - Please schedule a follow-up appointment in four months. You will need to have fasting labs drawn before that visit to check your thyroid and kidney function. Orders: Orders TSH reflex Free T4 3 Months E03.8 - Other specified hypothyroidism, E78.9 - Disorder of lipoprotein metabolism, unspecified, I10 - Essential (primary) hypertension Comprehensive Met. Panel 3 Months E03.8 - Other specified hypothyroidism, E78.9 - Disorder of lipoprotein metabolism, unspecified, I10 - Essential (primary) hypertension
--- OUTSIDE RECORDS SUMMARY | 2025-04-01 07:41 | XMS_ITS | Patient Health Record ---
Author Organization [facility] Address [address] [place] [address] Care Team Providers Care Group Work Program Aide Name Role Phone Markus ESQUIVEL, [facility] Primary Care Provider Unavailyenifer e Jerry Leong Jr Unavailable Michele Hernandez Unavailable Unavailable Allergies No Known Allergies Reason For Referral No Information Medications Medication SIG (Take, Route, Frequency, Duration) Notes Start Date End Date Status Losartan Potassium-HCTZ 100-25 MG Tablet Oral; Duration: 90 Activ e Tamsulosin HCl 0.4 MG Capsule Oral; Duration: 90 Active Atenolol 25 MG Tablet Oral; Duration: 30 Active Vitamin D (Cholecalciferol) 25 MCG (1000 UT) Capsule 1 capsule Orally Once a day; Duration: 30 day(s) 08/09/2022 Active Finasteride 5 MG Tablet Oral; Duration: 90 Active Levothyroxine Sodium 175 MCG Tablet Oral; Duration: 90 Active Lovastatin 20 MG Tablet Oral; Duration: 90 Active Immunizations Vaccine Route Administration Date Status Comme nts Influenza Unknown 02/21/2022 Administered Social History Tobacco Use: Social History Observation Description Date Details (start date - stop date) Never Smoker NA - NA Social History Drugs/Alcohol: Social Info Question Answer Notes Alcohol Screen Did you have a drink containing alcohol in the past year? No Points 0 Interpretation Negative Tobacco Use: Social Info Question Answer Notes Tobacco Use/Smoking Patient is a nonsmoker Additional Details Category Social Info Options Details Miscellaneous: Marital status: single Occupation: works full-time Problems Problem Type SNOMED Code ICD Code Onset Dates Problem Status W/U Status Risk Notes Problem Altered bowel function (21808454) Change in bowel function (R19.8) Active confirmed Plan Of Treatment Pending Test Test Name Order Date STOOL WBC 08/09/2022 OVA & PARASITES (O&P) 08/09/2022 GI PANEL 08/09/2022 Insurance Providers Payer Name Payer Address Payer Phone Subscriber Number Group Number Insured Name Patient Relationship to Insured Coverage Start Date Coverage End Date [employer] PPO [address] NAA RODRIGUEZ, ELISHA [phone] [id number] GIOVANNA HENRY Self - patient is the insured Medical (General) History Medical History History ICD Code prostate cancer high blood pressure hypothyroidsim high cholesterol Hemachromatosis Surgical History Surgery Date(Month/Year) 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
--- OUTSIDE RECORDS SUMMARY | 2025-04-01 07:41 | XMS_ITS | Clinical Summary ---
Author Organization [facility] [employer] Address [address] [address] Care Team Providers Care Senior Ecologist Name Role Phone Pcp, No Primary Care Provider [phone] Immunizations Immunization Administration Dates Next Due Pfizer Cominarty Covid-19 Prefilled Syringe (12+ yrs) 02/06/2025 Social History Tobacco Use Types Packs/Day Years [...] yrs or above (or HM Modifier)([facility]) 12/17/1971 Hepatitis C Virus Infection in Adolescents and Adults: Screening (or Modifier) ([facility]) 12/17/1971 SDCO Screening Reminder: Zulay latanya for all adults ([facility]) 12/17/1971 Tobacco Smoking Cessation: i n Adults excluding Women: Behavioral and Pharmacotherapy Interventions ([facility]) 12/17/1971 DTaP/Tdap/Td Vaccines ([facility]) (1 - Tdap) 1972 Colorectal Cancer Screening 45 -75 Yrs (or HM Modifier) 1998 Colorectal Cancer: FLEXIBLE SIGMOIDOSCOPY Screening every 5 yrs 1998 Colorectal Cancer: Fecal Imm unochemical Test (FIT) Annually [facility] 1998 Colorectal Cancer: High-sens itivity gFOBT Screening Annually [facility] 1998 Colorectal Cancer: Stool Col oguard Screening every 3 yrs 1998 Colorectal Cancer:CT Colonog dahlia Screening every 5 yrs 1998 Pneumococcal Vaccination Scr eening: Patients 50+ yrs of age ([facility]) (1 of 1 - PCV) 12/17/2003 Zoster/Shingles Vaccine Seri es Screening: Adults aged 18+ yrs (or HM Modifiers)([facility]) (1 of 2) 12/17/2003 Flu Vaccination: Ages 65+: Y early High Dose Recommended (or Modifier)([facility]) 12/12/2024 COVID-19 Vaccine Screening: Initial Series and Booster Status ([facility]) ( - 2024- season) 2025 02/06/2025 RSV Vaccines (1 - 1-dose 75+ series) 2028 [employer] Devices Not on file Care Teams Senior Ecologist Relationship Specialty Start Date End Date Pcp, No PCP - General Family Medicine 06/26/21
== END 2025-03-31 14:32 | disposition home or self-care (01) ==
LOC: HO.HMCC 13:52
PROVIDERS: PCP Internal Medicine; Visit Provider Internal Medicine
DX: Z00.01 Encounter for general adult medical examination with abnormal findings (principal); I10 Essential (primary) hypertension; E66.01 Morbid (severe) obesity due to excess calories; Z68.41 Body mass index [BMI] 40.0-44.9, adult; G56.03 Carpal tunnel syndrome, bilateral upper limbs; E83.118 Other hemochromatosis; E78.9 Disorder of lipoprotein metabolism, unspecified; E03.8 Other specified hypothyroidism; M15.9 Polyosteoarthritis, unspecified; K58.2 Mixed irritable bowel syndrome; I89.0 Lymphedema, not elsewhere classified; R79.89 Other specified abnormal findings of blood chemistry; N40.1 Benign prostatic hyperplasia with lower urinary tract symptoms; N13.8 Other obstructive and reflux uropathy

== ENCOUNTER → 2025-03-31 13:51 | Outpatient (BNVA) | payer MEDICARE, SELFPAY | PROVIDERS: PCP Internal Medicine; Visit Provider Internal Medicine | DX: Z00.01 Encounter for general adult medical examination with abnormal findings (principal); E66.01 Morbid (severe) obesity due to excess calories; M17.11 Unilateral primary osteoarthritis, right knee; M17.12 Unilateral primary osteoarthritis, left knee; M16.11 Unilateral primary osteoarthritis, right hip; M16.12 Unilateral primary osteoarthritis, left hip; I10 Essential (primary) hypertension; E78.5 Hyperlipidemia, unspecified; E83.118 Other hemochromatosis; G56.03 Carpal tunnel syndrome, bilateral upper limbs; K58.2 Mixed irritable bowel syndrome; I89.0 Lymphedema, not elsewhere classified; N40.1 Benign prostatic hyperplasia with lower urinary tract symptoms; N13.8 Other obstructive and reflux uropathy; E03.8 Other specified hypothyroidism; R79.89 Other specified abnormal findings of blood chemistry; H04.129 Dry eye syndrome of unspecified lacrimal gland | CPT/HCPCS: 99397 ==